=== PATIENT | male | born 1940 | race Caucasian/White ===

== ENCOUNTER 2016-06-21 10:00 | Inpatient (IN) | payer OTHER ==
--- NOTE | 2016-06-21 10:22 | CPEKG ---
Heart Rate: 66 RR Interval: 909 P-R Interval: 212 QRSD Interval: 100 QT Interval: 420 QTC Interval: 441 P [place]: 57 QRS [place]: -56 T Wave [place]: 19 EKG Severity - ABNORMAL ECG - EKG Impression: SINUS RHYTHM EKG Impression: LEFT ANTERIOR FASCICULAR BLOCK EKG Impression: LEFT VENTRICULAR HYPERTROPHY Electronically Signed By: Jeff Parker 21-Jun-2016 15:11:10
[2016-06-21 10:35] LABS: % IMMATURE GRANULYOCYTES 0.4 % (0.0-1.1); ABSOLUTE IMMATURE GRANULOCYTES 0.03 10^3/uL (0.00-0.10); ADD DIFF? NO; ADD MORPH? NO; ADD SCAN? NO; ATYPICAL LYMPHOCYTE FLAG 0 (0-99); FRAGMENT RBC FLAG 0 (0-99); HEMATOCRIT 42.9 % (40.0-51.0); LEFT SHIFT FLG 0 (0-99); LIPEMIA HEMOLYSIS FLAG 90 (0-99); MEAN CELL HEMOGLOBIN 31.4 pg (27.9-34.1); MEAN CELL VOLUME 89.9 fL (81.5-99.8); MEAN PLATELET VOLUME 9.5 fL (8.7-11.7); PLATELET CLUMPS FLAG 0 (0-99); PLATELET COUNT 226 10^3/uL (150-400); RED BLOOD CELL COUNT 4.77 10^6/uL (4.40-6.38); RED CELL DISTRIBUTION WIDTH 12.9 % (11.5-15.2)
--- NOTE | 2016-06-21 10:42 | EDPHY ---
H & P Time Seen by Provider: 06/21/16 10:25 HPI/ROS: Chief complaint. Expressive aphasia HPI. 75-year-old male presents to the emergency department with apparently difficulty finding words this morning. He tells me he knows what he wants to say but can't quite express it. He was apparently normal last night and then symptoms this morning. He has had similar symptoms previously that were due to hyponatremia. Denies chest discomfort, shortness of breath, abdominal pain. No weakness or altered sensation to arms or legs. No headache. No change in his vision. No new or different neck pain ROS Constitutional. no fever/chills, no weakness Eyes. no problems with vision ENT. no sore throat, no nasal drainage Cardiovascular. no chest pain Respiratory. no shortness of breath, no cough Abdominal. no abdominal pain, no nausea/vomiting, no diarrhea . no problems urinating MS. no calf pain/swelling, no neck/back pain, no joint pain Skin. no rash Lymph. no swollen glands Neuro. Difficulty speaking Past Medical/Surgical History: Past medical history significant for hyponatremia, previous neck fusions, depression, dyslipidemia, COPD, hypothyroid, hypertension Social History: , nonsmoker, no alcohol Smoking Status: Unknown if ever smoked Physical Exam: General Appearance: Alert well-developed male mild distress vital signs are stable Eyes: Pupils equal and round no pallor or injection. ENT, Mouth: Mucous membranes are moist. Respiratory: There are no retractions, lungs are clear to auscultation. Cardiovascular: Regular rate and rhythm. Gastrointestinal: Abdomen is soft and nontender, no masses, bowel sounds normal. Neurological: Awake and alert, sensory and motor exams grossly normal. Cranial nerves are normal. Speech is relatively normal. There is no pronator drift the [id number] is intact little shaky with both hands. [id number] is also intact bilaterally but a little bit shaky. Skin: Warm and dry, no rashes. Musculoskeletal: Neck is supple nontender. Extremities symmetrical, full range of motion. Psychiatric: Patient is oriented X 2, there is no agitation. He is not oriented to the day or month Constitutional: Initial Vital Signs Temperature (C) 37.2 C 06/21/16 10:13 Heart Rate 76 06/21/16 10:13 Respiratory Rate 18 06/21/16 10:13 Blood Pressure 185/109 H 06/21/16 10:13 O2 Sat (%) 94 06/21/16 10:13 O2 Delivery Mode Room Air Allergies/Adverse Reactions: No Known Allergies Allergy (Verified 06/21/16 10:13) Home Medications: Medication Instructions Recorded Albuterol [Proventil Inhaler HFA 1 - 2 puffs IH Q4H PRN 02/07/16 (*)] Acetaminophen [Tylenol 325mg (*)] 650 mg PO Q4 PRN #0 tab 02/11/16 Albuterol [Proventil Inhaler HFA 2 puffs IH Q4 PRN #0 mdi 02/11/16 (*)] Aspirin EC [Aspirin EC 81 mg (*)] 81 mg PO HS #0 tab 02/11/16 Atorvastatin Calcium [Lipitor 20 20 mg PO DAILY #0 tab 02/11/16 mg (*)] Cyclobenzaprine [Flexeril 10 MG 10 mg PO BID #0 tab 02/11/16 (*)] FLUoxetine [Prozac 20 MG (*)] 40 mg PO DAILY #0 cap 02/11/16 Fluticasone/Salmeter 250/50Mcg 1 puffs IH BID #0 disk 02/11/16 [Advair 250/50 (*)] Irbesartan [Avapro 150 mg (*)] 150 mg PO DAILY #0 tab 02/11/16 Levothyroxine [Synthroid 112 mcg 112 mcg PO DAILY@06 #0 tab 02/11/16 (*)] Magnesium Hydroxide [Milk of 30 ml PO DAILY PRN #0 udcup 02/11/16 Magnesia (*)] Melatonin [Melatonin 3 MG (*)] 3 mg PO HS #0 tab 02/11/16 OLANZapine [ZyPREXA 2.5 mg (*)] 2.5 mg PO BID #0 tab 02/11/16 [place]-3 Ethyl Est-Lovaza [Lovaza 1 2 gm PO BID #0 cap 02/11/16 gm (*)] Tamsulosin HCl [Flomax 0.4 MG (*)] 0.4 mg PO DAILY #0 cap 02/11/16 amLODIPine BESYLATE [Norvasc 2.5 2.5 mg PO DAILY #0 tab 02/11/16 mg (*)] carBAMazepine ER [Tegretol Xr] 400 mg PO BID #0 tab 02/11/16 Medical Decision Making - Diagnostics EKG Interpretation: The EKG interpreted by me shows normal sinus rhythm with normal interval. There is left axis deviation. There is a left anterior fascicular block. LVH by voltage. No significant ST elevation or depression. No arrhythmia. The rate is 66 Imaging: Head CT reviewed by me and discussed with Dr. gan is interpreted as nonacute One-view chest x-ray interpreted by me is nonacute Procedures: IV normal saline, monitor ED Course/Re-evaluation: Re-evaluation patient remains stable. He and I discussed imaging study results, treatment plan including recommendation for admission and importance of further evaluation. He expresses understanding and agreement I consulted and discussed the case with patient's regular physician Dr. Velasquez who sees the patient in the emergency department Differential Diagnosis: I differential diagnosis includes electrolyte abnormalities, CVA, TIA, intracranial hemorrhage - Data Points Laboratory Results: Laboratory Results 06/21/16 10:30 06/21/16 10:30 06/21/16 10:30 WBC 7.04 10^3/uL (3.80-9.50) RBC 4.77 10^6/uL (4.40-6.38) Hgb 15.0 g/dL (13.7-17.5) Hct 42.9 % (40.0-51.0) MCV 89.9 fL (81.5-99.8) MCH 31.4 pg (27.9-34.1) MCHC 35.0 g/dL (32.4-36.7) RDW 12.9 % (11.5-15.2) Plt Count 226 10^3/uL (150-400) MPV 9.5 fL (8.7-11.7) Neut % (Auto) 63.9 % (39.3-74.2) Lymph % (Auto) 21.6 % (15.0-45.0) [place] % (Auto) 9.5 % (4.5-13.0) Eos % (Auto) 4.0 % (0.6-7.6) Baso % (Auto) 0.6 % (0.3-1.7) Nucleat RBC Rel Count 0.0 % (0.0-0.2) Absolute Neuts (auto) 4.50 10^3/uL (1.70-6.50) Absolute Lymphs (auto) 1.52 10^3/uL (1.00-3.00) Absolute Monos (auto) 0.67 10^3/uL (0.30-0.80) Absolute Eos (auto) 0.28 10^3/uL (0.03-0.40) Absolute Basos (auto) 0.04 10^3/uL (0.02-0.10) Absolute Nucleated RBC 0.00 10^3/uL (0-0.01) Immature Gran % 0.4 % (0.0-1.1) Immature Gran # 0.03 10^3/uL (0.00-0.10) PT 11.7 L SEC (12.0-15.0) INR 0.87 (0.83-1.16) Sodium 138 mEq/L (134-144) Potassium 4.1 mEq/L (3.5-5.2) Chloride 100 mEq/L (97-110) Carbon Dioxide 28 mEq/l (22-31) Anion Gap 10 mEq/L (8-16) BUN 11 mg/dL (7-23) Creatinine 0.6 L mg/dL (0.7-1.3) Estimated GFR > 60 Glucose 118 H mg/dL (70-100) Calcium 9.7 mg/dL (8.5-10.4) Troponin I < 0.012 ng/mL (0-0.034) Departure - Departure Disposition: [facility] [place] Acute Clinical Impression: Expressive aphasia Transient cerebral ischemia Qualifiers: Transient cerebral ischemia type: other Qualifier Code: (G45.8) Other transient cerebral ischemic attacks and related syndromes Condition: Fair
[2016-06-21 10:52] LABS: ANION GAP 10 mEq/L (8-16); CALCIUM 9.7 mg/dL (8.5-10.4); CARBON DIOXIDE 28 mEq/l (22-31); CHLORIDE 100 mEq/L (97-110); CREATININE 0.6 mg/dL (0.7-1.3); GLOMERULAR FILTRATION RATE > 60; GLUCOSE 118 mg/dL (70-100); POTASSIUM 4.1 mEq/L (3.5-5.2); SODIUM 138 mEq/L (134-144)
[2016-06-21 10:54] LABS: INR 0.87 (0.83-1.16); PROTIME(PATIENT) 11.7 SEC (12.0-15.0)
[2016-06-21 11:03] LABS: TROPONIN I < 0.012 ng/mL (0-0.034)
--- NOTE | 2016-06-21 11:26 | CT ---
CT Brain (Without Contrast) June 21, 2016 at 11:11 hours History: Expressive aphasia. Comparison: MR February 07, 2016. Technique: Axial computed tomographic images of the brain without contrast. Dose reduction techniques were utilized. Findings: Ventricles, cisterns, and sulci are widened consistent with atrophy. No hydrocephalus, mid line shift/herniation, or epidural/subdural hematomas. No acute intraparenchymal hemorrhage or mass e ffect. Cerebrovascular atherosclerosis. Hypodensities in the white matter of bilateral cerebral hemis pheres. Bone windows demonstrate no displaced fractures. Mild mucosal thickening in the left maxilla ry sinus is present. Impression: 1. Moderate atrophy. 2. No acute hemorrhage, hydrocephalus, or mass effect. 3. Cerebrovascular atherosclerosis. 4. No definite acute infarct. 5. Moderate microvascular ischemic disease. Critical results relayed by Dr. Ballard to Dr. Parker at 11:23 a.m. 6. Consider MRI of the brain without and with contrast enhancement, if there is continued clinical co ncern.
--- NOTE | 2016-06-21 11:34 | DX ---
Portable AP Upright Chest - June 21, 2016, at 10:53 a.m. Clinical History: 75-year-old male with a syncopal event and an altered mental status. Comparison Study: Chest, dated July 15, 2013. Findings: Cervical arthrodesis hardware is once again seen. Telemetry monitoring lead lines are pres ent. There is a thoracolumbar junction scoliosis, with multilevel degenerative changes. The cardiac a nd mediastinal silhouette are normal. There is no focal infiltrate, atelectasis, pleural effusion, pe ripheral interstitial edema, or pneumothorax. Impression: No acute abnormality.
[2016-06-21 13:17] LABS: VITAMIN D 25-HYDROXY TOTAL 33.9 ng/mL (30-100)
[2016-06-21 13:42] LABS: HEMATOCRIT 42.9 % (40.0-51.0)
[2016-06-21] MEDS ORDERED: ALBUTEROL 60 PUFFS/8 GM MDI IH PRN (16:05)
[2016-06-21] MEDS: FLUoxetine 20 MG CAP PO SCH (17:36)
[2016-06-21] MEDS: CHLORTHALIDONE 25 MG TAB PO SCH (17:37)
[2016-06-21] MEDS: ASPIRIN 81 MG CHEWABLE TAB PO SCH (17:37)
[2016-06-21] MEDS: IRBESARTAN 150 MG TAB PO SCH (17:40)
--- NOTE | 2016-06-21 18:14 | GHP ---
[f rep st] HISTORY AND PHYSICAL DATE OF ADMISSION: 06/21/2016 REASON FOR ADMISSION: Mental status changes. HISTORY OF PRESENT ILLNESS: The patient states he has not been feeling very good for the last week o r so. Last night he had severe pain in his right hip. His suggested he call an ambulance last night for his hip pain; but he did not do so. This morning he awakened, and was feeling lousy. As trey burns got up, he noticed that he did not seem to be thinking clearly, had trouble finding words, and pres ented to the emergency room for evaluation. When he got to the emergency room, his blood pressure was elevated at 185/109. There was some concer n about the possibility of a transient ischemic attack versus a small CVA. CT of the head was unrema rkable. The patient states he felt lousy, and admitted for further evaluation. PAST MEDICAL HISTORY: Significant for obsessive-compulsive disorder, depression, back surgery, neck surgery, hypertension. REVIEW OF SYSTEMS: CONSTITUTIONAL: He feels bad, but is not able to be more descriptive as to how b ad he feels. CARDIOPULMONARY: He denies chest pain or shortness of breath. EXTREMITIES: His leg p ain is better today. NEUROLOGIC: He feels generally weak. PHYSICAL EXAMINATION: VITAL SIGNS: Blood pressure 185/109, pulse 76 regular, respirations 18, tempe rature 37.2, oxygen saturation 94% on room air. HEENT: Pupils were equal and reactive to light. Th roat was normal. HEART: Regular rate and rhythm without obvious murmur. LUNGS: Clear to auscultat ion. ABDOMEN: Slightly distended. Bowel sounds were normal. EXTREMITIES: Peripheral pulses were present. He had 1+ edema in his left leg, none in his right. Strength was excellent in his feet. IMPRESSION: Transient confusion of uncertain etiology. PLAN: 1. Will admit. 2. Will get physical therapy and occupational therapy evaluations. 3. Will work on getting his blood pressure under better control. /[id number]/MODL
[2016-06-21] MEDS: OMEGA-3 ETHYL EST-LOVAZA 1 GM CAP PO SCH (21:48)
[2016-06-21] MEDS: TAMSULOSIN HCL 0.4 MG CAP PO SCH (21:48)
[2016-06-21] MEDS: GABAPENTIN 100 MG CAP PO SCH (21:48)
[2016-06-21] MEDS: CYCLOBENZAPRINE 10 MG TAB PO SCH (21:48)
[2016-06-21] MEDS: OLANZapine 2.5 MG TAB PO SCH (21:48)
[2016-06-21] MEDS: ATORVASTATIN CALCIUM 20 MG TAB PO SCH (21:48)
[2016-06-21] MEDS: LORazepam 0.5 MG TAB PO PRN (21:49)
[2016-06-21] MEDS: FLUTICASONE/SALMETER 250/50MCG DISKUS IH SCH (21:55)
[2016-06-21] MEDS: ACETAMINOPHEN 325 MG TAB PO PRN (22:52)
[2016-06-22] MEDS: FLUoxetine 20 MG CAP PO SCH (08:19)
[2016-06-22] MEDS: OMEGA-3 ETHYL EST-LOVAZA 1 GM CAP PO SCH ×2 (08:20→21:15)
[2016-06-22] MEDS: IRBESARTAN 150 MG TAB PO SCH (08:20)
[2016-06-22] MEDS: CHLORTHALIDONE 25 MG TAB PO SCH (08:21)
[2016-06-22] MEDS: OLANZapine 2.5 MG TAB PO SCH ×2 (08:21→21:14)
[2016-06-22] MEDS: ASPIRIN 81 MG CHEWABLE TAB PO SCH (08:22)
[2016-06-22] MEDS: LEVOTHYROXINE 112 MCG TAB PO SCH (08:30)
[2016-06-22] MEDS: FLUTICASONE/SALMETER 250/50MCG DISKUS IH SCH (09:12)
--- NOTE | 2016-06-22 16:38 | SOAPPROG ---
SOAP Progress Note Assessment/Plan: Assessment: Confusion. Unsteady. Word finding issues. Plan: Reduce prozac. Follow symptoms. PTm OT consult. 06/22/16 16:38 Subjective: Still feeling bad. Non-descriptive. Bowels moving OK. Feels unsteady on his feet. Still feeling confused and having word finding issues. Objective: Vital Signs Temp Pulse Resp BP Pulse Ox 36.7 C 68 20 148/75 H 91 L 06/22/16 08:00 06/22/16 08:20 06/22/16 08:00 06/22/16 08:20 06/22/16 08:20 06/21/16 06/22/16 06/23/16 05:59 05:59 05:59 Output Total 125 Balance -125 PT 11.7 SEC (12.0-15.0) L 06/21/16 10:30 INR 0.87 (0.83-1.16) 06/21/16 10:30 Lungs clear to asc. COR RRR. BP better controlled. ICD10 Worksheet Patient Problems: Problems Problem Status Diagnosed Confusion Acute Expressive aphasia Acute Head injury Acute Scalp laceration Acute Syncope Acute TIA (transient ischemic attack) Acute Anxiety Acute Hypertension Acute OCD (obsessive compulsive disorder) Acute Spinal stenosis Acute
[2016-06-22] MEDS: ATORVASTATIN CALCIUM 20 MG TAB PO SCH (21:14)
[2016-06-22] MEDS: TAMSULOSIN HCL 0.4 MG CAP PO SCH (21:14)
[2016-06-22] MEDS: CYCLOBENZAPRINE 10 MG TAB PO SCH (21:14)
[2016-06-22] MEDS: GABAPENTIN 100 MG CAP PO SCH (21:14)
[2016-06-22] MEDS: LORazepam 0.5 MG TAB PO PRN (21:15)
--- NOTE | 2016-06-23 09:00 | SOAPPROG ---
SOAP Progress Note Assessment/Plan: Assessment: Confusion. Unsteady. Word finding issues- improved on lower dose of prozac. Hypertension not adequately controlled Plan: Reduce prozac. Follow symptoms. PT OT consult. Add guanfacine for blood pressure. Add trazodone for sleep. 06/22/16 16:38 06/23/16 08:59 Subjective: feels a little tired this morning. Not having significant leg pain, mild leg pain yesterday. Objective: Vital Signs Temp Pulse Resp BP Pulse Ox 36.7 C 66 22 H 156/70 H 91 L 06/23/16 08:00 06/23/16 08:00 06/23/16 08:00 06/23/16 08:00 06/23/16 08:00 06/22/16 06/23/16 06/24/16 05:59 05:59 05:59 Intake Total 500 Output Total 125 Balance -125 500 PT 11.7 SEC (12.0-15.0) L 06/21/16 10:30 INR 0.87 (0.83-1.16) 06/21/16 10:30 Blood pressure still elevated. He is a little more with it and easier to find words today. ICD10 Worksheet Patient Problems: Problems Problem Status Diagnosed Confusion Acute Expressive aphasia Acute Head injury Acute Scalp laceration Acute Syncope Acute TIA (transient ischemic attack) Acute Anxiety Acute Hypertension Acute OCD (obsessive compulsive disorder) Acute Spinal stenosis Acute
[2016-06-23] MEDS: ASPIRIN 81 MG CHEWABLE TAB PO SCH (09:04)
[2016-06-23] MEDS: LEVOTHYROXINE 112 MCG TAB PO SCH (09:04)
[2016-06-23] MEDS: OLANZapine 2.5 MG TAB PO SCH ×2 (09:05→21:30)
[2016-06-23] MEDS: CHLORTHALIDONE 25 MG TAB PO SCH (09:05)
[2016-06-23] MEDS: OMEGA-3 ETHYL EST-LOVAZA 1 GM CAP PO SCH ×2 (09:05→21:30)
[2016-06-23] MEDS: IRBESARTAN 150 MG TAB PO SCH (09:05)
[2016-06-23] MEDS: FLUoxetine 20 MG CAP PO SCH (09:05)
[2016-06-23] MEDS: carBAMazepine ER 400 MG TAB PO SCH ×2 (10:33→21:29)
[2016-06-23] MEDS: ACETAMINOPHEN 325 MG TAB PO PRN (18:12)
[2016-06-23] MEDS: GABAPENTIN 100 MG CAP PO SCH (21:30)
[2016-06-23] MEDS: TAMSULOSIN HCL 0.4 MG CAP PO SCH (21:30)
[2016-06-23] MEDS: traZODone 50 MG TAB PO SCH (21:30)
[2016-06-23] MEDS: guanFACINE HCL 1 MG TAB PO SCH (21:30)
[2016-06-23] MEDS: CYCLOBENZAPRINE 10 MG TAB PO SCH (21:30)
[2016-06-23] MEDS: ATORVASTATIN CALCIUM 20 MG TAB PO SCH (21:56)
[2016-06-23] MEDS: LORazepam 0.5 MG TAB PO PRN (23:09)
[2016-06-24] MEDS: LEVOTHYROXINE 112 MCG TAB PO SCH (06:02)
[2016-06-24] MEDS: OMEGA-3 ETHYL EST-LOVAZA 1 GM CAP PO SCH ×2 (08:32→20:44)
[2016-06-24] MEDS: ASPIRIN 81 MG CHEWABLE TAB PO SCH (08:32)
[2016-06-24] MEDS: carBAMazepine ER 400 MG TAB PO SCH ×2 (08:33→20:45)
[2016-06-24] MEDS: FLUoxetine 20 MG CAP PO SCH (08:33)
[2016-06-24] MEDS: IRBESARTAN 150 MG TAB PO SCH (08:33)
--- NOTE | 2016-06-24 08:33 | SOAPPROG ---
SOAP Progress Note Assessment/Plan: Assessment: Plan: 06/24/16 08:33 acute encephalopathy--likely due to a mixture of hypertensive urgency and psychotropics. complex depression--seemingly good mood stability HTN improving on average, but elevated this am. Meds adjusted yesterday, will see how this evolves word finding deficits, weakness--continue PT/OT today. Will see how he does. Dispo--ideally home with HC when appropriate. He has done exceedingly poorly in the SNF setting. Subjective: The patient states the night was far better for sleep. He is still resting comfortably this am. No sense of how strong he feels yet. Objective: Vital Signs Temp Pulse Resp BP Pulse Ox 34.5 C L 64 18 165/74 H 90 L 06/24/16 08:00 06/24/16 08:00 06/24/16 08:00 06/24/16 08:00 06/24/16 08:00 06/23/16 06/24/16 06/25/16 05:59 05:59 05:59 Intake Total 500 Balance 500 PT 11.7 SEC (12.0-15.0) L 06/21/16 10:30 INR 0.87 (0.83-1.16) 06/21/16 10:30 Gen: slumberous, answers questions easily. Lungs: CTAB Heart: RRR Abd + bs soft LE's no edema Neuro: sleepy this am. Answers are appropriate, but he has yet to wake up and test the day ICD10 Worksheet Patient Problems: Problems Problem Status Diagnosed Confusion Acute Expressive aphasia Acute Head injury Acute Scalp laceration Acute Syncope Acute TIA (transient ischemic attack) Acute Anxiety Acute Hypertension Acute OCD (obsessive compulsive disorder) Acute Spinal stenosis Acute
[2016-06-24] MEDS: CHLORTHALIDONE 25 MG TAB PO SCH (08:34)
[2016-06-24] MEDS: OLANZapine 2.5 MG TAB PO SCH ×2 (08:34→20:45)
[2016-06-24] MEDS: GABAPENTIN 100 MG CAP PO SCH (20:45)
[2016-06-24] MEDS: guanFACINE HCL 1 MG TAB PO SCH (20:45)
[2016-06-24] MEDS: ATORVASTATIN CALCIUM 20 MG TAB PO SCH (20:45)
[2016-06-24] MEDS: CYCLOBENZAPRINE 10 MG TAB PO SCH (20:45)
[2016-06-24] MEDS: TAMSULOSIN HCL 0.4 MG CAP PO SCH (20:49)
[2016-06-24] MEDS: traZODone 50 MG TAB PO SCH (20:49)
[2016-06-25] MEDS: LEVOTHYROXINE 112 MCG TAB PO SCH (04:50)
[2016-06-25 05:19] LABS: ANION GAP 11 mEq/L (8-16); CALCIUM 9.3 mg/dL (8.5-10.4); CARBON DIOXIDE 25 mEq/l (22-31); CHLORIDE 101 mEq/L (97-110); CREATININE 0.8 mg/dL (0.7-1.3); GLOMERULAR FILTRATION RATE > 60; GLUCOSE 125 mg/dL (70-100); POTASSIUM 4.2 mEq/L (3.5-5.2); SODIUM 137 mEq/L (134-144)
[2016-06-25] MEDS: OMEGA-3 ETHYL EST-LOVAZA 1 GM CAP PO SCH ×2 (08:24→19:52)
[2016-06-25] MEDS: ASPIRIN 81 MG CHEWABLE TAB PO SCH (08:24)
[2016-06-25] MEDS: CHLORTHALIDONE 25 MG TAB PO SCH (08:24)
[2016-06-25] MEDS: FLUoxetine 20 MG CAP PO SCH (08:24)
[2016-06-25] MEDS: OLANZapine 2.5 MG TAB PO SCH ×2 (08:24→19:52)
[2016-06-25] MEDS: carBAMazepine ER 400 MG TAB PO SCH ×2 (08:24→19:55)
[2016-06-25] MEDS: IRBESARTAN 150 MG TAB PO SCH (08:25)
--- NOTE | 2016-06-25 13:53 | SOAPPROG ---
SOAP Progress Note Assessment/Plan: Assessment: Confusion. Unsteady. Word finding issues- improved on lower dose of prozac. Hypertension now adequately controlled. Leg pain, probably radicular. Plan: Follow symptoms. PT OT consult. MRI of lumbar spine. 06/22/16 16:38 06/23/16 08:59 06/25/16 13:52 Subjective: Still having dunia in his R leg. Sleeping OK. Feeling somewhat weak and continues to have some word finding issues. Objective: Vital Signs Temp Pulse Resp BP Pulse Ox 36.8 C 62 16 142/80 H 93 06/25/16 07:15 06/25/16 07:15 06/25/16 07:15 06/25/16 07:15 06/25/16 07:15 Laboratory Results 06/25/16 04:33 06/24/16 06/25/16 06/26/16 05:59 05:59 05:59 Output Total 900 600 Balance -900 -600 PT 11.7 SEC (12.0-15.0) L 06/21/16 10:30 INR 0.87 (0.83-1.16) 06/21/16 10:30 No pain with rotation of hips. No edema in legs. Lungs clear. COR RRR ICD10 Worksheet Patient Problems: Problems Problem Status Diagnosed Confusion Acute Expressive aphasia Acute Head injury Acute Scalp laceration Acute Syncope Acute TIA (transient ischemic attack) Acute Anxiety Acute Hypertension Acute OCD (obsessive compulsive disorder) Acute Spinal stenosis Acute
[2016-06-25] MEDS: ACETAMINOPHEN 325 MG TAB PO PRN (19:52)
[2016-06-25] MEDS: ATORVASTATIN CALCIUM 20 MG TAB PO SCH (19:52)
[2016-06-25] MEDS: GABAPENTIN 100 MG CAP PO SCH (19:52)
[2016-06-25] MEDS: TAMSULOSIN HCL 0.4 MG CAP PO SCH (19:52)
[2016-06-25] MEDS: MELATONIN 3 MG TAB PO PRN (19:52)
[2016-06-25] MEDS: CYCLOBENZAPRINE 10 MG TAB PO SCH (19:53)
[2016-06-25] MEDS: guanFACINE HCL 1 MG TAB PO SCH (19:53)
[2016-06-25] MEDS: traZODone 50 MG TAB PO SCH (19:53)
[2016-06-26] MEDS: LEVOTHYROXINE 112 MCG TAB PO SCH (05:02)
[2016-06-26] MEDS: ACETAMINOPHEN 325 MG TAB PO PRN ×2 (05:02→13:49)
--- NOTE | 2016-06-26 09:12 | MR ---
MRI of the Lumbar Spine (Without Contrast) Clinical Indications: Back pain radiating down to the right leg. Comparison: March 16, 2013. Technique: Sagittal and axial images of the lumbar spine were acquired using T1-weighted and fast T2 -weighted sequences. Findings: The patient has mild biphasic scoliosis of the lumbar spine. The conus terminates at L1. Th ere is no acute compression deformity. There is new onset bone marrow edema/T2 hyperintensity in T12 and L1. In the absence of compression deformity of the vertebrae, primary differential is edema relat ed to degenerative disk disease. Similarly, to a milder extent, there is edema at the superior left s valeria of L5, also without discernible fracture or compression deformity. The paraspinal soft tissues ar e symmetric without mass or adenopathy. T10-T11: There is moderate bilateral facet arthropathy. There is a small central broad-based disk bul ge with moderate canal stenosis. There is moderate bilateral foraminal stenosis. T11-T12: Again noted is bilateral moderate facet arthropathy and a broad-based central disk bulge. Th ere is mild canal stenosis, moderate right foraminal stenosis, and mild left foraminal stenosis. At T12-L1: There is a moderate central broad-based disk bulge with bilateral facet disease causing mo derate canal stenosis and severe bilateral foraminal stenosis, right worse than left. L1-L2: There is moderate canal stenosis caused by a broad-based central disk bulge. Combined with fac et disease, there is severe left foraminal stenosis and moderate right foraminal stenosis. L2-L3: There is moderate bilateral facet disease and a small central broad-based disk bulge. There is severe left foraminal stenosis with a left L2 nerve impingement, caused by the disk bulge and facet disease. There is mild central canal stenosis. L3-L4: There is mild central canal stenosis, and moderate right and severe left foraminal stenosis. A gain, these are caused by broad-based central disk bulge and facet arthropathy. L4-L5: There is moderate to severe canal stenosis with a central broad-based disk bulge. The right fo ramen is severely stenotic, with right L4 nerve impingement. L5-S1: There is a broad-based central disk bulge with moderate bilateral facet arthropathy. The janell inal stenosis is moderate to severe bilaterally. Impression: 1. Central disk bulge and facet disease throughout the visualized thoracolumbar spine. 2. Multiple levels of canal and foraminal stenoses, all for the most part moderate to severe, through out the visualized thoracolumbar spine. Basically, there would be an anatomic explanation for any loc ation of pain in this patient. Injection can be performed correlating to the location of pain and the likely nerve/level involved, if clinically indicated. 3. New bone marrow edema in T12 and L1, and also to a milder extent at L5. Primary differential for t his is worsening degenerative disk disease. In the absence of any visible fracture or compression def ormity, insufficiency fracture is thought to be less likely as a cause of this edema.
[2016-06-26] MEDS: OMEGA-3 ETHYL EST-LOVAZA 1 GM CAP PO SCH ×2 (11:15→20:05)
[2016-06-26] MEDS: IRBESARTAN 150 MG TAB PO SCH (11:16)
[2016-06-26] MEDS: FLUoxetine 20 MG CAP PO SCH (11:16)
[2016-06-26] MEDS: carBAMazepine ER 400 MG TAB PO SCH ×2 (11:16→20:06)
[2016-06-26] MEDS: CHLORTHALIDONE 25 MG TAB PO SCH (11:17)
[2016-06-26] MEDS: ASPIRIN 81 MG CHEWABLE TAB PO SCH (11:17)
[2016-06-26] MEDS: OLANZapine 2.5 MG TAB PO SCH ×2 (11:17→20:04)
--- NOTE | 2016-06-26 13:07 | SOAPPROG ---
SOAP Progress Note Assessment/Plan: Assessment: Confusion. Depression. 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 Plan: Add wellbutrin. Consider nerve root injection if symptoms persist. PT/ OT . SNF soon. 06/22/16 16:38 06/23/16 08:59 06/25/16 13:52 06/26/16 13:06 Subjective: Depression is a bit worse today. On lower dose of prozac. No BM for 2 days. Back pain is intermittently problematic. Objective: Vital Signs Temp Pulse Resp BP Pulse Ox 35.9 C L 65 16 155/67 H 92 06/26/16 08:00 06/26/16 08:00 06/26/16 08:00 06/26/16 08:00 06/26/16 08:00 Laboratory Results 06/25/16 04:33 06/25/16 06/26/16 06/27/16 05:59 05:59 05:59 Intake Total 800 Output Total 900 1300 Balance -900 -500 PT 11.7 SEC (12.0-15.0) L 06/21/16 10:30 INR 0.87 (0.83-1.16) 06/21/16 10:30 Lungs clear. COR RRR. MRI of lumbar spine reviewed. ICD10 Worksheet Patient Problems: Problems Problem Status Diagnosed Confusion Acute Expressive aphasia Acute Head injury Acute Scalp laceration Acute Syncope Acute TIA (transient ischemic attack) Acute Anxiety Acute Hypertension Acute OCD (obsessive compulsive disorder) Acute Spinal stenosis Acute
[2016-06-26] MEDS: MAGNESIUM OXIDE 400 MG TAB PO SCH (13:49)
[2016-06-26] MEDS: buPROPion XL 150 MG TAB PO SCH (13:49)
[2016-06-26] MEDS: IBUPROFEN 200 MG TAB PO PRN (15:28)
[2016-06-26] MEDS: guanFACINE HCL 1 MG TAB PO SCH (20:02)
[2016-06-26] MEDS: DOCUSATE SODIUM 100 MG CAP PO PRN (20:04)
[2016-06-26] MEDS: GABAPENTIN 100 MG CAP PO SCH (20:04)
[2016-06-26] MEDS: ATORVASTATIN CALCIUM 20 MG TAB PO SCH (20:05)
[2016-06-26] MEDS: SENNOSIDES/DOCUSATE SODIUM TAB PO PRN (20:05)
[2016-06-26] MEDS: traZODone 50 MG TAB PO SCH (20:06)
[2016-06-26] MEDS: CYCLOBENZAPRINE 10 MG TAB PO SCH (20:06)
[2016-06-26] MEDS: TAMSULOSIN HCL 0.4 MG CAP PO SCH (20:06)
[2016-06-26] MEDS: MELATONIN 3 MG TAB PO PRN (20:06)
[2016-06-26] MEDS: LORazepam 0.5 MG TAB PO PRN (20:07)
[2016-06-27] MEDS: ACETAMINOPHEN 325 MG TAB PO PRN ×2 (03:12→16:44)
[2016-06-27] MEDS: IBUPROFEN 200 MG TAB PO PRN ×2 (03:12→16:46)
[2016-06-27] MEDS: LEVOTHYROXINE 112 MCG TAB PO SCH (03:13)
[2016-06-27] MEDS: carBAMazepine ER 400 MG TAB PO SCH ×2 (08:22→20:14)
[2016-06-27] MEDS: OLANZapine 2.5 MG TAB PO SCH ×2 (08:23→20:17)
[2016-06-27] MEDS: MAGNESIUM OXIDE 400 MG TAB PO SCH (08:23)
[2016-06-27] MEDS: buPROPion XL 150 MG TAB PO SCH (08:23)
[2016-06-27] MEDS: CHLORTHALIDONE 25 MG TAB PO SCH (08:23)
[2016-06-27] MEDS: OMEGA-3 ETHYL EST-LOVAZA 1 GM CAP PO SCH ×2 (08:24→20:14)
[2016-06-27] MEDS: FLUoxetine 20 MG CAP PO SCH (08:27)
[2016-06-27] MEDS: ASPIRIN 81 MG CHEWABLE TAB PO SCH (08:27)
[2016-06-27] MEDS: IRBESARTAN 150 MG TAB PO SCH (08:27)
--- NOTE | 2016-06-27 13:43 | SOAPPROG ---
SOAP Progress Note Assessment/Plan: Assessment: Confusion. Depression. 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 WEakness Plan: Continue current treatment. [facility] in AM. 06/22/16 16:38 06/23/16 08:59 06/25/16 13:52 06/26/16 13:06 06/27/16 13:43 Subjective: Feeling better today. Less depressed. BM yesterday. Objective: Vital Signs Temp Pulse Resp BP Pulse Ox 36.9 C 68 12 155/80 H 92 06/27/16 08:19 06/27/16 08:19 06/27/16 08:19 06/27/16 08:19 06/27/16 08:19 Laboratory Results 06/25/16 04:33 06/26/16 06/27/16 06/28/16 05:59 05:59 05:59 Intake Total 800 375 Output Total 1300 850 Balance -500 -475 PT 11.7 SEC (12.0-15.0) L 06/21/16 10:30 INR 0.87 (0.83-1.16) 06/21/16 10:30 Mild cough despite lungs clear to asc. COR RRR. No significant edema. ICD10 Worksheet Patient Problems: Problems Problem Status Diagnosed Confusion Acute Expressive aphasia Acute Head injury Acute Scalp laceration Acute Syncope Acute TIA (transient ischemic attack) Acute Anxiety Acute Hypertension Acute OCD (obsessive compulsive disorder) Acute Spinal stenosis Acute
[2016-06-27] MEDS: traZODone 50 MG TAB PO SCH (20:14)
[2016-06-27] MEDS: guanFACINE HCL 1 MG TAB PO SCH (20:15)
[2016-06-27] MEDS: CYCLOBENZAPRINE 10 MG TAB PO SCH (20:15)
[2016-06-27] MEDS: DOCUSATE SODIUM 100 MG CAP PO PRN (20:15)
[2016-06-27] MEDS: MELATONIN 3 MG TAB PO PRN (20:17)
[2016-06-27] MEDS: TAMSULOSIN HCL 0.4 MG CAP PO SCH (20:17)
[2016-06-27] MEDS: SENNOSIDES/DOCUSATE SODIUM TAB PO PRN (20:17)
[2016-06-27] MEDS: ATORVASTATIN CALCIUM 20 MG TAB PO SCH (20:17)
[2016-06-27] MEDS: GABAPENTIN 100 MG CAP PO SCH (20:18)
[2016-06-27] MEDS: LORazepam 0.5 MG TAB PO PRN (20:18)
[2016-06-28] MEDS: LEVOTHYROXINE 112 MCG TAB PO SCH (06:12)
[2016-06-28] MEDS: ASPIRIN 81 MG CHEWABLE TAB PO SCH (09:25)
[2016-06-28] MEDS: CHLORTHALIDONE 25 MG TAB PO SCH (09:25)
[2016-06-28] MEDS: FLUoxetine 20 MG CAP PO SCH (09:25)
[2016-06-28] MEDS: OMEGA-3 ETHYL EST-LOVAZA 1 GM CAP PO SCH ×2 (09:25→20:38)
[2016-06-28] MEDS: buPROPion XL 150 MG TAB PO SCH (09:25)
[2016-06-28] MEDS: OLANZapine 2.5 MG TAB PO SCH ×2 (09:26→20:43)
[2016-06-28] MEDS: carBAMazepine ER 400 MG TAB PO SCH ×2 (09:26→20:42)
[2016-06-28] MEDS: MAGNESIUM OXIDE 400 MG TAB PO SCH (09:26)
[2016-06-28] MEDS: IRBESARTAN 150 MG TAB PO SCH (09:26)
--- NOTE | 2016-06-28 09:47 | PDIAF ---
- Diagnosis Code Status: Full Code - Medication Management Discharge Medications: Medications to Continue on Transfer Fluticasone/Salmeter 250/50Mcg [Advair 250/50 (*)] 1 puffs IH BID #0 disk [Last Taken 06/20/16 21:00] Diclofenac Sodium [Voltaren Gel (*)] 1 [place] TP BID PRN 06/21/16 [Last Taken Unknown] Acetaminophen [Tylenol 325mg (*)] 325 mg PO Q6 PRN #0 tab 06/28/16 [Last Taken Unknown] Albuterol [Proventil Inhaler HFA (*)] 2 puffs IH Q4H PRN #0 mdi 06/28/16 [Last Taken Unknown] Aspirin [Aspirin 81mg (*)] 81 mg PO DAILY #0 tab.chew 06/28/16 [Last Taken Unknown] Atorvastatin Calcium [Lipitor 20 mg (*)] 20 mg PO HS #0 tab 06/28/16 [Last Taken Unknown] Chlorthalidone [Chlorthalidone 25 mg (*)] 25 mg PO DAILY #0 tab 06/28/16 [Last Taken Unknown] Cyclobenzaprine [Flexeril 10 MG (*)] 10 mg PO HS #0 tab 06/28/16 [Last Taken Unknown] Docusate Sodium [Colace 100 MG (*)] 100 mg PO BID PRN #0 cap 06/28/16 [Last Taken Unknown] FLUoxetine [Prozac 20 MG (*)] 20 mg PO DAILY #0 cap 06/28/16 [Last Taken Unknown ] Gabapentin [Neurontin 100 MG (*)] 100 mg PO HS #0 cap 06/28/16 [Last Taken Unknown] Ibuprofen [Motrin (*)] 400 mg PO Q6HRS PRN #0 tab 06/28/16 [Last Taken Unknown] Irbesartan [Avapro 150 mg (*)] 150 mg PO DAILY #0 tab 06/28/16 [Last Taken Unknown] LORazepam [Ativan (*)] 0.25 mg PO HS PRN #0 tab 06/28/16 [Last Taken Unknown] Levothyroxine [Synthroid 112 mcg (*)] 112 mcg PO DAILY@06 #0 tab 06/28/16 [Last Taken Unknown] Magnesium Oxide [Magnesium Oxide 400 mg (*)] 400 mg PO DAILY #0 tab 06/28/16 [ Last Taken Unknown] Melatonin [Melatonin 3 MG (*)] 3 mg PO HS PRN #0 tab 06/28/16 [Last Taken Unknown] OLANZapine [ZyPREXA 2.5 mg (*)] 2.5 mg PO BID #0 tab 06/28/16 [Last Taken Unknown] [place]-3 Ethyl Est-Lovaza [Lovaza 1 gm (*)] 2 gm PO BID #0 cap 06/28/16 [Last Taken Unknown] Polyethylene Glycol 3350 [Miralax 17 gm (*)] 17 gm PO DAILY PRN #0 pkt 06/28/16 [Last Taken Unknown] Sennosides/Docusate Sodium [Senokot-S] 1 tab PO BID PRN #0 tab 06/28/16 [Last Taken Unknown] Tamsulosin HCl [Flomax 0.4 MG (*)] 0.4 mg PO HS #0 cap 06/28/16 [Last Taken Unknown] amLODIPine BESYLATE [Norvasc 2.5 mg (*)] 2.5 mg PO DAILY #0 tab 06/28/16 [Last Taken Unknown] buPROPion XL [Wellbutrin 150mg XL] 150 mg PO DAILY #0 tab 06/28/16 [Last Taken Unknown] carBAMazepine ER [TEGretol XR] 400 mg PO BID #0 tab 06/28/16 [Last Taken Unknown ] guanFACINE HCL [Guanfacine HCl 1 MG (*)] 1 mg PO HS #0 tab 06/28/16 [Last Taken Unknown] traZODone [traZODONE 50MG (*)] 50 mg PO HS #0 tab 06/28/16 [Last Taken Unknown] Discharge Medications: Refer to the Discharge Home Medication list for PRN reason. PICC Care - Routine: N/A - Orders Services needed: Physical Therapy, Occupational Therapy Diet Recommendation: no restrictions on diet Diet Texture: Regular Texture Diet Weigh Patient: weekly [place]: No - Follow Up Care Current Providers and Referrals: Vahe Velasquez MD [Primary Care Provider] - As per Instructions
--- NOTE | 2016-06-28 10:18 | GDS ---
[f rep st] DISCHARGE SUMMARY ADMISSION DIAGNOSES: 1. Confusion. 2. Weakness, new onset. DISCHARGE DIAGNOSES: 1. Confusion. 2. Weakness, new onset. PROCEDURES: None. MEDICATION CHANGES: None. COMPLICATIONS: None. HOSPITAL COURSE: The patient was admitted with confusion, word finding problems and weakness. He wa s felt to be a fall risk. His medications were changed. He had some problems with depression and co nstipation during the hospitalization. These were adjusted. He was doing better. His depression wa s under better control. His pain was under better control. He was still considered to be a fall ris k, and is being transferred to [facility] for long-term rehab. /[id number]/MODL
[2016-06-28 15:33] VITALS: O2SAT 90
[2016-06-28] MEDS: POLYETHYLENE GLYCOL 3350 17 GM PKT PO PRN (16:03)
[2016-06-28] MEDS: traZODone 50 MG TAB PO SCH (20:39)
[2016-06-28] MEDS: SENNOSIDES/DOCUSATE SODIUM TAB PO PRN (20:39)
[2016-06-28] MEDS: DOCUSATE SODIUM 100 MG CAP PO PRN (20:39)
[2016-06-28] MEDS: guanFACINE HCL 1 MG TAB PO SCH (20:40)
[2016-06-28] MEDS: IBUPROFEN 200 MG TAB PO PRN (20:42)
[2016-06-28] MEDS: GABAPENTIN 100 MG CAP PO SCH (20:42)
[2016-06-28] MEDS: ATORVASTATIN CALCIUM 20 MG TAB PO SCH (20:42)
[2016-06-28] MEDS: MELATONIN 3 MG TAB PO PRN (20:42)
[2016-06-28] MEDS: CYCLOBENZAPRINE 10 MG TAB PO SCH (20:43)
[2016-06-28] MEDS: TAMSULOSIN HCL 0.4 MG CAP PO SCH (20:43)
[2016-06-28] MEDS: ACETAMINOPHEN 325 MG TAB PO PRN (20:43)
[2016-06-28] MEDS: LORazepam 0.5 MG TAB PO PRN (20:44)
[2016-06-29] MEDS: LEVOTHYROXINE 112 MCG TAB PO SCH (06:13)
[2016-06-29 07:17] VITALS: BP 141/70; PULSE 68; RESP 16; TEMP 97
[2016-06-29] MEDS: MAGNESIUM OXIDE 400 MG TAB PO SCH (08:22)
[2016-06-29] MEDS: OLANZapine 2.5 MG TAB PO SCH (08:22)
[2016-06-29] MEDS: OMEGA-3 ETHYL EST-LOVAZA 1 GM CAP PO SCH (08:22)
[2016-06-29] MEDS: IRBESARTAN 150 MG TAB PO SCH (08:22)
[2016-06-29] MEDS: FLUoxetine 20 MG CAP PO SCH (08:23)
[2016-06-29] MEDS: ASPIRIN 81 MG CHEWABLE TAB PO SCH (08:23)
[2016-06-29] MEDS: carBAMazepine ER 400 MG TAB PO SCH (08:23)
[2016-06-29] MEDS: buPROPion XL 150 MG TAB PO SCH (08:23)
[2016-06-29] MEDS: CHLORTHALIDONE 25 MG TAB PO SCH (08:23)
[2016-06-29] MEDS: POLYETHYLENE GLYCOL 3350 17 GM PKT PO PRN (09:44)
--- NOTE | 2016-06-29 13:03 | SOAPPROG ---
SOAP Progress Note Assessment/Plan: Assessment: Confusion. Depression. 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 WEakness Plan: due to the electronic order system erasing my DC order from yesterday, the patient spent an additional night in the hospital for no reason. Will DC now. 06/22/16 16:38 06/23/16 08:59 06/25/16 13:52 06/26/16 13:06 06/27/16 13:43 06/29/16 13:02 Objective: Vital Signs Temp Pulse Resp BP Pulse Ox 36.1 C 68 16 141/70 H 90 L 06/29/16 07:14 06/29/16 07:14 06/29/16 07:14 06/29/16 07:14 06/29/16 07:14 Laboratory Results 06/25/16 04:33 PT 11.7 SEC (12.0-15.0) L 06/21/16 10:30 INR 0.87 (0.83-1.16) 06/21/16 10:30 ICD10 Worksheet Patient Problems: Problems Problem Status Diagnosed Confusion Acute Expressive aphasia Acute Head injury Acute Scalp laceration Acute Syncope Acute TIA (transient ischemic attack) Acute Anxiety Acute Hypertension Acute OCD (obsessive compulsive disorder) Acute Spinal stenosis Acute
--- NOTE | 2016-07-02 09:54 | PQFORM ---
PHYSICIAN QUERY FORM Needs Your Response This query form is being sent to you to assure this patient record is coded properly. Please respond to the question below: PROVIDER EDUCATION SPECIALIST QUESTION: Dr. Velasquez, NEVAEH Martins answered a Query with documentation in the progress notes, about clarifying the patient's confusion as encephalopathy due to Hypertension. The medical record reflects the following clinical findings and treatment. Clinical indicators: Mental status changes,confusion Risk factors: Age 75, hypertension Treatment: monitor BP,medication After further study, could this patient's confusion be further specified as ( X) Acute Encephalopathy ( ) other explanation of clinical findings ( ) unable to determine Please clarify and document your clinical opinion in Discharge Summary. Thank you. Fabby Godfrey, Lens Cleaner [phone] INSTRUCTIONS FOR RESPONSE: Answer question by clicking on the "Edit Document" button. Move cursor to area below the stars. When complete, hit "Save." Click on the "Sign" button, then click "Sign" again. Type in your PIN and hit "Enter." MTDD
== END 2016-06-29 15:24 | DRG 304 ==
LOC: EDUNIT# → OBSVTOIN 12:43 → F3E 15:14
PROVIDERS: ADMIT Internal Medicine; ATTEND Internal Medicine
DX: I16.0 Hypertensive urgency (principal); G93.40 Encephalopathy, unspecified; F32.9 Major depressive disorder, single episode, unspecified; K59.00 Constipation, unspecified; J44.9 Chronic obstructive pulmonary disease, unspecified; E78.5 Hyperlipidemia, unspecified; E03.9 Hypothyroidism, unspecified; Z98.1 Arthrodesis status
CPT/HCPCS: 82607-90; 97116-GP; 97161-GP; 97166-GO; 97530-GO; 97535-GO; G8978-GP-CJ; G8978-GP-CK; G8979-GP-CI; G8980-GP-CJ; G8987-GO-CK; G8988-GO-CJ

== ENCOUNTER 2016-07-31 05:00 | Inpatient (IN) | payer OTHER ==
[2016-07-31 05:35] LABS: % IMMATURE GRANULYOCYTES 0.9 % (0.0-1.1); ABSOLUTE IMMATURE GRANULOCYTES 0.08 10^3/uL (0.00-0.10); ADD DIFF? NO; ADD MORPH? NO; ADD SCAN? NO; ATYPICAL LYMPHOCYTE FLAG 0 (0-99); FRAGMENT RBC FLAG 0 (0-99); HEMATOCRIT 36.3 % (40.0-51.0); HEMOGLOBIN 13.1 g/dL (13.7-17.5); LEFT SHIFT FLG 0 (0-99); LIPEMIA HEMOLYSIS FLAG 90 (0-99); MEAN CELL HEMOGLOBIN 30.6 pg (27.9-34.1); MEAN CELL HEMOGLOBIN CONCENTR. 36.1 g/dL (32.4-36.7); MEAN CELL VOLUME 84.8 fL (81.5-99.8); MEAN PLATELET VOLUME 9.4 fL (8.7-11.7); PLATELET CLUMPS FLAG 0 (0-99); PLATELET COUNT 254 10^3/uL (150-400); RED BLOOD CELL COUNT 4.28 10^6/uL (4.40-6.38)
[2016-07-31] MEDS ORDERED: NS 1,000 ML IV ONE (05:41)
[2016-07-31] MEDS ORDERED: ONDANSETRON 4 MG/2 ML VIAL IVP ONE (05:41)
[2016-07-31 05:46] LABS: ANION GAP 10 mEq/L (8-16); CALCIUM 9.3 mg/dL (8.5-10.4); CARBON DIOXIDE 26 mEq/l (22-31); CHLORIDE 78 mEq/L (97-110); CREATININE 0.6 mg/dL (0.7-1.3); GLOMERULAR FILTRATION RATE > 60; GLUCOSE 169 mg/dL (70-100)
[2016-07-31] MEDS ORDERED: PANTOPRAZOLE SODIUM 80 MG in NS 100 ML IV ONE (05:46)
--- NOTE | 2016-07-31 05:46 | EDPHY ---
H & P Stated Complaint: vomiting Time Seen by Provider: 07/31/16 05:03 HPI/ROS: HPI The patient presents from [facility], brought in by ambulance for vomiting which occurred just prior to arrival. Apparently it was coffee-ground in appearance. The patient states he feels nauseous, though is unable to provide any further history because of confusion which is his baseline in recent months. He was recently admitted to the hospital last month for confusion. His goals of care state that he would like selective treatment with CPR. He is on ibuprofen as needed and a baby aspirin daily.. REVIEW OF SYSTEMS Unable to provide due to his confusion. PMHx: Recent admission for weakness and confusion, history of OCD, bipolar disorder, polyneuropathy, insomnia, hypertension Soc Hx: Resides at [facility] PHYSICAL General Appearance: Alert, no distress Eyes: Pupils equal and round no pallor or injection ENT, Mouth: Mucous membranes moist Respiratory: There are no retractions, lungs are clear to auscultation Cardiovascular: Regular rate and rhythm Gastrointestinal: Abdomen is soft and non-tender, no masses, bowel sounds normal Neurological: A&O, moves all extremities Skin: Warm and dry, no rashes Musculoskeletal: Neck is supple non tender Extremities: symmetrical, full range of motion Psychiatric: There is no agitation Source: Patient, EMS - Personal History Current Tetanus/Diphtheria Vaccine: Unsure Current Tetanus Diphtheria and Acellular Pertussis (TDAP): Unsure Tetanus Vaccine Date: 2003 - Medical/Surgical History Hx Asthma: No Hx Chronic Respiratory Disease: No Hx Diabetes: No Hx Cardiac Disease: No Hx Renal Disease: No Hx Cirrhosis: No Hx Alcoholism: No Hx HIV/AIDS: No Hx Splenectomy or Spleen Trauma: No Other PMH: 12 neck fusions. HTN. Cataracs. bipolar, anxiety - Social History Smoking Status: Former smoker Constitutional: Initial Vital Signs Temperature (C) 37.7 C 07/31/16 05:08 Heart Rate 75 07/31/16 05:08 Respiratory Rate 16 07/31/16 05:08 Blood Pressure 152/80 H 07/31/16 05:08 O2 Sat (%) 98 07/31/16 05:08 O2 Delivery Mode Room Air Allergies/Adverse Reactions: No Known Allergies Allergy (Verified 06/21/16 10:13) Home Medications: Medication Instructions Recorded Fluticasone/Salmeter 250/50Mcg 1 puffs IH BID #0 disk 02/11/16 [Advair 250/50 (*)] Diclofenac Sodium [Voltaren Gel 1 eugene TP BID PRN 06/21/16 (*)] Acetaminophen [Tylenol 325mg (*)] 325 mg PO Q6 PRN #0 tab 06/28/16 Albuterol [Proventil Inhaler HFA 2 puffs IH Q4H PRN #0 mdi 06/28/16 (*)] Aspirin [Aspirin 81mg (*)] 81 mg PO DAILY #0 tab.chew 06/28/16 Atorvastatin Calcium [Lipitor 20 20 mg PO HS #0 tab 06/28/16 mg (*)] Chlorthalidone [Chlorthalidone 25 25 mg PO DAILY #0 tab 06/28/16 mg (*)] Cyclobenzaprine [Flexeril 10 MG 10 mg PO HS #0 tab 06/28/16 (*)] Docusate Sodium [Colace 100 MG (*)] 100 mg PO BID PRN #0 cap 06/28/16 FLUoxetine [Prozac 20 MG (*)] 20 mg PO DAILY #0 cap 06/28/16 Gabapentin [Neurontin 100 MG (*)] 100 mg PO HS #0 cap 06/28/16 Ibuprofen [Motrin (*)] 400 mg PO Q6HRS PRN #0 tab 06/28/16 Irbesartan [Avapro 150 mg (*)] 150 mg PO DAILY #0 tab 06/28/16 LORazepam [Ativan (*)] 0.25 mg PO HS PRN #0 tab 06/28/16 Levothyroxine [Synthroid 112 mcg 112 mcg PO DAILY@06 #0 tab 06/28/16 (*)] Magnesium Oxide [Magnesium Oxide 400 mg PO DAILY #0 tab 06/28/16 400 mg (*)] Melatonin [Melatonin 3 MG (*)] 3 mg PO HS PRN #0 tab 06/28/16 OLANZapine [ZyPREXA 2.5 mg (*)] 2.5 mg PO BID #0 tab 06/28/16 Sheridan-3 Ethyl Est-Lovaza [Lovaza 1 2 gm PO BID #0 cap 06/28/16 gm (*)] Polyethylene Glycol 3350 [Miralax 17 gm PO DAILY PRN #0 pkt 06/28/16 17 gm (*)] Sennosides/Docusate Sodium 1 tab PO BID PRN #0 tab 06/28/16 [Senokot-S] Tamsulosin HCl [Flomax 0.4 MG (*)] 0.4 mg PO HS #0 cap 06/28/16 amLODIPine BESYLATE [Norvasc 2.5 2.5 mg PO DAILY #0 tab 06/28/16 mg (*)] buPROPion XL [Wellbutrin 150mg XL] 150 mg PO DAILY #0 tab 06/28/16 carBAMazepine ER [TEGretol XR] 400 mg PO BID #0 tab 06/28/16 guanFACINE HCL [Guanfacine HCl 1 1 mg PO HS #0 tab 06/28/16 MG (*)] traZODone [traZODONE 50MG (*)] 50 mg PO HS #0 tab 06/28/16 Medical Decision Making ED Course/Re-evaluation: The patient was initially given a fluid bolus. Labs were checked and his hemoglobin has dropped 2 points from last month. He had no ongoing hematemesis. He was given a dose of Protonix as well as Zofran. Interestingly , his sodium returned at 114 and his chloride was also quite low. He is on chlorthalidone which could be the cause of his hyponatremia. Either way, this is quite low and will require inpatient hospitalization. I have discussed the case with the on-call physician for Dr. Velasquez, Dr. John and he will be admitted. Differential Diagnosis: This is a 75-year-old male from a alf with recent admission for confusion, history of bipolar disorder who presents with coffee-ground emesis according to his alf. Here, he is slightly hypertensive though with other normal vital signs. He is complaining of nausea. Differential diagnosis includes peptic ulcer disease, Radha-Trotter tear, gastroenteritis. - Data Points Laboratory Results: Laboratory Results 07/31/16 05:00 07/31/16 05:00 07/31/16 07/31/16 05:00 05:00 WBC 8.86 10^3/uL 10^3/uL (3.80-9.50) RBC 4.28 10^6/uL L 10^6/uL (4.40-6.38) Hgb 13.1 g/dL L g/dL (13.7-17.5) Hct 36.3 % L % (40.0-51.0) MCV 84.8 fL fL (81.5-99.8) MCH 30.6 pg pg (27.9-34.1) MCHC 36.1 g/dL g/dL (32.4-36.7) RDW 12.0 % % (11.5-15.2) Plt Count 254 10^3/uL 10^3/uL (150-400) MPV 9.4 fL fL (8.7-11.7) Neut % (Auto) 76.5 % H % (39.3-74.2) Lymph % (Auto) 11.4 % L % (15.0-45.0) Grady % (Auto) 10.4 % % (4.5-13.0) Eos % (Auto) 0.6 % % (0.6-7.6) Baso % (Auto) 0.2 % L % (0.3-1.7) Nucleat RBC Rel Count 0.0 % % (0.0-0.2) Absolute Neuts (auto) 6.78 10^3/uL H 10^3/uL (1.70-6.50) Absolute Lymphs (auto) 1.01 10^3/uL 10^3/uL (1.00-3.00) Absolute Monos (auto) 0.92 10^3/uL H 10^3/uL (0.30-0.80) Absolute Eos (auto) 0.05 10^3/uL 10^3/uL (0.03-0.40) Absolute Basos (auto) 0.02 10^3/uL 10^3/uL (0.02-0.10) Absolute Nucleated RBC 0.00 10^3/uL 10^3/uL (0-0.01) Immature Gran % 0.9 % % (0.0-1.1) Immature Gran # 0.08 10^3/uL 10^3/uL (0.00-0.10) Sodium 114 mEq/L L* mEq/L (134-144) Potassium 4.0 mEq/L mEq/L (3.5-5.2) Chloride 78 mEq/L L mEq/L (97-110) Carbon Dioxide 26 mEq/l mEq/l (22-31) Anion Gap 10 mEq/L mEq/L (8-16) BUN 30 mg/dL H mg/dL (7-23) Creatinine 0.6 mg/dL L mg/dL (0.7-1.3) Estimated GFR > 60 Glucose 169 mg/dL H mg/dL (70-100) Calcium 9.3 mg/dL mg/dL (8.5-10.4) Medications Given: Discontinued Medications Sodium Chloride (Ns) 1,000 mls @ 0 mls/hr IV ONCE ONE PRN Reason: Wide Open Stop: 07/31/16 05:42 Last Admin: 07/31/16 05:59 Dose: 1,000 mls Pantoprazole Sodium 80 mg/ (Sodium Chloride) 100 mls @ 200 mls/hr IV ONCE ONE Stop: 07/31/16 06:15 Last Admin: 07/31/16 06:30 Dose: 100 mls Ondansetron HCl (Zofran) 4 mg IVP EDNOW ONE Stop: 07/31/16 05:42 Last Admin: 07/31/16 05:59 Dose: 4 mg Departure - Departure Disposition: [facility] Inpatient Acute Clinical Impression: Coffee ground emesis, Hyponatremia, Hypochloremia Condition: Fair Referrals: Patient,NotPresent [Unknown] - As per Instructions
[2016-07-31 06:02] LABS: SODIUM 114 mEq/L (134-144)
[2016-07-31] MEDS ORDERED: ACETAMINOPHEN 325 MG TAB PO ONE (06:43)
[2016-07-31 09:32] LABS: ANION GAP 11 mEq/L (8-16); CARBON DIOXIDE 26 mEq/l (22-31); CHLORIDE 81 mEq/L (97-110); CREATININE 0.6 mg/dL (0.7-1.3); GLOMERULAR FILTRATION RATE > 60; GLUCOSE 148 mg/dL (70-100); POTASSIUM 4.2 mEq/L (3.5-5.2)
[2016-07-31 09:41] LABS: SODIUM 118 mEq/L (134-144)
[2016-07-31] MEDS ORDERED: LACTULOSE 20 GM/30 ML UDCUP PO PRN (09:47)
[2016-07-31] MEDS ORDERED: ONDANSETRON DISINTEGRATING 4 MG TAB PO PRN (09:47)
[2016-07-31] MEDS ORDERED: BISACODYL 10 MG SUPP PR PRN (09:47)
[2016-07-31] MEDS ORDERED: MAGNESIUM HYDROXIDE 30 ML UDCUP PO PRN (09:47)
[2016-07-31] MEDS ORDERED: POLYETHYLENE GLYCOL 3350 17 GM PKT PO PRN (09:47)
[2016-07-31] MEDS ORDERED: NS 1,000 ML IV SCH ×2 (10:00→18:00)
--- NOTE | 2016-07-31 10:15 | SOAPPROG ---
SOAP Progress Note Assessment/Plan: Assessment: 75 yo male admitted for ? episode of n/v with "coffee ground emesis" at [facility] this morning, who was found to have a sodium of 114 in ER, with mental status changes and confusion - who recently was admitted with confusion 06/21/16 w extensive w/u for unknown etiology at that time w/ some improvement and was d/ c to [facility] for further rehab. He reports he has had changes in his psych meds since being at [facility] but he is not sure what. He currently denies any n/v and does not recall feeling sick over the past day, no f/c. -possible hematemesis - h/h ok, on PPI IV, rec'd zofran, no further nausea and gi exam benign will follow closely -Hyponatremia - rechecked and 118 - will admit, place on gentle ivf w/ normal saline, suspect this has been dropping w/ his change in his meds for bipolar disorder and depression - he is on olanzapine and fluoxetine, in addition is on chlorthalidone. CXR checked in ER and pending. UA will be collected. Will look for any other contributing source to hyponatremia and worsening confusion. -bipolar disorder/ocd/depression - will confirm med changes and dosages - will change/ decrease appropriately and reassess sodium -htn - will cont on current meds except hold chlorthalidone, awaiting meds to be placed by pharmacy -hypothyroid - will check tsh, cont meds -chronic back/neck issues, s/p multiple surgeries - has been on cyclobenzaprine , tegretol, gabapentin in past, will get current med list from pharmacy and [facility] and assess. -h/o prostate ca and bph - on flomax -dispo - suspect will need >2MN for correction of Na and reasssessment of MS, monitoring for GIB. Plan: 07/31/16 10:01 07/31/16 10:16 Subjective: Denies any ongoing n/v, does not recall dark/discolored vomit, is more concerned w/ current state of mind, worsening confusion Objective: Vital Signs Temp Pulse Resp BP Pulse Ox 36.6 C 75 14 123/67 H 91 L 07/31/16 08:00 07/31/16 08:00 07/31/16 08:00 07/31/16 08:00 07/31/16 08:00 Laboratory Results 07/31/16 09:05 07/30/16 07/31/16 08/01/16 05:59 05:59 05:59 Intake Total 600 Balance 600 Gen: confused, uncomfortable, scratching head to think of answers, oriented to name, month, hospital, pcp "Dr. Velasquez", friend Arnel Ochoa who helps him. Heent: keeps pulling on nasal cannula and removing Neck: soft supple Chest: CTA B CV: RRR nl s1 s2 ABD: soft/nt/nd nl bs, does not have mid-epigastric discomfort MSK: chronic neck/back/hip discomfort/decrease rom Ext: c/d/i no edema - Pending Discharge Pending Discharge Within 24 Hours: No ICD10 Worksheet Patient Problems: Problems Problem Status Onset Spinal stenosis Acute OCD (obsessive compulsive disorder) Acute Anxiety Acute Hypertension Acute Syncope Acute Head injury Acute Scalp laceration Acute Expressive aphasia Acute Confusion Acute TIA (transient ischemic attack) Acute Coffee ground emesis Acute Hyponatremia Acute Hypochloremia Acute
[2016-07-31 11:25] LABS: COLOR PALE YELLOW; LEUKOCYTE ESTERASE,URINE NEGATIVE (NEGATIVE); NITRITE,URINE NEGATIVE (NEGATIVE)
--- NOTE | 2016-07-31 11:29 | GHP ---
[f rep st] HISTORY AND PHYSICAL DATE OF ADMISSION: 07/31/2016 CHIEF COMPLAINT: Sent by ambulance from [facility] for possible GI bleed. HISTORY OF PRESENT ILLNESS: A 75-year-old male who was sent over from [facility], where he is currently staying after a recent admission for confusion, with full workup and no real etiology determined. He was sent to [facility] for further rehabilitation, assessment of medications, control of his severe depression, OCD, and bipolar disorder. He reports they have been doing some changes to his medications while he was there, and he has been becoming more and more confused. Then this morning, per nursing at [facility], he had nausea and vomiting with possible coffee-ground discolored emesis. He was sent by ambulance to the ER. He cannot give much further detail on this and denies any current nausea. No further nausea or vomiting since he has been at the hospital , but interestingly, in the ER, he was found to have a sodium of 114, and given his possible coffee-ground emesis and his severe hyponatremia, decision was made to admit him. In the ER, he did receive IV PPI and Zofran and did get 1 liter of normal saline. His sodium was rechecked to confirm and returned at 118. PAST MEDICAL HISTORY: Significant for depression, obsessive-compulsive disorder , bipolar disorder, coronary artery disease by positive calcium score, confusion and memory loss, hypertension, history of prostate cancer, cervicalgia , chronic back pain, hypothyroidism, lumbar spinal stenosis, osteoporosis, osteoarthritis, chronic edema. PAST SURGICAL HISTORY: Anterior cervical surgery, 2010; posterior cervical surgery, 2010; tonsillectomy; radical prostatectomy, 1991; hernia surgery x2. SOCIAL HISTORY: He was twice and twice. He is a nonsmoker. Does not consume alcohol. Was a former smoker. FAMILY HISTORY: Dad with a history of prostate cancer, hypertension. Mom at 90. Sister with knee issues, brother with prostate cancer, and additional sister. MEDICATIONS: We are getting a current list from [facility] with the help of pharmacy. Prior to [facility], he was on MiraLAX, Tylenol p.r.n., lorazepam 0.25 q.h.s., melatonin 3 mg at bedtime, senna and Colace p.r.n., irbesartan 150 mg daily, tamsulosin 0.4 mg q.h.s., aspirin 81 mg daily, chlorthalidone 25 mg q.a.m., Voltaren gel as needed twice a day topically, gabapentin 100 mg q.h.s., Lovaza 2 capsules twice a day, Tegretol XR 200 mg twice a day, olanzapine 2.5 mg b.i.d., Synthroid 112 mcg daily, amlodipine 2.5 daily, Lipitor 20 mg daily, fluoxetine 20 mg capsule 4 capsules by mouth once a day, cyclobenzaprine 10 mg q.h.s. ALLERGIES: Include lisinopril, which is a cough. REVIEW OF SYSTEMS: Quite limited due to his acute confusion and inability to describe much, but he tells me he has not felt acutely ill. Denies fevers or chills. Does not recall having nausea earlier today. HEENT: Denies anything acutely. CARDIOVASCULAR: Denies chest pain, palpitations. RESPIRATORY: Denies shortness of breath or recent cough. ABDOMEN: Denies discomfort or current nausea. NEUROLOGIC: Reports increasing confusion, which has been an ongoing issue for several months, acutely worsened over the last couple of weeks. PSYCHIATRIC: He admits to severe depression and a feeling of sadness. Has known OCD, depression, bipolar disorder. PHYSICAL EXAMINATION: VITALS: Blood pressure 123/67, heart rate 75, respiratory rate 14, 93 on room air, afebrile at 37.7. GENERAL: He is a little bit restless, scratching his head to try to recall things. Bothered by his lack of memory. HEENT: Pupils are equal, round, reactive. EOMI. Mouth: He has somewhat dry mucous membranes. NECK: Soft and supple. RESPIRATORY: Clear to auscultation bilaterally. Slightly decreased breath sounds. CARDIOVASCULAR: Regular rate and rhythm. GI: ABDOMEN: Soft, nontender. No mid-epigastric discomfort at this time. Normal bowel sounds. No hepatosplenomegaly appreciated. NEUROLOGIC: Obvious confusion, which is bothering him. He is oriented to name, location, his good friend, his physician , knows many things like this, but unable to give acute history, nor recall medication changes over the past few weeks. SKIN: Warm and dry, somewhat retracted. MUSCULOSKELETAL: Has some decreased range of movement in the neck, back. Hips with osteoarthritis, prior surgeries. He does not complain of anything bothering him. EXTREMITIES: Clean, dry, intact. No significant edema. PSYCHIATRIC: He is somewhat uncomfortable, as discussed above. ASSESSMENT/PLAN: A 75-year-old male admitted with confusion, hyponatremia, possible coffee-ground emesis, with increasing confusion over the last several months, more acutely in the last couple weeks while he was at [facility], and he does know they have been adjusting his medications somewhat to try to help with his severe depression, obsessive-compulsive disorder, which certainly could be contributing to his hyponatremia. Plan by problem: 1. Possible gastrointestinal bleed. Will place on Protonix. Monitor. Offer antiemetics. If hemoglobin and hematocrit stable, will reassess. If any further episodes of this or worsening or destabilization, will consult GI. Currently, no concerning issues on this. He is on a daily aspirin, but no other blood thinners. Will hold the aspirin today as well. 2. Hyponatremia. Certainly contributing to his confusion. Chest x-ray negative. UA is pending. Holding his psychiatric meds, trying to get accurate list from [facility] with help of pharmacy to adjust and see which medications have changed over the past couple weeks. Will place on gentle IV fluids with normal saline at 75 cc and follow sodium carefully. Do not want to correct too rapidly. He has surprisingly good mentation for this level, which makes me suspicious on the chronicity. 3. Hypertension. Will get his current medications for treatment of this. Will hold his chlorthalidone. He was on amlodipine and irbesartan. Will confirm and start on these again. 4. Hypothyroid. Will check his TSH. Continue his Synthroid supplementation. 5. Coronary atherosclerosis. Will continue his statin and fish oil, holding his baby aspirin today acutely, with the question of possible gastrointestinal bleed. 6. Cervicalgia, chronic pain. Again, will get medications sent from [facility]. With help of pharmacy, reassess these, and anything contributing to hyponatremia will be very cautious with and adjust appropriately. DISPOSITION: Suspect patient will need greater than 2 midnights inpatient assessment for his treatment and correction of his hyponatremia, adjustment of his psychiatric medications and close monitoring for possible upper GI bleed, with multiple comorbidities. /[id number]/MODL MTDD
[2016-07-31 11:41] LABS: MUCUS TRACE /lpf (NONE-1+)
[2016-07-31 11:44] LABS: WBC,URINE NONE SEEN /hpf (0-3)
[2016-07-31] MEDS: ONDANSETRON 4 MG/2 ML VIAL IVP PRN ×2 (12:07→19:45)
[2016-07-31] MEDS: ACETAMINOPHEN 325 MG TAB PO PRN (12:07)
[2016-07-31] MEDS ORDERED: ALBUTEROL 60 PUFFS/8 GM MDI IH PRN (12:29)
[2016-07-31] MEDS ORDERED: NON-FORMULARY NEW DRUG (Diclofenac Sodium [Voltaren Gel (*)] 1 APP) TP PRN (12:29)
[2016-07-31] MEDS ORDERED: LOSARTAN POTASSIUM 50 MG TAB PO SCH (12:30)
[2016-07-31 17:04] LABS: ANION GAP 11 mEq/L (8-16); CALCIUM 9.1 mg/dL (8.5-10.4); CARBON DIOXIDE 24 mEq/l (22-31); CHLORIDE 81 mEq/L (97-110); CREATININE 0.6 mg/dL (0.7-1.3); GLOMERULAR FILTRATION RATE > 60; GLUCOSE 144 mg/dL (70-100)
[2016-07-31 17:41] LABS: SODIUM 116 mEq/L (134-144)
[2016-07-31] MEDS ORDERED: PSYLLIUM HUSK PO SCH (18:00)
[2016-07-31] MEDS ORDERED: ASPARTAME PO SCH (18:00)
[2016-07-31] MEDS ORDERED: NS 250 ML IV ONE (18:00)
[2016-07-31] MEDS: PSYLLIUM METAMUCIL 1 PKT PO SCH (18:03)
[2016-07-31] MEDS: SENNOSIDES/DOCUSATE SODIUM TAB PO SCH (20:06)
[2016-07-31] MEDS: GABAPENTIN 100 MG CAP PO SCH (20:06)
[2016-07-31] MEDS: carBAMazepine ER 400 MG TAB PO SCH (20:06)
[2016-07-31] MEDS: guanFACINE HCL 1 MG TAB PO SCH (20:06)
[2016-07-31] MEDS: OLANZapine 2.5 MG TAB PO SCH (20:07)
[2016-07-31] MEDS: ATORVASTATIN CALCIUM 20 MG TAB PO SCH (20:07)
[2016-07-31] MEDS: traZODone 50 MG TAB PO SCH (20:08)
[2016-07-31] MEDS: CYCLOBENZAPRINE 10 MG TAB PO SCH (20:08)
[2016-07-31] MEDS: LORazepam 0.5 MG TAB PO PRN (20:08)
[2016-07-31] MEDS: TAMSULOSIN HCL 0.4 MG CAP PO SCH (20:09)
[2016-07-31] MEDS: NS 1,000 ML IV SCH (20:14)
[2016-07-31] MEDS: OMEGA-3 ETHYL EST-LOVAZA 1 GM CAP PO SCH (20:21)
[2016-07-31] MEDS ORDERED: LOSARTAN POTASSIUM 50 MG TAB PO ONE (21:00)
[2016-07-31] MEDS: FLUTICASONE/SALMETER 250/50MCG DISKUS IH SCH (21:12)
[2016-07-31] MEDS ORDERED: FUROSEMIDE 20 MG TAB PO ONE (21:48)
[2016-07-31] MEDS ORDERED: NS 500 ML IV ONE (21:49)
[2016-07-31] MEDS: PANTOPRAZOLE SODIUM 40 MG in NS 100 ML IV SCH (22:21)
[2016-08-01] MEDS: NS 1,000 ML IV SCH ×4 (00:34→16:47)
[2016-08-01 05:24] LABS: % IMMATURE GRANULYOCYTES 0.6 % (0.0-1.1); ABSOLUTE IMMATURE GRANULOCYTES 0.04 10^3/uL (0.00-0.10); ADD DIFF? NO; ADD MORPH? NO; ADD SCAN? NO; ATYPICAL LYMPHOCYTE FLAG 0 (0-99); FRAGMENT RBC FLAG 0 (0-99); HEMATOCRIT 31.3 % (40.0-51.0); HEMOGLOBIN 11.2 g/dL (13.7-17.5); LEFT SHIFT FLG 0 (0-99); LIPEMIA HEMOLYSIS FLAG 90 (0-99); MEAN CELL HEMOGLOBIN 31.1 pg (27.9-34.1); MEAN CELL HEMOGLOBIN CONCENTR. 35.8 g/dL (32.4-36.7); MEAN CELL VOLUME 86.9 fL (81.5-99.8); MEAN PLATELET VOLUME 9.4 fL (8.7-11.7); PLATELET CLUMPS FLAG 0 (0-99); PLATELET COUNT 206 10^3/uL (150-400)
[2016-08-01 05:39] LABS: ANION GAP 7 mEq/L (8-16); CALCIUM 8.4 mg/dL (8.5-10.4); CARBON DIOXIDE 25 mEq/l (22-31); CHLORIDE 89 mEq/L (97-110); CREATININE 0.6 mg/dL (0.7-1.3); GLOMERULAR FILTRATION RATE > 60; GLUCOSE 120 mg/dL (70-100); POTASSIUM 3.6 mEq/L (3.5-5.2); SODIUM 121 mEq/L (134-144)
[2016-08-01] MEDS: LEVOTHYROXINE 112 MCG TAB PO SCH (07:11)
--- NOTE | 2016-08-01 07:16 | SOAPPROG ---
SOAP Progress Note Assessment/Plan: Assessment: 75 yo male admitted for ? episode of n/v with "coffee ground emesis" at [facility] this morning, who was found to have a sodium of 114 in ER, with mental status changes and confusion - who recently was admitted with confusion 06/21/16 w extensive w/u for unknown etiology at that time w/ some improvement and was d/ c to [facility] for further rehab. He reports he has had changes in his psych meds since being at [facility] but he is not sure what. He currently denies any n/v and does not recall feeling sick over the past day, no f/c. -possible hematemesis - h/h ok, on PPI IV, rec'd zofran, no further nausea and gi exam benign will follow closely -Hyponatremia - rechecked and 118 - will admit, place on gentle ivf w/ normal saline, suspect this has been dropping w/ his change in his meds for bipolar disorder and depression - he is on olanzapine and fluoxetine, in addition is on chlorthalidone. CXR checked in ER and pending. UA will be collected. Will look for any other contributing source to hyponatremia and worsening confusion. -bipolar disorder/ocd/depression - will confirm med changes and dosages - will change/ decrease appropriately and reassess sodium -htn - will cont on current meds except hold chlorthalidone, awaiting meds to be placed by pharmacy -hypothyroid - will check tsh, cont meds -chronic back/neck issues, s/p multiple surgeries - has been on cyclobenzaprine , tegretol, gabapentin in past, will get current med list from pharmacy and [facility] and assess. -h/o prostate ca and bph - on flomax -dispo - suspect will need >2MN for correction of Na and reasssessment of MS, monitoring for GIB. Plan: 07/31/16 10:01 08/01/16 07:12 75 yo male w/ hyponatremia and possible n/v w/ hematemesis at [facility] -hyponatremia - is on multiple psychoactive medications and chronic medications to help w/ ongoing cervicalgia/back pain - have held his fluoxetine for now ( was down to 20 mg from 80 but some confusion at [facility] w/ possible increase again in this, decreased olanzapine from 2.5 bid to 1.75, holding prn bdz's, concern with making too many rapid changes to destabilize mood (ocd/depression/bipolar) . Is on tegretol, wellbutrin, trazodone, cyclobenzaprine in addition. Will look at decreasing these if sodium continues to be difficult to address. Has responded to NaCl and in addition had to give lasix x1 last night. Overall volume down, will cont w/ fluids and recheck sodium again later today. He has had discomfort from constipation which is being treated aggressively so that he will increase po intake and have less discomfort which contributes to hyponatremia as well. TSH and CXR ok. Holding chlorthalidone. -nausea - has mostly resolved - had mild nausea w/ taking meds yesterday, no further discolored emesis, nausea may be 2/2 hyponatremia. Cont ppi. However, his h/h is lower than baseline (may in part be from ivf), will check for blood w / stool, follow h/h if continues to decrease will consult GI -ocd/depression - see above -htn - increased losartan, holding chlorthalidone, cont amlodipine -constipation - still w/o bowel movement but treating aggressively to start this up. 08/01/16 07:26 08/01/16 09:31 Subjective: Feeling better, calmer, less confusion Objective: Vital Signs Temp Pulse Resp BP Pulse Ox 36.4 C 63 18 137/83 H 95 08/01/16 03:54 08/01/16 03:54 08/01/16 03:54 08/01/16 03:54 08/01/16 03:54 Laboratory Results 08/01/16 04:18 08/01/16 04:18 07/31/16 08/01/16 08/02/16 05:59 05:59 05:59 Intake Total 2848 878 Output Total 1975 600 Balance 873 278 Gen: more alert, less confused, less agitated Heent: perr, eomi Neck: soft/supple Chest: cta b CV: rrr ABd: soft mildly distended but non-tender, nl bs Ext: c/d/i ICD10 Worksheet Patient Problems: Problems Problem Status Onset Coffee ground emesis Acute Hypochloremia Acute Hyponatremia Acute Anxiety Acute Confusion Acute Expressive aphasia Acute Head injury Acute Hypertension Acute OCD (obsessive compulsive disorder) Acute Scalp laceration Acute Spinal stenosis Acute Syncope Acute TIA (transient ischemic attack) Acute
[2016-08-01] MEDS ORDERED: NS 500 ML IV ONE (09:33)
[2016-08-01] MEDS: FLUTICASONE/SALMETER 250/50MCG DISKUS IH SCH ×2 (09:33→19:52)
[2016-08-01] MEDS: OMEGA-3 ETHYL EST-LOVAZA 1 GM CAP PO SCH ×2 (09:41→19:47)
[2016-08-01] MEDS: PANTOPRAZOLE SODIUM 40 MG in NS 100 ML IV SCH ×2 (09:41→19:58)
[2016-08-01] MEDS: SENNOSIDES/DOCUSATE SODIUM TAB PO SCH ×2 (09:41→19:45)
[2016-08-01] MEDS: PSYLLIUM METAMUCIL 1 PKT PO SCH ×3 (09:41→19:46)
[2016-08-01] MEDS: OLANZapine 2.5 MG TAB PO SCH ×2 (09:42→19:50)
[2016-08-01] MEDS: MAGNESIUM OXIDE 400 MG TAB PO SCH (09:42)
[2016-08-01] MEDS: carBAMazepine ER 400 MG TAB PO SCH ×2 (09:42→19:47)
[2016-08-01] MEDS: LOSARTAN POTASSIUM 50 MG TAB PO SCH (09:42)
[2016-08-01] MEDS: buPROPion XL 150 MG TAB PO SCH (09:54)
[2016-08-01] MEDS: TAMSULOSIN HCL 0.4 MG CAP PO SCH (19:44)
[2016-08-01] MEDS: guanFACINE HCL 1 MG TAB PO SCH (19:48)
[2016-08-01] MEDS: CYCLOBENZAPRINE 10 MG TAB PO SCH (19:48)
[2016-08-01] MEDS: ATORVASTATIN CALCIUM 20 MG TAB PO SCH (19:49)
[2016-08-01] MEDS: MELATONIN 3 MG TAB PO PRN (19:49)
[2016-08-01] MEDS: traZODone 50 MG TAB PO SCH (19:49)
[2016-08-01] MEDS: GABAPENTIN 100 MG CAP PO SCH (19:50)
[2016-08-02] MEDS: NS 1,000 ML IV SCH ×2 (03:58→17:14)
[2016-08-02] MEDS: ACETAMINOPHEN 325 MG TAB PO PRN (04:00)
[2016-08-02 05:28] LABS: HEMATOCRIT 30.8 % (40.0-51.0); HEMOGLOBIN 10.6 g/dL (13.7-17.5); MEAN CELL HEMOGLOBIN 31.1 pg (27.9-34.1); MEAN CELL HEMOGLOBIN CONCENTR. 34.4 g/dL (32.4-36.7); MEAN CELL VOLUME 90.3 fL (81.5-99.8); RED BLOOD CELL COUNT 3.41 10^6/uL (4.40-6.38); RED CELL DISTRIBUTION WIDTH 12.5 % (11.5-15.2)
[2016-08-02 05:47] LABS: ANION GAP 8 mEq/L (8-16); CALCIUM 8.6 mg/dL (8.5-10.4); CARBON DIOXIDE 23 mEq/l (22-31); CHLORIDE 102 mEq/L (97-110); CREATININE 0.6 mg/dL (0.7-1.3); GLOMERULAR FILTRATION RATE > 60; GLUCOSE 124 mg/dL (70-100); POTASSIUM 3.7 mEq/L (3.5-5.2); SODIUM 133 mEq/L (134-144)
[2016-08-02] MEDS: LEVOTHYROXINE 112 MCG TAB PO SCH (06:27)
[2016-08-02] MEDS: FLUTICASONE/SALMETER 250/50MCG DISKUS IH SCH ×2 (09:02→22:16)
[2016-08-02] MEDS: OMEGA-3 ETHYL EST-LOVAZA 1 GM CAP PO SCH ×2 (09:10→22:24)
[2016-08-02] MEDS: LOSARTAN POTASSIUM 50 MG TAB PO SCH (09:11)
[2016-08-02] MEDS: PSYLLIUM METAMUCIL 1 PKT PO SCH ×3 (09:11→18:26)
[2016-08-02] MEDS: buPROPion XL 150 MG TAB PO SCH (09:12)
[2016-08-02] MEDS: OLANZapine 2.5 MG TAB PO SCH ×2 (09:12→20:55)
[2016-08-02] MEDS: carBAMazepine ER 400 MG TAB PO SCH ×2 (09:12→20:55)
[2016-08-02] MEDS: MAGNESIUM OXIDE 400 MG TAB PO SCH (09:12)
[2016-08-02] MEDS: SENNOSIDES/DOCUSATE SODIUM TAB PO SCH ×2 (09:13→22:24)
[2016-08-02] MEDS: PANTOPRAZOLE SODIUM 40 MG in NS 100 ML IV SCH ×2 (09:13→22:36)
--- NOTE | 2016-08-02 20:08 | SOAPPROG ---
SOAP Progress Note Assessment/Plan: Assessment:Hyponatremia, resolving. BIpolar depression, OCD, doing better at this time. Plan:Continue with PT and OT. Follow Na+. Home with 24 hour care when stable. 08/02/16 20:07 Subjective: No complaints. He wants to be discharged to home and he will cover around the clock assistance. He is having some difficulty with ambulating however it is improved. Objective: Vital Signs Temp Pulse Resp BP Pulse Ox 37.3 C 73 14 133/66 H 93 08/02/16 16:00 08/02/16 16:00 08/02/16 16:00 08/02/16 16:00 08/02/16 16:00 Laboratory Results 08/02/16 05:14 08/02/16 05:14 08/01/16 08/02/16 08/03/16 05:59 05:59 05:59 Intake Total 2848 3511 900 Output Total 1975 2750 1075 Balance 873 761 -175 Lungs clear to asc. COR rrr. no significant edema. Alert and appropriate. Demonstrating no signs of depression. He isw concerned about his need for quality slee0p at night. did well with trazodone last night. ICD10 Worksheet Patient Problems: Problems Problem Status Onset Coffee ground emesis Acute Hypochloremia Acute Hyponatremia Acute Anxiety Acute Confusion Acute Expressive aphasia Acute Head injury Acute Hypertension Acute OCD (obsessive compulsive disorder) Acute Scalp laceration Acute Spinal stenosis Acute Syncope Acute TIA (transient ischemic attack) Acute
[2016-08-02] MEDS: traZODone 50 MG TAB PO SCH (20:54)
[2016-08-02] MEDS: guanFACINE HCL 1 MG TAB PO SCH (20:55)
[2016-08-02] MEDS: GABAPENTIN 100 MG CAP PO SCH (20:55)
[2016-08-02] MEDS: CYCLOBENZAPRINE 10 MG TAB PO SCH (20:55)
[2016-08-02] MEDS: TAMSULOSIN HCL 0.4 MG CAP PO SCH (22:25)
[2016-08-02] MEDS: ATORVASTATIN CALCIUM 20 MG TAB PO SCH (22:25)
[2016-08-03 05:24] LABS: HEMATOCRIT 31.9 % (40.0-51.0); HEMOGLOBIN 11.1 g/dL (13.7-17.5); MEAN CELL HEMOGLOBIN 31.5 pg (27.9-34.1); MEAN CELL HEMOGLOBIN CONCENTR. 34.8 g/dL (32.4-36.7); MEAN CELL VOLUME 90.6 fL (81.5-99.8); RED BLOOD CELL COUNT 3.52 10^6/uL (4.40-6.38); RED CELL DISTRIBUTION WIDTH 12.7 % (11.5-15.2)
[2016-08-03 05:27] LABS: ALANINE AMINOTRANSFERASE 45 IU/L (21-72); ALBUMIN 3.3 g/dL (3.5-5.0); ALKALINE PHOSPHATASE 61 IU/L (38-126); ANION GAP 9 mEq/L (8-16); ASPARTATE AMINOTRANSFERASE 29 IU/L (17-59); BILIRUBIN,TOTAL 0.4 mg/dL (0.1-1.4); CALCIUM 8.7 mg/dL (8.5-10.4); CARBON DIOXIDE 25 mEq/l (22-31); CHLORIDE 103 mEq/L (97-110); CREATININE 0.6 mg/dL (0.7-1.3); GLOMERULAR FILTRATION RATE > 60; GLUCOSE 102 mg/dL (70-100); POTASSIUM 3.5 mEq/L (3.5-5.2); SODIUM 137 mEq/L (134-144); TOTAL PROTEIN 5.7 g/dL (6.3-8.2)
[2016-08-03] MEDS: LEVOTHYROXINE 112 MCG TAB PO SCH (05:39)
[2016-08-03] MEDS: MAGNESIUM OXIDE 400 MG TAB PO SCH (08:56)
[2016-08-03] MEDS: buPROPion XL 150 MG TAB PO SCH (08:56)
[2016-08-03] MEDS: PSYLLIUM METAMUCIL 1 PKT PO SCH ×3 (08:56→18:00)
[2016-08-03] MEDS: OLANZapine 2.5 MG TAB PO SCH ×2 (08:56→20:49)
[2016-08-03] MEDS: LOSARTAN POTASSIUM 50 MG TAB PO SCH (08:57)
[2016-08-03] MEDS: SENNOSIDES/DOCUSATE SODIUM TAB PO SCH ×2 (08:57→20:50)
[2016-08-03] MEDS: carBAMazepine ER 400 MG TAB PO SCH ×2 (08:57→20:49)
[2016-08-03] MEDS: OMEGA-3 ETHYL EST-LOVAZA 1 GM CAP PO SCH ×2 (08:57→20:49)
[2016-08-03] MEDS: FLUTICASONE/SALMETER 250/50MCG DISKUS IH SCH ×2 (08:59→21:38)
--- NOTE | 2016-08-03 10:01 | PDIAF ---
- Diagnosis Diagnosis: hyponatremia Code Status: Full Code - Medication Management Discharge Medications: Medications to Continue on Transfer Fluticasone/Salmeter 250/50Mcg [Advair 250/50 (*)] 1 puffs IH BID #0 disk [Last Taken 06/20/16 21:00] Diclofenac Sodium [Voltaren Gel (*)] 1 eugene TP BID PRN 06/21/16 [Last Taken Unknown] Acetaminophen [Tylenol 325mg (*)] 325 mg PO Q6 PRN #0 tab 06/28/16 [Last Taken Unknown] Albuterol [Proventil Inhaler HFA (*)] 2 puffs IH Q4H PRN #0 mdi 06/28/16 [Last Taken Unknown] Aspirin [Aspirin 81mg (*)] 81 mg PO DAILY #0 tab.chew 06/28/16 [Last Taken Unknown] Atorvastatin Calcium [Lipitor 20 mg (*)] 20 mg PO HS #0 tab 06/28/16 [Last Taken Unknown] Chlorthalidone [Chlorthalidone 25 mg (*)] 25 mg PO DAILY #0 tab 06/28/16 [Last Taken Unknown] Cyclobenzaprine [Flexeril 10 MG (*)] 10 mg PO HS #0 tab 06/28/16 [Last Taken Unknown] Docusate Sodium [Colace 100 MG (*)] 100 mg PO BID PRN #0 cap 06/28/16 [Last Taken Unknown] FLUoxetine [Prozac 20 MG (*)] 20 mg PO DAILY #0 cap 06/28/16 [Last Taken Unknown ] Gabapentin [Neurontin 100 MG (*)] 100 mg PO HS #0 cap 06/28/16 [Last Taken Unknown] Ibuprofen [Motrin (*)] 400 mg PO Q6HRS PRN #0 tab 06/28/16 [Last Taken Unknown] Levothyroxine [Synthroid 112 mcg (*)] 112 mcg PO DAILY@06 #0 tab 06/28/16 [Last Taken Unknown] Magnesium Oxide [Magnesium Oxide 400 mg (*)] 400 mg PO DAILY #0 tab 06/28/16 [ Last Taken Unknown] Melatonin [Melatonin 3 MG (*)] 3 mg PO HS PRN #0 tab 06/28/16 [Last Taken Unknown] OLANZapine [ZyPREXA 2.5 mg (*)] 2.5 mg PO BID #0 tab 01/16/17 [Last Taken Unknown] Polyethylene Glycol 3350 [Miralax 17 gm (*)] 17 gm PO DAILY PRN #0 pkt 06/28/16 [Last Taken Unknown] Sennosides/Docusate Sodium [Senokot-S] 1 tab PO BID PRN #0 tab 06/28/16 [Last Taken Unknown] Tamsulosin HCl [Flomax 0.4 MG (*)] 0.4 mg PO HS #0 cap 06/28/16 [Last Taken Unknown] amLODIPine BESYLATE [Norvasc 2.5 mg (*)] 2.5 mg PO DAILY #0 tab 06/28/16 [Last Taken Unknown] buPROPion XL [Wellbutrin 150mg XL] 150 mg PO DAILY #0 tab 06/28/16 [Last Taken Unknown] carBAMazepine ER [TEGretol XR] 400 mg PO BID #0 tab 06/28/16 [Last Taken Unknown ] guanFACINE HCL [Guanfacine HCl 1 MG (*)] 1 mg PO HS #0 tab 06/28/16 [Last Taken Unknown] traZODone [traZODONE 50MG (*)] 50 mg PO HS #0 tab 06/28/16 [Last Taken Unknown] LORazepam [Ativan (*)] 0.25 mg PO HS PRN 07/31/16 [Last Taken Unknown] Losartan Potassium [Cozaar 50 mg (*)] 50 mg PO DAILY 07/31/16 [Last Taken Unknown] [place]-3 Ethyl Est-Lovaza [Lovaza 1 gm (*)] 2 gm PO BID 07/31/16 [Last Taken Unknown] Psyllium Husk/Aspartame [Metamucil Fiber Singles Packet] 2 tbs PO TIDMEAL [Last Taken Unknown] Discharge Medications: Refer to the Discharge Home Medication list for PRN reason. - Orders Services needed: Physical Therapy, Occupational Therapy Diet Recommendation: no restrictions on diet - Follow Up Care Current Providers and Referrals: Patient,NotPresent [Unknown] - As per Instructions Vahe Velasquez MD [Primary Care Provider] -
[2016-08-03] MEDS: PANTOPRAZOLE SODIUM 40 MG in NS 100 ML IV SCH (10:15)
[2016-08-03] MEDS: PANTOPRAZOLE SODIUM 40 MG TAB PO SCH (10:36)
--- NOTE | 2016-08-03 13:40 | SOAPPROG ---
SOAP Progress Note Assessment/Plan: Assessment: 75 yo male admitted for ? episode of n/v with "coffee ground emesis" at [facility] this morning, who was found to have a sodium of 114 in ER, with mental status changes and confusion - who recently was admitted with confusion 06/21/16 w extensive w/u for unknown etiology at that time w/ some improvement and was d/ c to [facility] for further rehab. He reports he has had changes in his psych meds since being at [facility] but he is not sure what. He currently denies any n/v and does not recall feeling sick over the past day, no f/c. -possible hematemesis - h/h ok, on PPI IV, rec'd zofran, no further nausea and gi exam benign will follow closely -Hyponatremia - rechecked and 118 - will admit, place on gentle ivf w/ normal saline, suspect this has been dropping w/ his change in his meds for bipolar disorder and depression - he is on olanzapine and fluoxetine, in addition is on chlorthalidone. CXR checked in ER and pending. UA will be collected. Will look for any other contributing source to hyponatremia and worsening confusion. -bipolar disorder/ocd/depression - will confirm med changes and dosages - will change/ decrease appropriately and reassess sodium -htn - will cont on current meds except hold chlorthalidone, awaiting meds to be placed by pharmacy -hypothyroid - will check tsh, cont meds -chronic back/neck issues, s/p multiple surgeries - has been on cyclobenzaprine , tegretol, gabapentin in past, will get current med list from pharmacy and [facility] and assess. -h/o prostate ca and bph - on flomax -dispo - suspect will need >2MN for correction of Na and reasssessment of MS, monitoring for GIB. Plan: 07/31/16 10:01 08/01/16 07:12 75 yo male w/ hyponatremia and possible n/v w/ hematemesis at [facility] -hyponatremia - is on multiple psychoactive medications and chronic medications to help w/ ongoing cervicalgia/back pain - have held his fluoxetine for now ( was down to 20 mg from 80 but some confusion at [facility] w/ possible increase again in this, decreased olanzapine from 2.5 bid to 1.75, holding prn bdz's, concern with making too many rapid changes to destabilize mood (ocd/depression/bipolar) . Is on tegretol, wellbutrin, trazodone, cyclobenzaprine in addition. Will look at decreasing these if sodium continues to be difficult to address. Has responded to NaCl and in addition had to give lasix x1 last night. Overall volume down, will cont w/ fluids and recheck sodium again later today. He has had discomfort from constipation which is being treated aggressively so that he will increase po intake and have less discomfort which contributes to hyponatremia as well. TSH and CXR ok. Holding chlorthalidone. -nausea - has mostly resolved - had mild nausea w/ taking meds yesterday, no further discolored emesis, nausea may be 2/2 hyponatremia. Cont ppi. However, his h/h is lower than baseline (may in part be from ivf), will check for blood w / stool, follow h/h if continues to decrease will consult GI -ocd/depression - see above -htn - increased losartan, holding chlorthalidone, cont amlodipine -constipation - still w/o bowel movement but treating aggressively to start this up. 08/01/16 07:26 08/01/16 09:31 08/03/16 13:36 75 yo male admitted w/ profound hypoNa, confusion, n/v -hyponatremia - now resolved, would like to see if he can hold his sodium without IVF w the meds he has had changed (d/c chlorthalidone, decreased olanzapine, d/c fluoxetine), will check bmp in am. -c/o weakness this am - cont w/ pt/ot, will need pt/ot on d/c, "feel faint" this am in bathroom -nausea- resolved -confusion - resolved -dispo - needs to have [facility] lined up for 24/7 care plus pt/ot/hh to succeed at home, if not able to have this her really will need SNF until stronger. Was considering d/c this am but it turns out [facility] not fully arranged yet and given Charly's ongoing weakness this am, just d/c IVF, will keep overnight to reassess sodium and have safe d/c plans. Subjective: "I can think clearly", "felt faint in bathroom" Objective: Vital Signs Temp Pulse Resp BP Pulse Ox 36.8 C 70 16 177/76 H 94 08/03/16 12:00 08/03/16 12:00 08/03/16 12:00 08/03/16 12:00 08/03/16 12:00 Laboratory Results 08/03/16 05:10 08/03/16 05:10 08/02/16 08/03/16 08/04/16 05:59 05:59 05:59 Intake Total 3511 1050 Output Total 2750 1075 Balance 761 -25 Gen: a&o, better spirits Neck: soft/supple Chest: cta b CV: rr nl s1 s2 Abd: soft nt nd Ext: no edema - Pending Discharge Pending Discharge Within 24 Hours: Yes Pending Discharge Date: 08/04/16 Pending Discharge Time: 11:00 ICD10 Worksheet Patient Problems: Problems Problem Status Onset Spinal stenosis Acute OCD (obsessive compulsive disorder) Acute Anxiety Acute Hypertension Acute Syncope Acute Head injury Acute Scalp laceration Acute Expressive aphasia Acute Confusion Acute TIA (transient ischemic attack) Acute Coffee ground emesis Acute Hyponatremia Acute Hypochloremia Acute
[2016-08-03] MEDS: GABAPENTIN 100 MG CAP PO SCH (20:49)
[2016-08-03] MEDS: TAMSULOSIN HCL 0.4 MG CAP PO SCH (20:49)
[2016-08-03] MEDS: traZODone 50 MG TAB PO SCH (20:49)
[2016-08-03] MEDS: guanFACINE HCL 1 MG TAB PO SCH (20:49)
[2016-08-03] MEDS: CYCLOBENZAPRINE 10 MG TAB PO SCH (20:50)
[2016-08-03] MEDS: ATORVASTATIN CALCIUM 20 MG TAB PO SCH (20:50)
[2016-08-03] MEDS: LORazepam 0.5 MG TAB PO PRN (22:45)
[2016-08-03] MEDS: MELATONIN 3 MG TAB PO PRN (22:45)
[2016-08-04 05:15] VITALS: BP 109/67
[2016-08-04 05:53] LABS: ANION GAP 7 mEq/L (8-16); CARBON DIOXIDE 28 mEq/l (22-31); CHLORIDE 99 mEq/L (97-110); CREATININE 0.6 mg/dL (0.7-1.3); GLOMERULAR FILTRATION RATE > 60; GLUCOSE 121 mg/dL (70-100); POTASSIUM 3.7 mEq/L (3.5-5.2); SODIUM 134 mEq/L (134-144)
[2016-08-04] MEDS: LEVOTHYROXINE 112 MCG TAB PO SCH (06:15)
[2016-08-04] MEDS: OMEGA-3 ETHYL EST-LOVAZA 1 GM CAP PO SCH (07:57)
[2016-08-04] MEDS: MAGNESIUM OXIDE 400 MG TAB PO SCH (07:58)
[2016-08-04] MEDS: LOSARTAN POTASSIUM 50 MG TAB PO SCH (07:58)
[2016-08-04] MEDS: OLANZapine 2.5 MG TAB PO SCH (07:59)
[2016-08-04] MEDS: SENNOSIDES/DOCUSATE SODIUM TAB PO SCH (08:01)
[2016-08-04] MEDS: carBAMazepine ER 400 MG TAB PO SCH (08:01)
[2016-08-04] MEDS: PSYLLIUM METAMUCIL 1 PKT PO SCH (08:02)
[2016-08-04] MEDS: PANTOPRAZOLE SODIUM 40 MG TAB PO SCH (08:02)
[2016-08-04] MEDS: buPROPion XL 150 MG TAB PO SCH (08:02)
[2016-08-04 08:20] VITALS: PULSE 61; RESP 14; TEMP 97.4; O2SAT 94
--- NOTE | 2016-08-04 08:52 | PDIAF ---
- Diagnosis Diagnosis: hyponatremia Code Status: Full Code - Medication Management Discharge Medications: Medications to Continue on Transfer Fluticasone/Salmeter 250/50Mcg [Advair 250/50 (*)] 1 puffs IH BID #0 disk [Last Taken 06/20/16 21:00] Diclofenac Sodium [Voltaren Gel (*)] 1 eugene TP BID PRN 06/21/16 [Last Taken Unknown] Acetaminophen [Tylenol 325mg (*)] 325 mg PO Q6 PRN #0 tab 06/28/16 [Last Taken Unknown] Albuterol [Proventil Inhaler HFA (*)] 2 puffs IH Q4H PRN #0 mdi 06/28/16 [Last Taken Unknown] Aspirin [Aspirin 81mg (*)] 81 mg PO DAILY #0 tab.chew 06/28/16 [Last Taken Unknown] Atorvastatin Calcium [Lipitor 20 mg (*)] 20 mg PO HS #0 tab 06/28/16 [Last Taken Unknown] Cyclobenzaprine [Flexeril 10 MG (*)] 10 mg PO HS #0 tab 06/28/16 [Last Taken Unknown] Docusate Sodium [Colace 100 MG (*)] 100 mg PO BID PRN #0 cap 06/28/16 [Last Taken Unknown] Gabapentin [Neurontin 100 MG (*)] 100 mg PO HS #0 cap 06/28/16 [Last Taken Unknown] Levothyroxine [Synthroid 112 mcg (*)] 112 mcg PO DAILY@06 #0 tab 06/28/16 [Last Taken Unknown] Magnesium Oxide [Magnesium Oxide 400 mg (*)] 400 mg PO DAILY #0 tab 06/28/16 [ Last Taken Unknown] Melatonin [Melatonin 3 MG (*)] 3 mg PO HS PRN #0 tab 06/28/16 [Last Taken Unknown] Polyethylene Glycol 3350 [Miralax 17 gm (*)] 17 gm PO DAILY PRN #0 pkt 06/28/16 [Last Taken Unknown] Sennosides/Docusate Sodium [Senokot-S] 1 tab PO BID PRN #0 tab 06/28/16 [Last Taken Unknown] Tamsulosin HCl [Flomax 0.4 MG (*)] 0.4 mg PO HS #0 cap 06/28/16 [Last Taken Unknown] buPROPion XL [Wellbutrin 150mg XL] 150 mg PO DAILY #0 tab 06/28/16 [Last Taken Unknown] carBAMazepine ER [TEGretol XR] 400 mg PO BID #0 tab 06/28/16 [Last Taken Unknown ] guanFACINE HCL [Guanfacine HCl 1 MG (*)] 1 mg PO HS #0 tab 06/28/16 [Last Taken Unknown] traZODone [traZODONE 50MG (*)] 50 mg PO HS #0 tab 06/28/16 [Last Taken Unknown] LORazepam [Ativan (*)] 0.25 mg PO HS PRN 07/31/16 [Last Taken Unknown] [place]-3 Ethyl Est-Lovaza [Lovaza 1 gm (*)] 2 gm PO BID 07/31/16 [Last Taken Unknown] Psyllium Husk/Aspartame [Metamucil Fiber Singles Packet] 2 tbs PO TIDMEAL [Last Taken Unknown] Acetaminophen [Tylenol 325mg (*)] 650 mg PO Q4HRS PRN #0 tab 08/03/16 [Last Taken Unknown] Losartan Potassium [Cozaar 50 mg (*)] 100 mg PO DAILY #30 tab 08/03/16 [Last Taken Unknown] OLANZapine [ZyPREXA 2.5 mg (*)] 2.5 mg PO HS #30 tab 08/03/16 [Last Taken Unknown] Pantoprazole Sodium [Protonix 40mg (*)] 40 mg PO DAILY #30 tab 08/03/16 [Last Taken Unknown] Polyethylene Glycol 3350 [Miralax 17 gm (*)] 17 gm PO DAILY PRN #0 pkt 08/03/16 [Last Taken Unknown] Sennosides/Docusate Sodium [Senokot-S] 1 - 2 tab PO BID #0 tab 08/03/16 [Last Taken Unknown] amLODIPine BESYLATE [Norvasc 2.5 mg (*)] 5 mg PO DAILY #30 tab 08/03/16 [Last Taken Unknown] Discharge Medications: Refer to the Discharge Home Medication list for PRN reason. - Orders Services needed: Registered Nurse, Master Cashier Receptionist, Physical Therapy, Occupational Therapy Diet Recommendation: no restrictions on diet Diet Texture: Regular Texture Diet - Follow Up Care Current Providers and Referrals: Blanchet,Vahe L, MD [Primary Care Provider] - Anahi Coleman MD [Medical Doctor] - Patient,NotPresent [Unknown] - As per Instructions
[2016-08-04] MEDS: FLUTICASONE/SALMETER 250/50MCG DISKUS IH SCH (09:18)
== END 2016-08-04 11:45 | DRG 641 ==
LOC: EDUNIT# → F3E 08:00
PROVIDERS: ADMIT Internal Medicine; ATTEND Internal Medicine
DX: E87.1 Hypo-osmolality and hyponatremia (principal); F31.9 Bipolar disorder, unspecified; F42.9 Obsessive-compulsive disorder, unspecified; I10 Essential (primary) hypertension; E03.9 Hypothyroidism, unspecified; N40.0 Benign prostatic hyperplasia without lower urinary tract symptoms; K59.00 Constipation, unspecified; Z85.46 Personal history of malignant neoplasm of prostate
CPT/HCPCS: 96365; 97116-GP; 97161-GP; 97165-GO; 97530-GP; 97535-GO; G8978-GP-CL; G8979-GP-CJ; G8987-GO-CJ; G8988-GO-CI; J2405

== ENCOUNTER 2016-09-12 14:33 | Inpatient (IN) | payer OTHER ==
--- NOTE | 2016-09-12 14:45 | EDPHY ---
HPI/HX/ROS/PE/MDM Narrative: CHIEF COMPLAINT: Fall, weakness. HISTORY OF PRESENT ILLNESS: The patient is a 75-year-old male with a history of dementia who presents via EMS after a fall earlier today. Per EMS he was found next to his bed. He does not remember much of the accident but believes it was "unusual" in some way. He does not believe he had a syncopal episode. He does report feeling weaker than usual over the past few days and has had difficulty walking with his walker as he usually does. No fever, chills, chest pain, shortness of breath, palpitations, vomiting, diarrhea, urinary complaints , headache, lightheadedness. History is limited due to the patient's baseline dementia. He is oriented to self, place. He does not know what year, month, or season it is. REVIEW OF SYSTEMS: Limited due to baseline dementia. PAST MEDICAL HISTORY: Dementia, bipolar disorder, hypertension. SOCIAL HISTORY: Lives at [facility]. VITAL SIGNS: Reviewed by me; see NN. GENERAL: Well-developed, well-nourished, in no acute distress. HEENT: Head: Atraumatic, normocephalic. Face: Atraumatic. Dry lips. PERRL, EOMI, no nystagmus. Oropharynx: Dry mucous membrane. No trauma, normal occlusion. Neck: Nontender to palpation, no pain with range of motion, no adenopathy. CHEST: Nontender, no subcutaneous air palpable. LUNGS: Breath sounds are equal. Occasional wheeze. CARDIAC: Regular rate and rhythm, no rubs, murmurs or gallops. ABDOMEN: Soft, nontender, nondistended, bowel sounds normal. BACK: No CVA tenderness, no spinal tenderness. EXTREMITIES: Normal range of motion. Erythema to both knee, right greater than left. Swelling to right knee. Scattered ecchymosis to humerus and forearm of left arm. PULSES: 2+ and equal throughout. NEURO: Alert and oriented x3, cranial nerves are intact throughout, normal motor , normal sensation. SKIN: Warm and dry, no rash. Portions of this note were transcribed by a medical staffing coordinator. I personally performed a history, physical exam, medical decision making, and confirmed accuracy of information the transcribed note. ED Course: An IV was established and labs ordered. An ISTAT will be drawn. Chest x-ray and EKG ordered. Head CT ordered as it is unclear whether the patient's confusion today is baseline for him and he did have an unwitnessed fall which he does not remember. 500ml IV saline administered. 1526: CT results conveyed to me by Dr. Murphy, radiology. He reports slightly enlarged ventricles. ISTAT is unremarkable. CHEM panel shows low sodium at 129. Patient's workup is otherwise normal today. However, he saw Dr. Velasquez twice last week and has been reportedly falling repeatedly in that time period. He will be admitted to Dr. Velasquez for weakness. 1700: Consulted with Dr. Fonseca for Dr. Velasquez and informed her of the patient' s course. Patient has been having issues with falling and with weakness for several months. 1800: Case Management has been speaking to Sana, the patient, and the patient 's power of personal injury attorney. While [facility] is willing to have patient return, patients POA feels that he is unsafe there and needs a higher level of care. I too believe that the patient is not safe to be returning to an assisted living situation. I spoke to Dr. Fonseca again about this. Dr. Velasquez's group will admit the patient. 12-LEAD EKG: Please see the full report in [facility]. My interpretation: Normal sinus rhythm rate 75, first degree AV block, left anterior fascicular block, probable left ventricular hypertrophy, old lateral infarct. Study: CT of the head. Indication: Trauma. Results: Stable since January 2016. Is there any clinical concern for normal pressure hydrocephalus? The study was read by the radiologist, Dr. Murphy. I viewed the images myself on the PACS system. X-ray of the chest was obtained. I viewed the images myself on the PACS system. The radiologist interpretation is: nothing acute identified. I discussed the x-ray findings with the patient. MDM: Differential diagnosis for patient weakness and complaints of falls was considered including intracranial etiology, electrolyte abnormality, anemia, stroke, fracture, syncope, cardiac ischemia, arrhythmias. - Data Points Laboratory Results: Laboratory Results 09/12/16 15:30 09/12/16 15:30 09/12/16 09/12/16 09/12/16 15:45 15:30 15:30 WBC 9.94 10^3/uL H 10^3/uL (3.80-9.50) RBC 4.42 10^6/uL 10^6/uL (4.40-6.38) Hgb 13.8 g/dL g/dL (13.7-17.5) POC Hgb Hct 40.0 % % (40.0-51.0) POC Hct MCV 90.5 fL fL (81.5-99.8) MCH 31.2 pg pg (27.9-34.1) MCHC 34.5 g/dL g/dL (32.4-36.7) RDW 13.0 % % (11.5-15.2) Plt Count 228 10^3/uL 10^3/uL (150-400) MPV 9.3 fL fL (8.7-11.7) Neut % (Auto) 74.2 % % (39.3-74.2) Lymph % (Auto) 13.5 % L % (15.0-45.0) Dickenson % (Auto) 10.8 % % (4.5-13.0) Eos % (Auto) 0.8 % % (0.6-7.6) Baso % (Auto) 0.3 % % (0.3-1.7) Nucleat RBC Rel Count 0.0 % % (0.0-0.2) Absolute Neuts (auto) 7.38 10^3/uL H 10^3/uL (1.70-6.50) Absolute Lymphs (auto) 1.34 10^3/uL 10^3/uL (1.00-3.00) Absolute Monos (auto) 1.07 10^3/uL H 10^3/uL (0.30-0.80) Absolute Eos (auto) 0.08 10^3/uL 10^3/uL (0.03-0.40) Absolute Basos (auto) 0.03 10^3/uL 10^3/uL (0.02-0.10) Absolute Nucleated RBC 0.00 10^3/uL 10^3/uL (0-0.01) Immature Gran % 0.4 % % (0.0-1.1) Immature Gran # 0.04 10^3/uL 10^3/uL (0.00-0.10) POC Sodium Sodium 129 mEq/L L mEq/L (134-144) POC Potassium Potassium 4.0 mEq/L mEq/L (3.5-5.2) POC Chloride Chloride 95 mEq/L L mEq/L (97-110) Carbon Dioxide 23 mEq/l mEq/l (22-31) Anion Gap 11 mEq/L mEq/L (8-16) POC BUN BUN 18 mg/dL mg/dL (7-23) Creatinine 0.7 mg/dL mg/dL (0.7-1.3) POC Creatinine Estimated GFR > 60 Glucose 112 mg/dL H mg/dL (70-100) POC Glucose Calcium 9.6 mg/dL mg/dL (8.5-10.4) Total Bilirubin 0.7 mg/dL mg/dL (0.1-1.4) Conjugated Bilirubin 0.4 mg/dL mg/dL (0.0-0.5) Unconjugated Bilirubin 0.3 mg/dL mg/dL (0.0-1.1) AST 47 IU/L IU/L (17-59) ALT 44 IU/L IU/L (21-72) Alkaline Phosphatase 74 IU/L IU/L (38-126) Troponin I < 0.012 ng/mL ng/mL (0-0.034) Total Protein 7.3 g/dL g/dL (6.3-8.2) Albumin 4.8 g/dL g/dL (3.5-5.0) Lipase 59.0 IU/L IU/L (23-300) Urine Color YELLOW Urine Appearance CLEAR Urine pH 5.0 (5.0-7.5) Ur Specific [place] 1.011 (1.002-1.030) Urine Protein NEGATIVE (NEGATIVE) Urine Ketones TRACE H (NEGATIVE) Urine Blood 1+ H (NEGATIVE) Urine Nitrate NEGATIVE (NEGATIVE) Urine Bilirubin NEGATIVE (NEGATIVE) Urine Urobilinogen NEGATIVE EU EU (0.2-1.0) Ur Leukocyte Esterase NEGATIVE (NEGATIVE) Urine RBC 1-3 /hpf /hpf (0-3) Urine WBC 1-3 /hpf /hpf (0-3) Ur Epithelial Cells NONE SEEN /lpf /lpf (NONE-1+) Urine Glucose NEGATIVE (NEGATIVE) 09/12/16 15:25 WBC RBC Hgb POC Hgb 15.0 gm/dL gm/dL (14.5-17.3) Hct POC Hct 44 % % (42.8-50.6) MCV MCH MCHC RDW Plt Count MPV Neut % (Auto) Lymph % (Auto) Dickenson % (Auto) Eos % (Auto) Baso % (Auto) Nucleat RBC Rel Count Absolute Neuts (auto) Absolute Lymphs (auto) Absolute Monos (auto) Absolute Eos (auto) Absolute Basos (auto) Absolute Nucleated RBC Immature Gran % Immature Gran # POC Sodium 130 mEq/L L mEq/L (134-144) Sodium POC Potassium 3.7 mEq/L mEq/L (3.3-5.0) Potassium POC Chloride 95 mEq/L L mEq/L (96-108) Chloride Carbon Dioxide Anion Gap POC BUN 18 mg/dL mg/dL (7-23) BUN Creatinine POC Creatinine 0.7 mg/dL L mg/dL (0.8-1.5) Estimated GFR Glucose POC Glucose 116 mg/dL H mg/dL (70-100) Calcium Total Bilirubin Conjugated Bilirubin Unconjugated Bilirubin AST ALT Alkaline Phosphatase Troponin I Total Protein Albumin Lipase Urine Color Urine Appearance Urine pH Ur Specific [place] Urine Protein Urine Ketones Urine Blood Urine Nitrate Urine Bilirubin Urine Urobilinogen Ur Leukocyte Esterase Urine RBC Urine WBC Ur Epithelial Cells Urine Glucose Medications Given: Discontinued Medications Sodium Chloride (Ns) 500 mls @ 0 mls/hr IV ONCE ONE PRN Reason: As Directed Stop: 09/12/16 14:59 Last Admin: 09/12/16 16:00 Dose: 500 mls Point of Care Test Results: 09/12/16 15:25 POC Sodium 130 L POC Potassium 3.7 POC Chloride 95 L POC BUN 18 POC Creatinine 0.7 L POC Glucose 116 H General Initial Vital Signs: Initial Vital Signs Temperature (C) 36.7 C 09/12/16 15:20 Heart Rate 75 09/12/16 15:20 Respiratory Rate 16 09/12/16 15:20 Blood Pressure 163/78 H 09/12/16 15:20 O2 Sat (%) 95 09/12/16 15:20 O2 Delivery Mode Room Air Allergies/Adverse Reactions: No Known Allergies Allergy (Verified 09/12/16 14:54) Home Medications: Medication Instructions Recorded Acetaminophen [Tylenol Arthritis] 1,300 mg PO TID@09/12/16 Aspirin [Aspirin 81mg (*)] 81 mg PO DAILY 09/12/16 Atorvastatin Calcium [Lipitor 20 20 mg PO DAILY@192909/12/16 mg (*)] Cyclobenzaprine [Flexeril 10 MG 10 mg PO DAILY@192909/12/16 (*)] Fluticasone/Salmeter 250/50Mcg 1 puffs IH BID@0900,192909/12/16 [Advair 250/50 (*)] Gabapentin [Neurontin 100 MG (*)] 100 mg PO DAILY@192909/12/16 LORazepam [Ativan (*)] 0.5 mg PO HS 09/12/16 Levothyroxine [Synthroid 112 mcg 112 mcg PO DAILY06 09/12/16 (*)] Losartan Potassium [Cozaar] 100 mg PO DAILY 09/12/16 Magnesium Oxide [Magnesium Oxide 400 mg PO DAILY 09/12/16 400 mg (*)] Melatonin [Melatonin 3 MG (*)] 3 mg PO HS PRN 09/12/16 OLANZapine [ZyPREXA 2.5 mg (*)] 2.5 mg PO DAILY@192909/12/16 [place]-3 Ethyl Est-Lovaza [Lovaza 1 2 gm PO BID@729,192909/12/16 gm (*)] Pantoprazole Sodium [Protonix 40mg 40 mg PO DAILY 09/12/16 (*)] Polyethylene Glycol 3350 [Miralax 17 gm PO DAILY PRN 09/12/16 17 gm (*)] Psyllium Husk (with Sugar) 1 each PO TID@09/12/16 [Metamucil Packet] Sennosides/Docusate Sodium 1 each PO BID@729,192909/12/16 [Senokot-S (OTC)] Sodium Chloride [Salt Tablet] 1,000 mg PO DAILY 09/12/16 Tamsulosin HCl [Flomax 0.4 MG (*)] 0.4 mg PO DAILY@192909/12/16 amLODIPine BESYLATE [Norvasc 10 mg 10 mg PO DAILY 09/12/16 (*)] buPROPion SR [Wellbutrin 150mg SR 150 mg PO DAILY 09/12/16 (*)] carBAMazepine ER [TEGretol XR] 400 mg PO BID@0730,192909/12/16 guanFACINE HCL [Guanfacine HCl 1 1 mg PO DAILY@192909/12/16 MG (*)] traZODone [traZODONE 50MG (*)] 50 mg PO HS 09/12/16 Departure - Departure Disposition: [facility] Acute Clinical Impression: Generalized weakness Fall Qualifiers: Encounter type: initial encounter Qualified Code(s): W19.XXXA - Unspecified fall, initial encounter Condition: Fair Report Scribed for: Paula Castanon Report Scribed by: Rosales Fuentes Date of Report: 09/12/16 Time of Report: 14:45
[2016-09-12] MEDS ORDERED: NS 500 ML IV ONE (14:58)
[2016-09-12 15:37] LABS: % IMMATURE GRANULYOCYTES 0.4 % (0.0-1.1); ABSOLUTE IMMATURE GRANULOCYTES 0.04 10^3/uL (0.00-0.10); ADD DIFF? NO; ADD MORPH? NO; ADD SCAN? NO; ATYPICAL LYMPHOCYTE FLAG 0 (0-99); FRAGMENT RBC FLAG 0 (0-99); HEMOGLOBIN 13.8 g/dL (13.7-17.5); LEFT SHIFT FLG 0 (0-99); LIPEMIA HEMOLYSIS FLAG 90 (0-99); MEAN CELL HEMOGLOBIN 31.2 pg (27.9-34.1); MEAN CELL HEMOGLOBIN CONCENTR. 34.5 g/dL (32.4-36.7); MEAN CELL VOLUME 90.5 fL (81.5-99.8); MEAN PLATELET VOLUME 9.3 fL (8.7-11.7); PLATELET CLUMPS FLAG 90 (0-99); PLATELET COUNT 228 10^3/uL (150-400); RED BLOOD CELL COUNT 4.42 10^6/uL (4.40-6.38)
--- NOTE | 2016-09-12 15:44 | CPEKG ---
Heart Rate: 75 RR Interval: 800 P-R Interval: 220 QRSD Interval: 114 QT Interval: 424 QTC Interval: 474 P [place]: 42 QRS [place]: -51 T Wave [place]: 26 EKG Severity - ABNORMAL ECG - EKG Impression: SINUS RHYTHM EKG Impression: FIRST DEGREE AV BLOCK EKG Impression: LEFT ANTERIOR FASCICULAR BLOCK EKG Impression: PROBABLE LEFT VENTRICULAR HYPERTROPHY EKG Impression: LATERAL INFARCT, OLD Electronically Signed By: Paula Castanon 12-Sep-2016 22:30:46
[2016-09-12 15:47] LABS: ALANINE AMINOTRANSFERASE 44 IU/L (21-72); ALBUMIN 4.8 g/dL (3.5-5.0); ALKALINE PHOSPHATASE 74 IU/L (38-126); ANION GAP 11 mEq/L (8-16); ASPARTATE AMINOTRANSFERASE 47 IU/L (17-59); BILIRUBIN,TOTAL 0.7 mg/dL (0.1-1.4); BILIRUBIN-CONJUGATED 0.4 mg/dL (0.0-0.5); BILIRUBIN-UNCONJUGATED 0.3 mg/dL (0.0-1.1); CALCIUM 9.6 mg/dL (8.5-10.4); CARBON DIOXIDE 23 mEq/l (22-31); CHLORIDE 95 mEq/L (97-110); CREATININE 0.7 mg/dL (0.7-1.3); GLOMERULAR FILTRATION RATE > 60; GLUCOSE 112 mg/dL (70-100); SODIUM 129 mEq/L (134-144); TOTAL PROTEIN 7.3 g/dL (6.3-8.2)
[2016-09-12 15:59] LABS: TROPONIN I < 0.012 ng/mL (0-0.034)
[2016-09-12 16:01] LABS: COLOR YELLOW; LEUKOCYTE ESTERASE,URINE NEGATIVE (NEGATIVE); NITRITE,URINE NEGATIVE (NEGATIVE)
--- NOTE | 2016-09-12 20:08 | SOAPPROG ---
SOAP Progress Note Assessment/Plan: Assessment: Plan: 09/12/16 20:21 1. Fall: apparently unwitnessed, and no clear etiology. Long hx of increasing weakness over time, but nothing in hx to suggest acute illness as cause. 2. Weakness: observed in ER. Unclear if he has increased weakness over baseline , and there is concern for ongoing fall risk, safety at [place]. He appears to have made progress with PT, but not enough to be independent with transferring, moving about apartment. Will have PT, OT assess. 3. Hypertension: BP currently elevated. On irbesartan, amlodipine, so will continue these. 4. Depression: just started on lithium, so will continue. Concern that his mental health may deteriorate if he is placed in long term. He would prefer to return to [place], possibly with additional care. Will request transitional care consult. 5. Memory difficulties: he doesn't have a diagnosis of dementia, though it is difficult for him to speak fluently, to find words. Likely multifactorial, related to head injury, depression, anxiety. Per Dr. Velasquez's note from office visit on 09/10, this was much improved. His fluency did seem to improve over the course of our interview. 7. DVT prophylaxis: will use support hose 8. Hypothyroidism: on replacement 09/12/16 20:51 09/12/16 21:04 09/12/16 21:08 Subjective: 75 yo male with hx weakness, depression, head injury from fall last summer was brought to ED by ambulance from [place] after he was found on the floor by his bed, presumably due to a fall. He has no recollection of what happened. He was just seen by Dr. Velasquez in the office on 09/10/16. He has had gradually worsening weakness over the last several months. He uses a walker, and has been working with PT. He has gotten stronger, but remains a fall risk and needs help transferring and moving about his apartment. In the office Tuesday, he seemed stronger and more steady, improved from his visit on 09/06/16. It was also thought a wheelchair would be helpful for him to be more independent. Given that he seemed to be making progress, he doesn't really understand what happened , such that he was found down and is now in the hospital. In the ED, he was too weak to stand to urinate. Per discussion with ER physician, both Sana and his sister, who is POA, didn't feel he was safe to return to [place], and are thinking he needs a higher level of care. Per discussion with Dr. Velasquez, the pt doesn't do well in nursing facilities. Depression becomes much worse, and his quality of life deteriorates as well. Pt states that he has been making a significant effort to get to meals and to socialize, and to do everything he can to help himself. Of note, he was recently placed on lithium ER 300mg, 2 bid , and Tegretol was decreased due to hyponatremia. Most recent Na in ED 130, improved from 127 on 09/06/16. Head CT was without significant change, and CXR showed no acute process. He is being admitted for further evaluation. Objective: Vital Signs Temp Pulse Resp BP Pulse Ox 37.0 C 75 16 163/104 H 95 09/12/16 18:42 09/12/16 18:42 09/12/16 18:42 09/12/16 18:42 09/12/16 18:42 09/11/16 09/12/16 09/13/16 05:59 05:59 05:59 Intake Total 500 Balance 500 General: well-appearing male, well-nourished, well-developed, NAD HEENT: PERRL, EOMI. Oropharynx without erythema. Neck: no masses, adenopathy. No thyromegaly, masses, tenderness Lungs: clear bilaterally Cardiovascular: RRR without murmur Abdomen: +bowel sounds, soft, NT Extremities: trace edema Neurologic: alert, moving all extremities Psychiatric: speech is non-fluent, though improved with time. Trouble with word finding. Able to recall details of a story from the past with time. ICD10 Worksheet Patient Problems: Problems Problem Status Onset Fall Acute Generalized weakness Acute Anxiety Acute Coffee ground emesis Acute Confusion Acute Expressive aphasia Acute Head injury Acute Hypertension Acute Hypochloremia Acute Hyponatremia Acute OCD (obsessive compulsive disorder) Acute Scalp laceration Acute Spinal stenosis Acute Syncope Acute TIA (transient ischemic attack) Acute
[2016-09-12] MEDS ORDERED: ONDANSETRON 4 MG/2 ML VIAL IVP PRN (20:36)
[2016-09-12] MEDS ORDERED: POLYETHYLENE GLYCOL 3350 17 GM PKT PO PRN (20:36)
[2016-09-12] MEDS ORDERED: MAGNESIUM HYDROXIDE 30 ML UDCUP PO PRN (20:36)
[2016-09-12] MEDS ORDERED: BISACODYL 10 MG SUPP PR PRN (20:36)
[2016-09-12] MEDS ORDERED: ACETAMINOPHEN 325 MG TAB PO PRN (20:36)
[2016-09-12] MEDS ORDERED: ONDANSETRON DISINTEGRATING 4 MG TAB PO PRN (20:36)
[2016-09-12] MEDS ORDERED: LACTULOSE 20 GM/30 ML UDCUP PO PRN (20:36)
[2016-09-12] MEDS ORDERED: LORazepam 0.5 MG TAB PO SCH (21:00)
--- NOTE | 2016-09-12 21:49 | GHP ---
[f rep st] HISTORY AND PHYSICAL DATE OF ADMISSION: 09/12/2016 HISTORY OF PRESENT ILLNESS: The patient is a 75-year-old male with a history of multiple medical problems including weakness, depression, and a head injury from a fall last summer who was brought to the emergency department by ambulance from [facility] after he was found down on the floor near his bed, presumably due to a fall. He has no recollection of what happened. He had just been seen in Dr. Velasquez's office on 09/10/2016 and was doing reasonably well. He has had gradually worsening weakness over the last several months. He uses a walker at [facility] and has been working with physical therapy. He has gotten stronger, but he remains a fall risk and needs help with transfers and moving about in his apartment. In the office on Tuesday, he seemed stronger and more steady, improved from his visit earlier in the week. It was thought that a wheelchair would be helpful for him to be more independent in his apartment, and that has been ordered. Given that he seemed to be making progress, he does not really understand what happened such that he was found down and is now in the hospital. In the emergency department, he was too weak to stand to urinate. Per discussion with the emergency room physician, both Sana and the patient's sister, who is his power of nozzle operator, did not feel that he was safe enough to return to [facility] and are thinking that he needs a higher level of care. Per discussion with Dr. Velasquez, the patient does not do well in nursing facilities. His depression becomes much worse, and his quality of life deteriorates as well. The patient states that he has been making a significant effort to get to his meals and to socialize at meals, and do everything that he can to help himself. Of note, Dr. Vleasquez recently placed him on lithium ER 300 mg 2 b.i.d. and discontinued his Tegretol due to hyponatremia. In the emergency department, his sodium was 130, improved from 127 on 09/06/2016. Head CT was without significant change. Chest x-ray was unremarkable. He is being admitted for further evaluation. PAST MEDICAL HISTORY: Depression, ADD, obsessive-compulsive disorder, memory changes, weakness, atherosclerosis, high cholesterol, hypertension, prostate cancer, hypothyroidism, cellulitis and abscess of leg, edema, hyponatremia. MEDICATIONS: Irbesartan 150 mg daily, lorazepam 0.5 mg at bedtime, Tylenol 650 mg t.i.d., cyclobenzaprine 10 mg at bedtime, Lipitor 20 mg daily, amlodipine 2.5 mg daily, Synthroid 112 mcg daily, Advair Diskus 250/50 mcg 1 puff twice daily, ProAir and albuterol nebulizers as needed every 4 hours, olanzapine 2.5 mg twice a day, Flomax 0.4 mg daily, Lovaza 2 capsules twice a day, gabapentin 100 mg daily, chlorthalidone 25 mg daily, baby aspirin 81 mg daily, Colace 100 mg twice daily as needed, senna as needed, melatonin 3 mg at bedtime as needed, MiraLAX p.r.n., lithium carbonate extended release 300 mg 2 p.o. b.i.d. ALLERGIES: Lisinopril causes a cough. SURGICAL HISTORY: Anterior cervical surgery, posterior cervical surgery, tonsillectomy, radical prostatectomy, hernia repair x2. FAMILY HISTORY: His father has a history of prostate cancer and hypertension. His mother has . He has a brother with a history of prostate cancer. SOCIAL HISTORY: He is a nonsmoker. He is . He does not drink alcohol. REVIEW OF SYSTEMS: GENERAL: No fever or chills. No changes in appetite. He acknowledges intermittent insomnia. HEENT: No runny nose, head congestion, or sore throat. CARDIOVASCULAR: No chest pain or pressure. No arrhythmia. RESPIRATORY: Mild cough, nonproductive. No shortness of breath. GI: No nausea, vomiting, diarrhea, or constipation. No abdominal pain or blood in the stool. GENITOURINARY: No dysuria or hematuria. MUSCULOSKELETAL: No joint pain or swelling. NEUROLOGIC: Occasional headaches in the last couple of days. Some word-finding difficulty and difficulty expressing himself fluently as noted above. PSYCHIATRIC: Ongoing issues with depression and anxiety. PHYSICAL EXAMINATION: VITAL SIGNS: Temperature 37 degrees Celsius, pulse 75, respirations 16, blood pressure 163/104, O2 saturation 95% on room air. GENERAL : He is a well-appearing male, well nourished, well developed, and in no acute distress. HEENT: Pupils are equal, round, and reactive to light. Extraocular movements are intact. Oropharynx is without erythema. NECK: Supple, without masses or adenopathy. No thyromegaly, neck masses, or tenderness. LUNGS: Clear bilaterally. CARDIOVASCULAR: Regular rate and rhythm, without murmur. ABDOMEN: Normal bowel sounds. Soft and nontender. EXTREMITIES: Trace edema. NEUROLOGIC: He is alert and moving all extremities. PSYCHIATRIC: Speech is nonfluent, though improved with time. Trouble with word-finding. He is able to recall details of the story from the past with time. ASSESSMENT AND PLAN: 1. Fall, apparently unwitnessed, with no clear etiology. He has a long history of increasing weakness over time, but nothing in the current history to suggest acute illness as the cause, and the patient is unable to provide any further understanding as to why he might have fallen. 2. Weakness observed in the emergency department. Unclear if he has increased weakness over baseline, and there is concern for ongoing fall risk and safety at [facility]. He appears to have made progress with physical therapy, but not enough to be independent with transferring or moving about his apartment. I will have PT and OT assess. 3. Hypertension. Blood pressure is currently elevated. He is on irbesartan, amlodipine, and chlorthalidone, so we will continue with these. 4. Depression. He just started on lithium, so we will continue. Concern that his mental health may deteriorate if he is placed in a custodial. He would prefer to return to [facility], possibly with additional care. We will request a transitional care consult. 5. Memory difficulties. He does not have a diagnosis of dementia, though it is difficult for him to speak fluently and to find words. I suspect this is multifactorial related to his head injury, his depression, and underlying anxiety. From Dr. Velasquez's note from the office visit on 09/10/2016, his fluency was much improved. His fluency also did seem to improve over the course of our interview. 6. DVT prophylaxis. We will use support hose. 7. Hypothyroidism. On replacement. /[id number]/MODL MTDD
[2016-09-12] MEDS: LITHIUM CARBONATE ER 300 MG TAB PO SCH (22:23)
[2016-09-12] MEDS: SENNOSIDES/DOCUSATE SODIUM TAB PO SCH (22:24)
[2016-09-12] MEDS: traZODone 50 MG TAB PO SCH (22:24)
[2016-09-13] MEDS: MELATONIN 3 MG TAB PO PRN (00:16)
[2016-09-13] MEDS: LEVOTHYROXINE 112 MCG TAB PO SCH (05:49)
[2016-09-13 06:36] LABS: ANION GAP 10 mEq/L (8-16); CALCIUM 9.6 mg/dL (8.5-10.4); CARBON DIOXIDE 24 mEq/l (22-31); CHLORIDE 101 mEq/L (97-110); CREATININE 0.6 mg/dL (0.7-1.3); GLOMERULAR FILTRATION RATE > 60; GLUCOSE 109 mg/dL (70-100); POTASSIUM 3.9 mEq/L (3.5-5.2); SODIUM 135 mEq/L (134-144)
[2016-09-13] MEDS: FLUTICASONE/SALMETER 250/50MCG DISKUS IH SCH ×2 (08:33→21:52)
--- NOTE | 2016-09-13 09:00 | SOAPPROG ---
SOAP Progress Note Assessment/Plan: Assessment:Possible fall, details are unclear. OCD and anxiety under improved control. Poor gait. Plan:PT and OT consults. He does very poorly at SNF. Does less than optimally at assisted living. Needs more help than he has at home. Fall of uncertain etiology. 09/13/16 08:59 Subjective: Feeling OK. Does not have any recollection of a fall. He does remember the aide asking about what happened last night. CO some neck pain. Not substantially different than historically. Objective: Vital Signs Temp Pulse Resp BP Pulse Ox 37.1 C 74 18 121/62 H 94 09/13/16 07:30 09/13/16 08:33 09/13/16 08:33 09/13/16 07:30 09/13/16 08:33 Laboratory Results 09/13/16 06:15 09/12/16 09/13/16 09/14/16 05:59 05:59 05:59 Intake Total 900 Output Total 700 Balance 200 alert and oriented. Answers questions appropriately. Remembers Dr. Fonseca last night. No cough or SOB ICD10 Worksheet Patient Problems: Problems Problem Status Onset Fall Acute Generalized weakness Acute Anxiety Acute Coffee ground emesis Acute Confusion Acute Expressive aphasia Acute Head injury Acute Hypertension Acute Hypochloremia Acute Hyponatremia Acute OCD (obsessive compulsive disorder) Acute Scalp laceration Acute Spinal stenosis Acute Syncope Acute TIA (transient ischemic attack) Acute
[2016-09-13] MEDS: MAGNESIUM OXIDE 400 MG TAB PO SCH (10:10)
[2016-09-13] MEDS: buPROPion SR 150 MG TAB PO SCH (10:10)
[2016-09-13] MEDS: PSYLLIUM METAMUCIL 1 PKT PO SCH ×3 (10:10→18:45)
[2016-09-13] MEDS: LOSARTAN POTASSIUM 50 MG TAB PO SCH (10:10)
[2016-09-13] MEDS: PANTOPRAZOLE SODIUM 40 MG TAB PO SCH (10:11)
[2016-09-13] MEDS: ASPIRIN 81 MG CHEWABLE TAB PO SCH (10:11)
[2016-09-13] MEDS: ACETAMINOPHEN 500 MG TAB PO SCH ×3 (10:11→18:45)
[2016-09-13] MEDS: OMEGA-3 ETHYL EST-LOVAZA 1 GM CAP PO SCH ×2 (10:11→18:45)
[2016-09-13] MEDS: SODIUM CHLORIDE 1,000 MG TAB PO SCH (10:11)
[2016-09-13] MEDS: LITHIUM CARBONATE ER 300 MG TAB PO SCH ×3 (10:12→21:47)
[2016-09-13] MEDS: SENNOSIDES/DOCUSATE SODIUM TAB PO SCH ×2 (10:12→21:48)
[2016-09-13] MEDS ORDERED: ATORVASTATIN CALCIUM 20 MG TAB PO SCH (19:30)
[2016-09-13] MEDS ORDERED: TAMSULOSIN HCL 0.4 MG CAP PO SCH (19:30)
[2016-09-13] MEDS ORDERED: CYCLOBENZAPRINE 10 MG TAB PO SCH (19:30)
[2016-09-13] MEDS ORDERED: OLANZapine 2.5 MG TAB PO SCH (19:30)
[2016-09-13] MEDS ORDERED: GABAPENTIN 100 MG CAP PO SCH (19:30)
[2016-09-13] MEDS: traZODone 50 MG TAB PO SCH (21:48)
[2016-09-13] MEDS: guanFACINE HCL 1 MG TAB PO SCH (21:48)
[2016-09-14 05:38] LABS: POTASSIUM 4.1 mEq/L (3.5-5.2)
[2016-09-14 05:39] LABS: ALANINE AMINOTRANSFERASE 35 IU/L (21-72); ALKALINE PHOSPHATASE 60 IU/L (38-126); ANION GAP 11 mEq/L (8-16); ASPARTATE AMINOTRANSFERASE 31 IU/L (17-59); BILIRUBIN,TOTAL 0.4 mg/dL (0.1-1.4); CALCIUM 9.5 mg/dL (8.5-10.4); CARBON DIOXIDE 22 mEq/l (22-31); CHLORIDE 107 mEq/L (97-110); CREATININE 0.7 mg/dL (0.7-1.3); GLOMERULAR FILTRATION RATE > 60; GLUCOSE 114 mg/dL (70-100); LITHIUM 0.6 mEq/L (0.6-1.2); SODIUM 140 mEq/L (134-144); TOTAL PROTEIN 6.6 g/dL (6.3-8.2)
[2016-09-14] MEDS: ACETAMINOPHEN 500 MG TAB PO SCH ×3 (05:54→18:32)
[2016-09-14] MEDS: LEVOTHYROXINE 112 MCG TAB PO SCH (05:55)
[2016-09-14] MEDS: MAGNESIUM OXIDE 400 MG TAB PO SCH (08:32)
[2016-09-14] MEDS: SODIUM CHLORIDE 1,000 MG TAB PO SCH (08:32)
[2016-09-14] MEDS: SENNOSIDES/DOCUSATE SODIUM TAB PO SCH ×2 (08:32→20:22)
[2016-09-14] MEDS: OMEGA-3 ETHYL EST-LOVAZA 1 GM CAP PO SCH ×2 (08:32→20:23)
[2016-09-14] MEDS: buPROPion SR 150 MG TAB PO SCH (08:33)
[2016-09-14] MEDS: LOSARTAN POTASSIUM 50 MG TAB PO SCH (08:33)
[2016-09-14] MEDS: PANTOPRAZOLE SODIUM 40 MG TAB PO SCH (08:33)
[2016-09-14] MEDS: LITHIUM CARBONATE ER 300 MG TAB PO SCH ×2 (08:33→20:23)
[2016-09-14] MEDS: ASPIRIN 81 MG CHEWABLE TAB PO SCH (08:33)
[2016-09-14] MEDS: PSYLLIUM METAMUCIL 1 PKT PO SCH ×3 (08:34→20:24)
[2016-09-14] MEDS: FLUTICASONE/SALMETER 250/50MCG DISKUS IH SCH ×2 (08:35→21:34)
--- NOTE | 2016-09-14 08:53 | SOAPPROG ---
SOAP Progress Note Assessment/Plan: Assessment:Possible fall, details are unclear. OCD and anxiety under improved control. Poor gait. Labile BP Plan:PT and OT consults. He does very poorly at SNF. Does less than optimally at assisted living. Needs more help than he has at home. Fall of uncertain etiology. Will make further adjustments of medications. Restart Prozac as it seems that his hyponatremia may be more due to Tegretol rather than Prozac. Will stop flomax due to labile BP. COnt with PT and OT. 09/13/16 08:59 09/14/16 08:51 Subjective: Feels weak. Able to walk to bathroom this morning. Feels generally bad. Objective: Vital Signs Temp Pulse Resp BP Pulse Ox 36.6 C 64 12 144/60 H 92 09/14/16 07:59 09/14/16 07:59 09/14/16 07:59 09/14/16 08:33 09/14/16 07:59 Laboratory Results 09/14/16 04:50 09/13/16 09/14/16 09/15/16 05:59 05:59 05:59 Intake Total 900 1150 Output Total 700 Balance 200 1150 Less anxious. Seems depressed. Lungs clear. Episode of disorientation last night. Lungs clear, COR RRR. Labile blood pressure. ICD10 Worksheet Patient Problems: Problems Problem Status Onset Fall Acute Generalized weakness Acute Anxiety Acute Coffee ground emesis Acute Confusion Acute Expressive aphasia Acute Head injury Acute Hypertension Acute Hypochloremia Acute Hyponatremia Acute OCD (obsessive compulsive disorder) Acute Scalp laceration Acute Spinal stenosis Acute Syncope Acute TIA (transient ischemic attack) Acute
[2016-09-14] MEDS: FLUoxetine 20 MG CAP PO SCH (11:40)
[2016-09-14] MEDS: CYCLOBENZAPRINE 10 MG TAB PO PRN ×2 (18:33→23:25)
[2016-09-14] MEDS ORDERED: CYCLOBENZAPRINE 10 MG TAB PO PRN (18:35)
[2016-09-14] MEDS: traZODone 50 MG TAB PO SCH (20:23)
[2016-09-14] MEDS: guanFACINE HCL 1 MG TAB PO SCH (20:23)
[2016-09-14] MEDS: MELATONIN 3 MG TAB PO PRN (20:27)
[2016-09-14] MEDS: QUEtiapine FUMARATE 25 MG TAB PO SCH (20:55)
[2016-09-15] MEDS: ACETAMINOPHEN 500 MG TAB PO SCH ×2 (06:09→13:57)
[2016-09-15] MEDS: LEVOTHYROXINE 112 MCG TAB PO SCH (06:10)
[2016-09-15 07:15] VITALS: BP 166/80; TEMP 97.9
[2016-09-15] MEDS: MAGNESIUM OXIDE 400 MG TAB PO SCH (08:40)
[2016-09-15] MEDS: QUEtiapine FUMARATE 25 MG TAB PO SCH (08:40)
[2016-09-15] MEDS: SODIUM CHLORIDE 1,000 MG TAB PO SCH (08:40)
[2016-09-15] MEDS: ASPIRIN 81 MG CHEWABLE TAB PO SCH (08:40)
[2016-09-15] MEDS: buPROPion SR 150 MG TAB PO SCH (08:40)
[2016-09-15] MEDS: FLUoxetine 20 MG CAP PO SCH (08:40)
[2016-09-15] MEDS: OMEGA-3 ETHYL EST-LOVAZA 1 GM CAP PO SCH (08:40)
[2016-09-15] MEDS: SENNOSIDES/DOCUSATE SODIUM TAB PO SCH (08:40)
[2016-09-15] MEDS: PANTOPRAZOLE SODIUM 40 MG TAB PO SCH (08:40)
[2016-09-15] MEDS: LOSARTAN POTASSIUM 50 MG TAB PO SCH (08:40)
[2016-09-15] MEDS: LITHIUM CARBONATE ER 300 MG TAB PO SCH (08:40)
[2016-09-15] MEDS: PSYLLIUM METAMUCIL 1 PKT PO SCH ×2 (08:41→13:58)
[2016-09-15] MEDS: CYCLOBENZAPRINE 10 MG TAB PO PRN (08:41)
[2016-09-15] MEDS: FLUTICASONE/SALMETER 250/50MCG DISKUS IH SCH (09:12)
[2016-09-15 09:19] VITALS: PULSE 70; RESP 12; O2SAT 91
[2016-09-15] MEDS ORDERED: LITHIUM CARBONATE ER 300 MG TAB PO SCH (13:50)
[2016-09-15] MEDS ORDERED: FLUoxetine 20 MG CAP PO SCH (14:03)
--- NOTE | 2016-09-15 14:08 | SOAPPROG ---
SOAP Progress Note Assessment/Plan: Assessment:Possible fall, details are unclear. OCD and anxiety under improved control. Poor gait. Labile BP. 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 Plan:PT and OT consults. He agrees to try [facility] for SNF rehab. Will increase lithium and increase prozac. Keep him off tegretol and gabapentum. Will make further adjustments of medications. Restart Prozac as it seems that his hyponatremia may be more due to Tegretol rather than Prozac. Will stop flomax due to labile BP. Cnt with PT and OT. 09/13/16 08:59 09/14/16 08:51 09/15/16 14:06 Subjective: More alert. We discussed his dislike of the bed and chair alarm. He is concerned about getting better and more independent. Objective: Vital Signs Temp Pulse Resp BP Pulse Ox 36.6 C 70 12 166/80 H 91 L 09/15/16 07:13 09/15/16 09:13 09/15/16 09:13 09/15/16 08:40 09/15/16 09:13 Laboratory Results 09/14/16 04:50 09/14/16 09/15/16 09/16/16 05:59 05:59 05:59 Intake Total 1150 1000 Balance 1150 1000 Seems more alert and oriented. Quick to answer questions. Still having some neck pain. No shortness of breath. ICD10 Worksheet Patient Problems: Problems Problem Status Onset Fall Acute Generalized weakness Acute Anxiety Acute Coffee ground emesis Acute Confusion Acute Expressive aphasia Acute Head injury Acute Hypertension Acute Hypochloremia Acute Hyponatremia Acute OCD (obsessive compulsive disorder) Acute Scalp laceration Acute Spinal stenosis Acute Syncope Acute TIA (transient ischemic attack) Acute
--- NOTE | 2016-09-15 14:22 | PDIAF ---
- Diagnosis Code Status: Full Code - Medication Management Discharge Medications: Medications to Continue on Transfer Acetaminophen [Tylenol Arthritis] 1,300 mg PO TID@09/12/16 [Last Taken 09/12/16 13:00] Aspirin [Aspirin 81mg (*)] 81 mg PO DAILY 09/12/16 [Last Taken 09/12/16] Atorvastatin Calcium [Lipitor 20 mg (*)] 20 mg PO DAILY@192909/12/16 [Last Taken 09/11/16] Fluticasone/Salmeter 250/50Mcg [Advair 250/50 (*)] 1 puffs IH BID@07/30 [Last Taken 09/12/16 07:30] Levothyroxine [Synthroid 112 mcg (*)] 112 mcg PO DAILY06 09/12/16 [Last Taken ] Losartan Potassium [Cozaar] 100 mg PO DAILY 09/12/16 [Last Taken 09/12/16] Magnesium Oxide [Magnesium Oxide 400 mg (*)] 400 mg PO DAILY 09/12/16 [Last Taken 09/12/16] Emerson-3 Ethyl Est-Lovaza [Lovaza 1 gm (*)] 2 gm PO BID@09/12/16 [Last Taken 09/12/16 09:00] Pantoprazole Sodium [Protonix 40mg (*)] 40 mg PO DAILY 09/12/16 [Last Taken 07/30] Psyllium Husk (with Sugar) [Metamucil Packet] 1 each PO TID@09/12/16 [Last Taken 09/12/16 13:00] amLODIPine BESYLATE [Norvasc 10 mg (*)] 10 mg PO DAILY 09/12/16 [Last Taken 07/30] guanFACINE HCL [Guanfacine HCl 1 MG (*)] 1 mg PO DAILY@192909/12/16 [Last Taken 09/11/16] traZODone [traZODONE 50MG (*)] 50 mg PO HS 09/12/16 [Last Taken 09/11/16] FLUoxetine [Prozac 20 MG (*)] 40 mg PO DAILY #0 cap 09/15/16 [Last Taken Unknown ] [place] Carbonate ER [Lithobid 300 mg (*)] 450 mg PO BID #0 tab 09/15/16 [Last Taken Unknown] Polyethylene Glycol 3350 [Miralax 17 gm (*)] 17 gm PO DAILY PRN #0 pkt 09/15/16 [Last Taken Unknown] QUEtiapine FUMARATE [Seroquel 25 mg (*)] 25 mg PO DAILY #0 tab 09/15/16 [Last Taken Unknown] Discharge Medications: Refer to the Discharge Home Medication list for PRN reason. PICC Care - Routine: N/A - Orders Services needed: Registered Nurse, Master Presiding Steward, Physical Therapy, Occupational Therapy, Speech Language Pathologist Diet Recommendation: no restrictions on diet Diet Texture: Regular Texture Diet Weigh Patient: weekly Roblero: Not applicable - Labs/Radiology BMP Date: 09/16/16 CBC Date: 09/16/16 CMP Date: 09/16/16 Other Lab Name, Date and Time: [place] level 09/16/16 - Follow Up Care Current Providers and Referrals: Vahe Velasquez MD [Primary Care Provider] - As per Instructions
--- NOTE | 2016-09-17 18:45 | GDS ---
[f rep st] DISCHARGE SUMMARY REASON FOR ADMISSION: Fall. DISCHARGE DIAGNOSIS: Fall secondary to generalized weakness. SECONDARY DIAGNOSES: Include: OCD, depression, probable bipolar 2 depression. HOSPITAL COURSE: The patient was admitted after the fall. He had no recollection of the fall. His medications were reduced substantially and Tegretol was stopped because of his persistent hyponatre love. After Tegretol was stopped, his serum sodium corrected rapidly. Previously it was assumed dianne t the serum sodium was low due to his Prozac which he had been taking for OCD. As the serum sodium remained low despite stopping Prozac and corrected after stopping Tegretol, it is assumed that his l ow sodium was secondary to the Tegretol. When he has been on Prozac for his OCD without a mood stab ilizer, he did become quite anxious. During the course of hospitalization, he did well. His blood pressure remained controlled, his cogn ition improved. He is being discharged to [facility] for further evaluation and treatment. /[id number]/MODL
== END 2016-09-15 15:47 | DRG 948 ==
LOC: EDUNIT# → F3N 18:33
PROVIDERS: ADMIT Internal Medicine; ATTEND Internal Medicine
DX: R53.1 Weakness (principal); E87.1 Hypo-osmolality and hyponatremia; R26.9 Unspecified abnormalities of gait and mobility; R41.3 Other amnesia; I10 Essential (primary) hypertension; F42.8 Other obsessive-compulsive disorder; F31.9 Bipolar disorder, unspecified; E03.9 Hypothyroidism, unspecified; W19.XXXA Unspecified fall, initial encounter; Y92.129 Unspecified place in nursing home as the place of occurrence of the external cause; Z85.46 Personal history of malignant neoplasm of prostate
CPT/HCPCS: 82947-QW; 92523-GN; 97116-GP; 97161-GP; 97166-GO; 97530-GO; 97530-GP; 97535-GO; G8978-GP-CK; G8979-GP-CJ; G8987-GO-CL; G8988-GO-CJ; G9168-GN-CJ; G9169-GN-CJ; G9170-GN-CJ

== ENCOUNTER 2016-09-15 16:16 | Inpatient (IN) | payer OTHER ==
[2016-09-15] MEDS ORDERED: MAG HYDROX/AL HYDROX/SIMETH 30 ML UDCUP PO PRN (17:16)
[2016-09-15] MEDS ORDERED: BISACODYL 10 MG SUPP PR PRN (17:16)
--- NOTE | 2016-09-15 17:54 | PDOREHIP ---
Admission [facility] - Admission - 3 Day Assessment Period Admission Date/Day 1: 09/15/16 Day 2: 09/16/16 Day 3: 09/17/16 - Active Diagnoses Comorbidities and Co-existing Conditions at Admission: 55451. None of the Above - Skin Conditions Unhealed Pressure Ulcer (1 or more/Stage 1 or >)-Admission: 0. No
--- NOTE | 2016-09-15 19:23 | GHP ---
[f rep st] HISTORY AND PHYSICAL POST ADMISSION PHYSICIAN EVALUATION AND REHABILITATION TREATMENT PLAN DATE OF ADMISSION: 09/15/2016 DATE OF EVALUATION: 09/15/2016 TIME OF EVALUATION: 5:00 p.m. REFERRING FACILITY: [facility] DATE OF ONSET: 09/12/2016 REFERRING PHYSICIAN: Vahe Velasquez MD REHABILITATION DIAGNOSIS: Debility. IMPAIRMENT GROUP/ETIOLOGIC DIAGNOSIS: 16 - debility. DATE OF SURGERY: Not applicable. HISTORY OF PRESENT ILLNESS: This is a 75-year-old male with multiple medical diagnoses including the recent onset and worsening of weakness, depression with questionable history of bipolar II with mixed anxiety, depression and OCD, as well as a history of prior head injury and memory problems, who had an unwitnessed fall on 09/12/2016 in the setting of gradually worsening weakness, urinary incontinence, difficulty walking, tremor, and worsening cognition over the past several months. He was admitted for further evaluation at [facility]. His hospital course was very short and relatively unremarkable. He was evaluated by PT and OT, and found to be a good rehab candidate. He also as an inpatient had his lithium increased and also increased his Prozac. They were keeping him off Tegretol and gabapentin. They were considering making further adjustments to his medications and also stopped Flomax because of labile blood pressure. On discussion with the patient today, he does not recall the fall that happened on 09/12/2016. He did not have any other acute injuries. He does endorse that he has had a gradually worsening gait, urinary incontinence and tremor, as well as worsening memory over the last several months leading up to the fall. He endorses that his OCD symptoms are primarily a history of significant handwashing, and he is very forthcoming about his mental illness and how it might affect his rehab course, and he is eager to work with caregivers on this issue. No reason for the fall was found during his hospitalization on review of the records, although there is no discharge summary available at the time of this admission to determine that for sure. FUNCTIONAL HISTORY: He was using a front-wheeled walker, was working with PT, OT and speech, and living in an assisted living facility. He was otherwise doing things independently. Now, he is contact-guard assist with most activities, and he notes that his memory is not great. He has also been noted to be impulsive. REVIEW OF SYSTEMS: He noted some worsening of vision from cataracts as well. No shortness of breath. All other systems are negative except for as described above. PRECAUTIONS: Falls. ACTIVE COMORBIDITIES: Include weakness, memory problems, and a history of hyponatremia. PAST MEDICAL AND SURGICAL HISTORY: 1. Depression with a question of bipolar II, with anxiety and depression. 2. ADD. 3. OCD. 4. Memory changes. 5. Weakness. 6. Atherosclerosis. 7. Hyperlipidemia. 8. Hypertension. 9. History of prostate cancer. 10. Hypothyroidism. 11. Cellulitis. 12. Abscess of leg. 13. Edema. 14. Hyponatremia. 15. History of anterior and posterior cervical surgery, with decreased neck movement. 16. Tonsillectomy. 17. Radical prostatectomy. 18. Hernia repair x2. FAMILY HISTORY: Prostate cancer in his brother and his father. No neurological issues in the family. He has a mother sister and aunt all with a possible bipolar history, although it is unclear at this point. SOCIAL HISTORY: Previously living in an assisted living facility, [facility], with PT, OT, and speech. 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 He is . No alcohol, tobacco, or drugs. Originally from [place]. ALLERGIES: No allergies. He gets a cough with lisinopril, but this is not an allergy. MEDICATIONS: His pre-hospital meds are significant. He does not know what they are, but on review of the record, he was takin. Acetaminophen 1300 mg p.o. t.i.d. 2. Aspirin 81 mg daily. 3. Atorvastatin 20 mg daily. 4. Cyclobenzaprine 10 mg daily. 5. Fluticasone/salmeterol 1 puff inhaled b.i.d. 6. Gabapentin 100 mg p.o. daily. 7. Lorazepam 0.5 mg p.o. q.h.s. 8. Levothyroxine 112 mcg p.o. daily. 9. Losartan 100 mg daily. 10. Magnesium oxide 400 mg daily. 11. Melatonin 3 mg p.o. q.h.s. p.r.n. 12. Olanzapine 2.5 mg p.o. daily. 13. [place]-3 fatty acid 2 grams p.o. b.i.d. 14. Pantoprazole sodium 40 mg p.o. daily. 15. Polyethylene glycol 17 grams daily p.r.n. 16. Psyllium husk 1 tab t.i.d. 17. Sennoside docusate 1 tab p.o. b.i.d. 18. Sodium chloride 1000 mg p.o. daily. 19. Tamsulosin HCl 0.4 mg p.o. daily. 20. Amlodipine 10 mg p.o. daily. 21. Bupropion SR 150 mg p.o. daily. 22. Carbamazepine ER 400 mg p.o. b.i.d. 23. Guaifenesin HCl 1 mg p.o. daily. 24. Trazodone 50 mg p.o. q.h.s. Admission medications. These are taken from the transfer summary by Dr. Velasquez and include: 1. Acetaminophen 1300 mg p.o. t.i.d. 2. Aspirin 81 mg p.o. daily. 3. Atorvastatin or Lipitor 20 mg p.o. daily. 4. Fluticasone/salmeterol 250 mcg, 1 puff inhaled b.i.d. 5. Levothyroxine 112 mcg daily. 6. Losartan 100 mg daily. 7. Magnesium oxide 400 mg p.o. daily. 8. [place]field-3 fatty acid 2 grams p.o. b.i.d. 9. Pantoprazole 40 mg p.o. daily. 10. Psyllium husk 1 tab p.o. t.i.d. 11. Amlodipine 10 mg daily. 12. Guaifenesin 1 mg p.o. daily. 13. Trazodone 50 mg p.o. q.h.s. 14. Fluoxetine 40 mg p.o. daily. 15. Calhan 450 mg p.o. b.i.d. 16. Polyethylene glycol or MiraLAX 17 grams p.o. daily p.r.n. 17. Quetiapine or Seroquel 25 mg p.o. daily. Note that there were several medication changes during acute care admission. PHYSICAL EXAMINATION: VITAL SIGNS: Please see the electronic medical record for the vital signs. GENERAL: Normally developed. He was resting in bed, in no apparent distress. Making poor eye contact. HEENT: Eyes anicteric. Pupils were equal, round, and reactive to light. Ears, nose, mouth and throat: Moist mucous membranes. Relatively normal dentition. CARDIOVASCULAR: Regular rate and rhythm. No lower extremity edema. Extremities were warm. He had no carotid bruits. RESPIRATORY: He is breathing comfortably on room air. Lungs are clear to auscultation bilaterally. No wheezes, rhonchi, or rales. GI : His abdomen was nondistended. Positive bowel sounds. No tenderness. : No Roblero in place. MUSCULOSKELETAL: No contracture noted. No gross deformities. SKIN: He had no rashes or skin breakdown noted. He did have some bruising on the left arm from IV sticks. PSYCH: He was appropriate, pleasant, and cooperative. He endorsed a normal mood. He had a fairly flat affect, poor eye contact, normal thought content, and was logical. HEME/LYMPH: No supraclavicular lymphadenopathy. He did have some bruising on his left arm as noted above. NEURO: Mental status: The patient is alert. He is oriented to self, hospital, city, month, and year, but not the date. He was off by 1 day and was oriented to the day of the week. He was able to repeat 3 words after one trial. He was not able to repeat 5 digits backwards accurately , but was able to repeat 5 digits forward. He was unable to recall 3 of 3 words after 5 minutes, even with cueing. Cranial nerves 2 through 12 were intact and symmetric bilaterally, including no diplopia. Strength was 5/5 and symmetric in the bilateral biceps and triceps. Wrist extensors with approximately 4/5 in the fingers. Abductors were 5/5 in the finger flexors. He had approximately 5/5 in the hip flexors, knee extensors, ankle dorsiflexors , plantar flexors, and EHL. Reflexes were 2+ and symmetric in the upper and lower limbs. No spasticity was appreciated. He had sensation intact to light touch in the hands and feet, with no evidence of neglect. He had a tremor on [id number] and [id number], with some difficulty with coordination of movements. Rapid alternating movements were slowed. Sitting balance was not tested, and gait was not tested either. RESULTS REVIEW: Head CT from 09/12/2016 showed severe cerebral atrophy with no acute changes. He did have large ventricles that has been stable since January 2016. There was a question from the radiologist about possible normal-pressure hydrocephalus. These images were visualized personally with no significant changes from my read from the radiology report. Additional result review showed a lithium level of 0.6 on 09/14/2016 at 4:50 a.m. Otherwise, he had a mildly elevated white count on the 2nd. Otherwise, relatively unremarkable recent labs. ASSESSMENT AND PLAN: This is a very pleasant 75-year-old male with gradual functional decline over the past 5 months or so, including tremor, difficulty walking, memory problems, and some worsening incontinence in the setting of neuroimaging that showed dilated ventricles and overall global atrophy. No acute stroke. Brought to the hospital by an acute fall with overall worsened function. There is no discharge summary to refer to at this point in the admission process, but it appears that he does have some symptoms concerning for normal-pressure hydrocephalus as pointed out by the radiologist on the MRI scan, with some concern about the radiology findings. I discussed this possibility with the patient, but also noted that he is in the right place for rehabilitation. The focus of his stay will be rehabilitation, but we will attend to this medical issue as well. That could certainly contribute to some of his functional decline. He definitely has impairments in cognition, mobility and self-care, and would need ongoing PT, OT, and speech in inpatient rehab with ongoing therapies after discharge back to his assisted living facility. We discussed the individual issues below. 1. Impairments in mobility, self-care and cognition, and concern for normal- pressure hydrocephalus: The patient does have recent decline as noted above and symptoms that could be consistent with normal-pressure hydrocephalus as well as enlarged ventricles on the MRI. At this point in the evening, I discussed the findings with the patient, and we will defer to Dr. Dong tomorrow to discuss the symptoms with Neurology or Neurosurgery for an additional consultation at his discretion. In the meantime, again for impaired mobility, self-care and cognition, we will also have him work with PT, OT, and speech for these deficits. Evaluations pending for tomorrow. 2. Hypertension: He can continue his home medications for now. He is on an JUAN DAVID inhibitor/ARB, and we will need to monitor his lithium level closely in this setting and may consider a change in medications if appropriate. 3. Mental health/mental illness: He does as noted above have a history of depression which is possibly bipolar II, with anxiety and depression, as well as obsessive-compulsive disorder. We will monitor these symptoms carefully and continue the dose of lithium as prescribed. We will monitor the lithium carefully on a daily basis, especially in the setting of being on the ARB/JUAN DAVID inhibitor as noted above. We will otherwise continue his psychiatric medications for now and have a low threshold to consult Psychiatry if necessary for additional management. 4. Urinary incontinence: We will work on timed voids for now and check post- void residuals to ensure that he is not retaining, as they did stop his alpha- blocking medications. 5. Tremor: We will continue to monitor this symptom for now. As I noted above , it may be related to an underlying diagnosis of normal-pressure hydrocephalus. If not, we will continue to consider other etiologies. Manage with therapy for now. 6. Diet: Regular with thin liquids, cardiac. 7. Code status: Full code. 8. Prophylaxis: We will do heparin 3 times a day. 9. Pain control: We are changing acetaminophen to a maximum of 3 grams per day , 1000 mg t.i.d. 10. Hyperlipidemia: Continue home therapy. 11. History of hyponatremia: We will check labs tomorrow and continue checking further if necessary. Had hyponatremia on acute care admission, improved with medication changes. 12. Estimated length of stay and disposition: Plan to discharge to [facility] where he was living prior with therapies including PT, OT, and speech in approximately 7-12 days. The patient is medically stable for participation in inpatient rehabilitation. I have reviewed the pre-admission screen, and the only relevant change that I note is that he may have symptoms that could be consistent with normal-pressure hydrocephalus which is not clear whether it has been addressed in the inpatient setting. This may complicate his rehabilitation course and may require additional consultations from Neurology and Neurosurgery. He certainly has multiple medical complications and psychological complications, and we will monitor these closely. Our goal would be to have him achieve the same level of modified independence that he had coming into the hospital where he can do most of his activities of daily living without direct assistance from others, though he will likely need ongoing assistance with his IADLs as he did previously. /[id number]/MODL MTDD
[2016-09-15] MEDS: guanFACINE HCL 1 MG TAB PO SCH (19:56)
[2016-09-15] MEDS: ATORVASTATIN CALCIUM 20 MG TAB PO SCH (19:57)
[2016-09-15] MEDS: PSYLLIUM METAMUCIL 1 PKT PO SCH (20:02)
[2016-09-15] MEDS: OMEGA-3 ETHYL EST-LOVAZA 1 GM CAP PO SCH (20:02)
[2016-09-15] MEDS ORDERED: traZODone 50 MG TAB PO SCH (21:00)
[2016-09-15] MEDS: ACETAMINOPHEN 500 MG TAB PO SCH (21:23)
[2016-09-15] MEDS: HEPARIN 5,000 UNIT/0.5 ML SYR SC SCH (21:25)
[2016-09-15] MEDS: LITHIUM CARBONATE ER 450 MG TAB PO SCH (21:25)
[2016-09-15] MEDS ORDERED: QUEtiapine FUMARATE 25 MG TAB PO SCH (21:30)
[2016-09-15] MEDS: FLUTICASONE/SALMETER 250/50MCG DISKUS IH SCH (22:01)
[2016-09-15] MEDS: IBUPROFEN 200 MG TAB PO PRN (22:52)
[2016-09-16] MEDS: LEVOTHYROXINE 112 MCG TAB PO SCH (05:08)
[2016-09-16] MEDS: HEPARIN 5,000 UNIT/0.5 ML SYR SC SCH ×2 (05:08→15:45)
[2016-09-16] MEDS: ACETAMINOPHEN 500 MG TAB PO SCH ×3 (06:29→21:31)
[2016-09-16] MEDS: OMEGA-3 ETHYL EST-LOVAZA 1 GM CAP PO SCH ×2 (07:27→19:48)
[2016-09-16 08:37] LABS: % IMMATURE GRANULYOCYTES 0.3 % (0.0-1.1); ABSOLUTE IMMATURE GRANULOCYTES 0.02 10^3/uL (0.00-0.10); ADD DIFF? NO; ADD MORPH? NO; ADD SCAN? NO; ATYPICAL LYMPHOCYTE FLAG 0 (0-99); FRAGMENT RBC FLAG 0 (0-99); HEMATOCRIT 41.8 % (40.0-51.0); HEMOGLOBIN 14.1 g/dL (13.7-17.5); LEFT SHIFT FLG 0 (0-99); LIPEMIA HEMOLYSIS FLAG 80 (0-99); MEAN CELL HEMOGLOBIN 31.1 pg (27.9-34.1); MEAN CELL HEMOGLOBIN CONCENTR. 33.7 g/dL (32.4-36.7); MEAN CELL VOLUME 92.3 fL (81.5-99.8); MEAN PLATELET VOLUME 9.5 fL (8.7-11.7); PLATELET CLUMPS FLAG 10 (0-99); PLATELET COUNT 261 10^3/uL (150-400); RED BLOOD CELL COUNT 4.53 10^6/uL (4.40-6.38); RED CELL DISTRIBUTION WIDTH 13.2 % (11.5-15.2)
[2016-09-16] MEDS: ASPIRIN 81 MG CHEWABLE TAB PO SCH (08:39)
[2016-09-16] MEDS: FLUoxetine 20 MG CAP PO SCH (08:39)
[2016-09-16] MEDS: LOSARTAN POTASSIUM 50 MG TAB PO SCH (08:40)
[2016-09-16] MEDS: MAGNESIUM OXIDE 400 MG TAB PO SCH (08:41)
[2016-09-16] MEDS: PANTOPRAZOLE SODIUM 40 MG TAB PO SCH (08:41)
[2016-09-16 09:14] LABS: ALANINE AMINOTRANSFERASE 37 IU/L (21-72); ALBUMIN 4.4 g/dL (3.5-5.0); ALKALINE PHOSPHATASE 67 IU/L (38-126); ANION GAP 13 mEq/L (8-16); ASPARTATE AMINOTRANSFERASE 28 IU/L (17-59); BILIRUBIN,TOTAL 0.5 mg/dL (0.1-1.4); CALCIUM 9.8 mg/dL (8.5-10.4); CARBON DIOXIDE 20 mEq/l (22-31); CHLORIDE 104 mEq/L (97-110); CREATININE 0.8 mg/dL (0.7-1.3); GLOMERULAR FILTRATION RATE > 60; GLUCOSE 109 mg/dL (70-100); LITHIUM 0.8 mEq/L (0.6-1.2); POTASSIUM 4.1 mEq/L (3.5-5.2); SODIUM 137 mEq/L (134-144); TOTAL PROTEIN 6.9 g/dL (6.3-8.2)
[2016-09-16] MEDS: LITHIUM CARBONATE ER 450 MG TAB PO SCH ×2 (11:52→21:30)
[2016-09-16] MEDS: FLUTICASONE/SALMETER 250/50MCG DISKUS IH SCH ×2 (11:52→21:29)
[2016-09-16] MEDS: PSYLLIUM METAMUCIL 1 PKT PO SCH ×3 (12:16→19:49)
--- NOTE | 2016-09-16 13:12 | SOAPPROG ---
SOAP Progress Note Assessment/Plan: Assessment: 75 yo M with gradual decline in function over 5 months, hospitalized after a fall on 09/12/16, with brain MRI c/o possible NPH: * Impairments in mobility, self-care and cognition, and concern for normal- pressure hydrocephalus: Symptoms that could be consistent with normal-pressure hydrocephalus as well as enlarged ventricles on the MRI. PT, OT, and speech to optimize mobility, ADLs and cognition. * Hypertension: He can continue his home medications for now. He is on an JUAN DAVID inhibitor/ARB, and we will need to monitor his lithium level closely in this setting and may consider a change in medications if appropriate. * Mental health/mental illness: He does as noted above have a history of depression which is possibly bipolar II, with anxiety and depression, as well as obsessive-compulsive disorder. Continue lithium, trazodone; unclear if guanfacine is more for mental health or hypertension. Follow lithium level and observe for S/Sx toxicity. Consider Psychiatry consult. * Urinary incontinence: We will work on timed voids for now and check post- void residuals to ensure that he is not retaining, as they did stop his alpha- blocking medications. * Tremor: We will continue to monitor this symptom for now. As I noted above, it may be related to an underlying diagnosis of normal-pressure hydrocephalus. If not, we will continue to consider other etiologies. Manage with therapy for now. * Prophylaxis: Appears to have adequate mobility. Will d/c heparin. Ambulate several times per day with nursing and therapies. * Pain control: Continue acetaminophen to a maximum of 3 grams per day, 1000 mg t.i.d. * Hyperlipidemia: Continue home therapy. * History of hyponatremia: Resolved on labs 09/16/16. Estimated length of stay and disposition: Plan to discharge to [facility] assisted living where he was living prior with therapies including PT, OT, and speech in approximately 7-12 days. 09/16/16 14:28 Subjective: C/O pain from heparin injections and would like them discontinued. O/W w/out complaint. No f/c, cough, dyspnea. Bowels moving. Reports /o urinary incontinence improved with frequent voiding 4 - 5 X/day and nocturia 1 - 2 X; reports he dribbles small amount but does not need pads other than usual briefs. Has had increased frequency of falls. Has impaired gait. Objective: Vital Signs Temp Pulse Resp BP Pulse Ox 36.4 C 73 17 147/91 H 95 09/16/16 05:31 09/16/16 09:30 09/16/16 05:31 09/16/16 09:30 09/16/16 09:30 Laboratory Results 09/16/16 05:20 09/16/16 05:20 09/15/16 09/16/16 09/17/16 05:59 05:59 05:59 Intake Total 440 300 Output Total 550 Balance -110 300 Physical Exam - Physical Exam General Appearance: WD/WN, alert, no apparent distress, obese Respiratory: normal breath sounds, No crackles, No rhonchi, No wheezing Cardiac/Chest: regular rate, rhythm, No edema Abdomen: normal bowel sounds, non-tender, soft, No distended Skin: normal color, warm/dry Neuro/Psych: alert, normal mood/affect, oriented x 3, abnormal gait (With FWW, flexed posture, narrow base, no foot drop, step-through pattern, slow pace.) ICD10 Worksheet Patient Problems: Problems Problem Status Onset Anxiety Acute Coffee ground emesis Acute Confusion Acute Expressive aphasia Acute Fall Acute Generalized weakness Acute Head injury Acute Hypertension Acute Hypochloremia Acute Hyponatremia Acute OCD (obsessive compulsive disorder) Acute Scalp laceration Acute Spinal stenosis Acute Syncope Acute TIA (transient ischemic attack) Acute
[2016-09-16] MEDS: IBUPROFEN 200 MG TAB PO PRN (14:11)
[2016-09-16] MEDS: ATORVASTATIN CALCIUM 20 MG TAB PO SCH (19:47)
[2016-09-16] MEDS ORDERED: MELATONIN 3 MG TAB PO SCH (21:00)
[2016-09-16] MEDS: traZODone 50 MG TAB PO SCH (21:32)
[2016-09-16] MEDS: guanFACINE HCL 1 MG TAB PO SCH (21:34)
[2016-09-17] MEDS: IBUPROFEN 200 MG TAB PO PRN ×2 (05:35→12:01)
[2016-09-17] MEDS: LEVOTHYROXINE 112 MCG TAB PO SCH (05:36)
[2016-09-17] MEDS: OMEGA-3 ETHYL EST-LOVAZA 1 GM CAP PO SCH ×2 (07:44→20:29)
[2016-09-17] MEDS: ACETAMINOPHEN 500 MG TAB PO SCH ×3 (08:26→20:36)
[2016-09-17] MEDS: LITHIUM CARBONATE ER 450 MG TAB PO SCH ×2 (08:27→20:30)
[2016-09-17] MEDS: ASPIRIN 81 MG CHEWABLE TAB PO SCH (08:27)
[2016-09-17] MEDS: LOSARTAN POTASSIUM 50 MG TAB PO SCH (08:28)
[2016-09-17] MEDS: FLUoxetine 20 MG CAP PO SCH (08:28)
[2016-09-17] MEDS: PANTOPRAZOLE SODIUM 40 MG TAB PO SCH (08:30)
[2016-09-17] MEDS: MAGNESIUM OXIDE 400 MG TAB PO SCH (08:30)
[2016-09-17] MEDS: FLUTICASONE/SALMETER 250/50MCG DISKUS IH SCH ×2 (08:35→20:33)
[2016-09-17] MEDS: PSYLLIUM METAMUCIL 1 PKT PO SCH ×3 (08:36→20:26)
[2016-09-17 09:16] LABS: LITHIUM 0.8 mEq/L (0.6-1.2)
--- NOTE | 2016-09-17 09:58 | SOAPPROG ---
SOAP Progress Note Assessment/Plan: Assessment: 75 yo M with gradual decline in function over 5 months, hospitalized after a fall on 09/12/16, with brain MRI c/w possible NPH: * Impairments in mobility and self-care: Initial FIM 65. SBA and cues for safety with mobility and ADLs. Posterior LOB noted with LB dressing, and decreased safety awareness. Gait not characteristic of NPH. PT, OT optimize mobility, ADLs and cognition. * Cognitive impairment: word-retrieval and fluency deficits. Impaired divided/ alternating attention, reduced speed of processing. No apathy or psychomotor slowing that would be expected with NPH. Continue TILE PRESSER. * Concern for normal-pressure hydrocephalus: Enlarged ventricles on the MRI, however gait and cognitive impairment do not appear to be characteristic. * Hypertension: Continue amlodipine, losartan; taper guanfacine towards d/c starting 09/17/16. Consider addition of B-lobito or diuretic. Continue to monitor. * Mental health/mental illness: He does as noted above have a history of depression which is possibly bipolar II, with anxiety and depression, as well as obsessive-compulsive disorder. Continue lithium, trazodone; unclear if guanfacine is more for mental health or hypertension. [place] level is stable X 2 days as of 09/17/16; will d/c repeat blood draws. Reduce fluoxetine from 40 mg QD to 20 mg QD starting 09/18/16 due to increased tremor. Psychiatry consult to clarify diagnosis and optimal treatment: d/w Dr. Child 09/18/15. * Urinary frequency/urgency: PVR not significant, though alpha-lobito was stopped in hospital. May be c/w with NPH, vs normal aging. * Constipation: will add scheduled senokot starting 09/17/16. * Tremor: May be exacerbated by fluoxetine and lithium. Interfering with ability to feed himself. * Prophylaxis: Appears to have adequate mobility. Will d/c heparin. Ambulate several times per day with nursing and therapies. * Pain control: Neck pain worsened X 1 - 2 day; h/o C-spine fusion C2 - T2. Continue acetaminophen to a maximum of 3 grams per day, 1000 mg t.i.d. Ibuprofen PRN. Asks for opiates, which he has not wanted in the past, so that he can get some sleep. Ordered oxycodone 2.5 - 5 mg Q 4 hr PRN; offer at HS; starting 09/17/16. Will not initiate tramadol with fluoxetine SSRI effect and tremor. Trial of gabapentin 300 mg TID starting 09/17/16. * Insomnia: trial of temazepam starting 09/17/16 PRN if he does not attain sleep with better pain control. Increased trazodone and trial of melatonin was unsuccessful. * Hyperlipidemia: Continue home therapy. * History of hyponatremia: Resolved on labs 09/16/16. Attended staffing, 15 min. D/W case mgmt, nursing, PT, OT, TILE PRESSER, Plan to discharge to [facility] where he was living prior with therapies including PT, OT, and speech. Discharge planned for 09/27/16. 09/17/16 13:25 Subjective: C/O neck pain - 01/20. Had poor sleep last night due to neck pain and constipation with inability to move bowels. Feels generalized weakness. Neck pain began during recent hospitalization. No f/c, cough, dyspnea. No tenderness over neck. Pain is not "like being stabbed with a knife" but more chronic in nature. Objective: Vital Signs Temp Pulse Resp BP Pulse Ox 36.4 C 65 30 H 156/85 H 93 09/17/16 07:50 09/17/16 07:50 09/17/16 07:50 09/17/16 08:28 09/17/16 07:50 Laboratory Results 09/16/16 05:20 09/16/16 05:20 09/16/16 09/17/16 09/18/16 05:59 05:59 05:59 Intake Total 440 2090 200 Output Total 550 1230 125 Balance -110 860 75 - Time Spent With Patient Time Spent With Patient: Greater than 35 minutes floor time today, including more than 50% of time in coordination of care during staffing meeting, and counseling patient. Physical Exam - Physical Exam General Appearance: WD/WN, alert, no apparent distress Neck: non-tender, supple Respiratory: normal breath sounds, No crackles, No rhonchi, No wheezing Cardiac/Chest: regular rate, rhythm, No edema Skin: normal color, warm/dry Neuro/Psych: alert, normal mood/affect, oriented x 3, speech abnormalities (word -finding difficulties), other (tremulous chin and hands) ICD10 Worksheet Patient Problems: Problems Problem Status Onset Anxiety Acute Coffee ground emesis Acute Confusion Acute Expressive aphasia Acute Fall Acute Generalized weakness Acute Head injury Acute Hypertension Acute Hypochloremia Acute Hyponatremia Acute OCD (obsessive compulsive disorder) Acute Scalp laceration Acute Spinal stenosis Acute Syncope Acute TIA (transient ischemic attack) Acute
[2016-09-17] MEDS: oxyCODONE IR 5 MG TAB PO PRN (13:39)
[2016-09-17] MEDS: GABAPENTIN 300 MG CAP PO SCH ×2 (16:42→20:30)
[2016-09-17] MEDS: traZODone 50 MG TAB PO SCH (20:28)
[2016-09-17] MEDS: SENNOSIDES 1 TAB PO SCH (20:29)
[2016-09-17] MEDS: guanFACINE HCL 1 MG TAB PO SCH (20:31)
[2016-09-17] MEDS: TEMAZEPAM 15 MG CAP PO PRN (20:37)
[2016-09-17] MEDS: ATORVASTATIN CALCIUM 20 MG TAB PO SCH (20:37)
[2016-09-18] MEDS: LEVOTHYROXINE 112 MCG TAB PO SCH (06:01)
[2016-09-18] MEDS: oxyCODONE IR 5 MG TAB PO PRN ×2 (06:04→09:53)
[2016-09-18] MEDS: OMEGA-3 ETHYL EST-LOVAZA 1 GM CAP PO SCH ×2 (07:58→20:20)
[2016-09-18] MEDS: ACETAMINOPHEN 500 MG TAB PO SCH ×3 (08:36→20:29)
[2016-09-18] MEDS: FLUoxetine 20 MG CAP PO SCH (08:36)
[2016-09-18] MEDS: PSYLLIUM METAMUCIL 1 PKT PO SCH ×3 (08:36→20:19)
[2016-09-18] MEDS: SENNOSIDES 1 TAB PO SCH ×2 (08:37→20:24)
[2016-09-18] MEDS: LITHIUM CARBONATE ER 450 MG TAB PO SCH (08:37)
[2016-09-18] MEDS: ASPIRIN 81 MG CHEWABLE TAB PO SCH (08:37)
[2016-09-18] MEDS: MAGNESIUM OXIDE 400 MG TAB PO SCH (08:37)
[2016-09-18] MEDS: LOSARTAN POTASSIUM 50 MG TAB PO SCH (08:37)
[2016-09-18] MEDS: GABAPENTIN 300 MG CAP PO SCH ×3 (08:37→20:30)
[2016-09-18] MEDS: IBUPROFEN 200 MG TAB PO PRN (08:44)
[2016-09-18] MEDS: FLUTICASONE/SALMETER 250/50MCG DISKUS IH SCH ×2 (09:52→20:19)
[2016-09-18] MEDS: POLYETHYLENE GLYCOL 3350 17 GM PKT PO PRN (16:27)
--- NOTE | 2016-09-18 18:58 | SOAPPROG ---
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 SBA and cues for safety with mobility and ADLs. Posterior LOB noted with LB dressing, and decreased safety awareness. Gait not characteristic of NPH. PT, OT optimize mobility, ADLs and cognition. * Cognitive impairment: word-retrieval and fluency deficits. Impaired divided/ alternating attention, reduced speed of processing. No apathy or psychomotor slowing that would be expected with NPH. 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 * Concern for normal-pressure hydrocephalus: Enlarged ventricles on the MRI, however gait and cognitive impairment do not appear to be characteristic. * Hypertension: Continue amlodipine, losartan; taper guanfacine towards d/c starting 09/17/16. Consider addition of B-lobito or diuretic. Continue to monitor. * Mental health/mental illness: He does as noted above have a history of depression which is possibly bipolar II, with anxiety and depression, as well as obsessive-compulsive disorder. Continue lithium, trazodone; unclear if guanfacine is more for mental health or hypertension. [place] level is stable X 2 days as of 09/17/16; will d/c repeat blood draws. Reduce fluoxetine from 40 mg QD to 20 mg QD starting 09/18/16 due to increased tremor. Psychiatry consult to clarify diagnosis and optimal treatment: d/w Dr. Child, will decrease lithium to 450 QHS from BID starting 09/19 * Urinary frequency/urgency: PVR not significant, though alpha-lobito was stopped in hospital. May be c/w with NPH, vs normal aging. * Constipation: will add scheduled senokot starting 09/17/16. * Tremor: May be exacerbated by fluoxetine and lithium. Interfering with ability to feed himself. * Prophylaxis: Appears to have adequate mobility. Will d/c heparin. Ambulate several times per day with nursing and therapies. * Pain control: Neck pain worsened X 1 - 2 day; h/o C-spine fusion C2 - T2. Continue acetaminophen to a maximum of 3 grams per day, 1000 mg t.i.d. Ibuprofen PRN. Asks for opiates, which he has not wanted in the past, so that he can get some sleep. Ordered oxycodone 2.5 - 5 mg Q 4 hr PRN; offer at HS; starting 09/17/16. Will not initiate tramadol with fluoxetine SSRI effect and tremor. Trial of gabapentin 300 mg TID starting 09/17/16. * Insomnia: trial of temazepam starting 09/17/16 PRN if he does not attain sleep with better pain control. Increased trazodone and trial of melatonin was unsuccessful. * Hyperlipidemia: Continue home therapy. * History of hyponatremia: Resolved on labs 09/16/16. Plan to discharge to [facility] living where he was living prior with therapies including PT, OT, and speech. Discharge planned for 09/27/16. Subjective: Cont. to report and RN reports worsening tremor, vocal stutter and intermittent confusion. Psych to see today, appreciate recs. No new weakness or falls. Objective: Vital Signs Temp Pulse Resp BP Pulse Ox 36.4 C 64 18 125/79 H 92 09/18/16 08:00 09/18/16 08:00 09/18/16 08:00 09/18/16 08:37 09/18/16 08:00 Laboratory Results 09/16/16 05:20 09/16/16 05:20 09/17/16 09/18/16 09/19/16 05:59 05:59 05:59 Intake Total 2090 1440 474 Output Total 1230 0485 475 Balance 860 -1535 -1 - Pending Discharge Pending Discharge Within 24 Hours: No Pending Discharge Within 48 Hours: No Physical Exam - Physical Exam General Appearance: alert, no apparent distress Neck: supple Respiratory: lungs clear, normal breath sounds Cardiac/Chest: regular rate, rhythm Abdomen: non-tender, soft Skin: warm/dry Neuro/Psych: alert, normal mood/affect, cognition abnormalities, speech abnormalities (stutter, circumlocution), No motor weakness ICD10 Worksheet Patient Problems: Problems Problem Status Onset Anxiety Acute Coffee ground emesis Acute Confusion Acute Expressive aphasia Acute Fall Acute Generalized weakness Acute Head injury Acute Hypertension Acute Hypochloremia Acute Hyponatremia Acute OCD (obsessive compulsive disorder) Acute Scalp laceration Acute Spinal stenosis Acute Syncope Acute TIA (transient ischemic attack) Acute
[2016-09-18] MEDS: ATORVASTATIN CALCIUM 20 MG TAB PO SCH (20:21)
[2016-09-18] MEDS: TEMAZEPAM 15 MG CAP PO PRN (20:21)
[2016-09-18] MEDS: guanFACINE HCL 1 MG TAB PO SCH (20:22)
[2016-09-18] MEDS: traZODone 50 MG TAB PO SCH (20:25)
[2016-09-18] MEDS ORDERED: LITHIUM CARBONATE ER 450 MG TAB PO SCH (21:00)
[2016-09-19] MEDS: LEVOTHYROXINE 112 MCG TAB PO SCH (05:19)
[2016-09-19] MEDS: POLYETHYLENE GLYCOL 3350 17 GM PKT PO PRN (07:51)
[2016-09-19] MEDS: OMEGA-3 ETHYL EST-LOVAZA 1 GM CAP PO SCH ×2 (07:51→20:23)
[2016-09-19] MEDS: PSYLLIUM METAMUCIL 1 PKT PO SCH ×3 (08:21→20:24)
[2016-09-19] MEDS: ASPIRIN 81 MG CHEWABLE TAB PO SCH (08:21)
[2016-09-19] MEDS: LOSARTAN POTASSIUM 50 MG TAB PO SCH (08:21)
[2016-09-19] MEDS: SENNOSIDES 1 TAB PO SCH ×2 (08:22→20:24)
[2016-09-19] MEDS: ACETAMINOPHEN 500 MG TAB PO SCH ×3 (08:22→22:37)
[2016-09-19] MEDS: FLUoxetine 20 MG CAP PO SCH (08:22)
[2016-09-19] MEDS: GABAPENTIN 300 MG CAP PO SCH ×3 (08:22→22:37)
[2016-09-19] MEDS: MAGNESIUM OXIDE 400 MG TAB PO SCH (08:22)
[2016-09-19] MEDS: oxyCODONE IR 5 MG TAB PO PRN ×3 (08:26→16:41)
[2016-09-19] MEDS: FLUTICASONE/SALMETER 250/50MCG DISKUS IH SCH ×2 (08:36→20:21)
--- NOTE | 2016-09-19 11:21 | SOAPPROG ---
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 SBA and cues for safety with mobility and ADLs. Posterior LOB noted with LB dressing, and decreased safety awareness. Gait not characteristic of NPH. PT, OT optimize mobility, ADLs and cognition. * Cognitive impairment: word-retrieval and fluency deficits. Impaired divided/ alternating attention, reduced speed of processing. No apathy or psychomotor slowing that would be expected with NPH. 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 * Concern for normal-pressure hydrocephalus: Enlarged ventricles on the MRI, however gait and cognitive impairment do not appear to be characteristic. * Hypertension: Continue amlodipine, losartan; taper guanfacine towards d/c starting 09/17/16. Consider addition of B-lobito or diuretic. Continue to monitor. * Mental health/mental illness: He does as noted above have a history of depression which is possibly bipolar II, with anxiety and depression, as well as obsessive-compulsive disorder. Continue lithium, trazodone; unclear if guanfacine is more for mental health or hypertension. [place] level is stable X 2 days as of 09/17/16; will d/c repeat blood draws. Reduce fluoxetine from 40 mg QD to 20 mg QD starting 09/18/16 due to increased tremor. Psychiatry consult to clarify diagnosis and optimal treatment: d/w Dr. Child, will decrease lithium to 450 QHS from BID starting 09/19 * Urinary frequency/urgency: PVR not significant, though alpha-lobito was stopped in hospital. May be c/w with NPH, vs normal aging. * Constipation: will add scheduled senokot starting 09/17/16. * Tremor: May be exacerbated by fluoxetine and lithium. Interfering with ability to feed himself. * Prophylaxis: Appears to have adequate mobility. Will d/c heparin. Ambulate several times per day with nursing and therapies. * Pain control: Neck pain worsened X 1 - 2 day; h/o C-spine fusion C2 - T2. Continue acetaminophen to a maximum of 3 grams per day, 1000 mg t.i.d. Ibuprofen PRN. Asks for opiates, which he has not wanted in the past, so that he can get some sleep. Ordered oxycodone 2.5 - 5 mg Q 4 hr PRN; offer at HS; starting 09/17/16. Will not initiate tramadol with fluoxetine SSRI effect and tremor. Trial of gabapentin 300 mg TID starting 09/17/16. * Insomnia: trial of temazepam starting 09/17/16 PRN if he does not attain sleep with better pain control. Increased trazodone and trial of melatonin was unsuccessful. * Hyperlipidemia: Continue home therapy. * History of hyponatremia: Resolved on labs 09/16/16. Plan to discharge to [facility] living where he was living prior with therapies including PT, OT, and speech. Discharge planned for 09/27/16. Subjective: No events. Doing well this a.m. No new complaints. Stable tremor and confusion, denies novel weakness. Objective: Vital Signs Temp Pulse Resp BP Pulse Ox 36.4 C 65 18 147/87 H 92 09/19/16 08:00 09/19/16 08:00 09/19/16 08:00 09/19/16 08:21 09/19/16 08:00 Laboratory Results 09/16/16 05:20 09/16/16 05:20 09/18/16 09/19/16 09/20/16 05:59 05:59 05:59 Intake Total 1440 974 790 Output Total 2975 1150 Balance -1535 -176 790 - Pending Discharge Pending Discharge Within 24 Hours: No Pending Discharge Within 48 Hours: No Physical Exam - Physical Exam General Appearance: alert, no apparent distress Neck: supple Respiratory: lungs clear, normal breath sounds Cardiac/Chest: regular rate, rhythm Abdomen: non-tender, soft Skin: warm/dry Neuro/Psych: alert, normal mood/affect, cognition abnormalities, speech abnormalities ICD10 Worksheet Patient Problems: Problems Problem Status Onset Anxiety Acute Coffee ground emesis Acute Confusion Acute Expressive aphasia Acute Fall Acute Generalized weakness Acute Head injury Acute Hypertension Acute Hypochloremia Acute Hyponatremia Acute OCD (obsessive compulsive disorder) Acute Scalp laceration Acute Spinal stenosis Acute Syncope Acute TIA (transient ischemic attack) Acute
[2016-09-19] MEDS ORDERED: MAGNESIUM CITRATE 300 ML BOTTLE PO PRN (16:03)
[2016-09-19] MEDS: MAGNESIUM HYDROXIDE 30 ML UDCUP PO PRN (16:41)
--- NOTE | 2016-09-19 17:05 | SOAPPROG ---
SOAP Progress Note Assessment/Plan: Psychiatry Consult Brief Note: 09/18/16 17:05 Psychiatry consultation for review of meds/med recommendations and dx clarification requested by primary team Dr. Dong. Patient records reviewed, seen and evaluated, and conveyed initial recommendations to Dr. Dong and covering Dr. Patient most distressed by his BUE tremor affecting ability to feed himself. 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 Admits to mild depression but no SI. No psychosis. No hiral/hypomania. Some anxiety about his limitations. Will follow up with patient tomorrow or Tuesday. Dictation to follow. -Agree with decr Prozac to 20mg. -Recommend decr Eskalith from 450mg bid to once daily and monitor tremor. May even consider holding dose entirely and monitor for any mood change and tremor improvement. [place] is primary suspect in patient's tremor, despite therapeutic level, also likely exacerbated in combination with Prozac. Tremor presently causing patient the most distress and limiting functioning. Also note NSAIDS can incr [place] concentration. Not entirely clear that patient has BMD dx. States ex- has diagnosed him and tells everyone this, but he has never received such a diagnosis officially, rather just depression/anxiety and OCD-tendencies. Seems he had been on Paxil in past, and Prozac more recently. Will cont to obtain collateral and further interview. 09/19/16 17:39 Stopped by to see patient who was finishing up dinner. He is willing to try off Eskalith for now, again doesn't feel convinced he even needs it. Still with tremor. Didn't have AM [place]. Will D/C lithium and monitor. Objective: Vital Signs Temp Pulse Resp BP Pulse Ox 36.4 C 65 18 147/87 H 92 09/19/16 08:00 09/19/16 08:00 09/19/16 08:00 09/19/16 08:21 09/19/16 08:00 Laboratory Results 09/16/16 05:20 09/16/16 05:20 09/18/16 09/19/16 09/20/16 05:59 05:59 05:59 Intake Total 7140 974 910 Output Total 4540 1230 350 Balance -1535 -176 560 Medications Generic Name Dose Route Start Last Admin Trade Name Freq PRN Reason Stop Dose Admin [place] Carbonate 450 mg 09/18/16 21:00 09/18/16 20:21 Eskalith Cr PO 03/17/17 20:59 450 mg HS SKYE Trazodone HCl 75 mg 09/16/16 15:21 09/18/16 20:25 Trazodone PO 03/14/17 20:59 75 mg HS SKYE Temazepam 15 mg 09/17/16 13:13 09/18/16 20:21 Restoril PO 03/16/17 13:12 15 mg HS PRN Sleep/Insomnia Senna 1 tab 09/17/16 21:00 09/19/16 08:22 Senokot PO 03/16/17 20:59 1 tab BID SKYE Fluticasone/Salmeterol 1 puffs 09/15/16 19:30 09/19/16 08:36 Advair IH 03/14/17 19:29 1 puffs BID@0900,1930 [facility] Levothyroxine Sodium 112 mcg 09/16/16 06:00 09/19/16 05:19 Synthroid PO 03/15/17 05:59 112 mcg DAILY06 SKYE Oxycodone HCl 2.5 - 5 mg 09/17/16 13:13 09/19/16 16:41 Oxycodone Ir PO 09/27/16 13:12 5 mg Q4HRS PRN Pain, Severe Able to Take PO [id number] Ethyl Esters 2 gm 09/15/16 19:30 09/19/16 07:51 Lovaza PO 03/14/17 19:29 2 gm BID@0730,1930 SKYE Magnesium Oxide 400 mg 09/16/16 09:00 09/19/16 08:22 Magnesium Oxide PO 03/15/17 08:59 400 mg DAILY SKYE Losartan Potassium 100 mg 09/16/16 09:00 09/19/16 08:21 Cozaar PO 03/15/17 08:59 100 mg DAILY SKYE Ibuprofen 600 mg 09/16/16 15:12 09/18/16 08:44 Motrin PO 03/14/17 18:29 600 mg Q6HRS PRN Pain, Inflammatory Guanfacine HCl 0.5 mg 09/17/16 13:01 09/18/16 20:22 Guanfacine Hcl PO 03/14/17 19:29 0.5 mg DAILY@1930 [facility] Gabapentin 300 mg 09/17/16 16:00 09/19/16 15:41 Neurontin PO 03/16/17 15:59 300 mg TID [facility] Fluoxetine HCl 20 mg 09/17/16 13:01 09/19/16 08:22 Prozac PO 03/15/17 08:59 20 mg DAILY [facility] Bisacodyl 10 mg 09/15/16 17:16 Dulcolax Rectal [place] 03/14/17 17:15 DAILY PRN Constipation Aspirin 81 mg 09/16/16 09:00 09/19/16 08:21 Aspirin PO 03/15/17 08:59 81 mg DAILY [facility] Amlodipine Besylate 10 mg 09/16/16 09:00 09/19/16 08:21 Norvasc PO 03/15/17 08:59 10 mg DAILY [facility] Acetaminophen 1,000 mg 09/15/16 22:00 09/19/16 15:41 Tylenol PO 03/14/17 21:59 1,000 mg TID [facility] Atorvastatin Calcium 20 mg 09/15/16 19:30 09/18/16 20:21 Lipitor PO 03/14/17 19:29 20 mg DAILY@1930 [facility] Discontinued Medications Generic Name Dose Route Start Last Admin Trade Name Katarina PRN Reason Stop Dose Admin [place] Carbonate 450 mg 09/15/16 21:00 09/18/16 08:37 Eskalith Cr PO 03/14/17 20:59 450 mg BID SKYE - Time Spent With Patient Time Spent With Patient: 90 min - Pending Discharge Pending Discharge Within 24 Hours: No Pending Discharge Within 48 Hours: No ICD10 Worksheet Patient Problems: Problems Problem Status Onset Anxiety Acute Coffee ground emesis Acute Confusion Acute Expressive aphasia Acute Fall Acute Generalized weakness Acute Head injury Acute Hypertension Acute Hypochloremia Acute Hyponatremia Acute OCD (obsessive compulsive disorder) Acute Scalp laceration Acute Spinal stenosis Acute Syncope Acute TIA (transient ischemic attack) Acute
[2016-09-19] MEDS: guanFACINE HCL 1 MG TAB PO SCH (20:22)
[2016-09-19] MEDS: traZODone 50 MG TAB PO SCH (20:24)
[2016-09-19] MEDS: TEMAZEPAM 15 MG CAP PO PRN (20:25)
[2016-09-19] MEDS: ATORVASTATIN CALCIUM 20 MG TAB PO SCH (21:46)
[2016-09-20] MEDS: LEVOTHYROXINE 112 MCG TAB PO SCH (05:06)
[2016-09-20] MEDS: MAGNESIUM HYDROXIDE 30 ML UDCUP PO PRN (05:53)
[2016-09-20] MEDS: OMEGA-3 ETHYL EST-LOVAZA 1 GM CAP PO SCH ×2 (07:33→19:44)
[2016-09-20] MEDS: PSYLLIUM METAMUCIL 1 PKT PO SCH ×3 (08:24→19:44)
[2016-09-20] MEDS: ACETAMINOPHEN 500 MG TAB PO SCH ×3 (08:28→22:02)
[2016-09-20] MEDS: ASPIRIN 81 MG CHEWABLE TAB PO SCH (08:29)
[2016-09-20] MEDS: GABAPENTIN 300 MG CAP PO SCH ×3 (08:29→22:03)
[2016-09-20] MEDS: FLUoxetine 20 MG CAP PO SCH (08:29)
[2016-09-20] MEDS: SENNOSIDES 1 TAB PO SCH ×2 (08:30→22:03)
[2016-09-20] MEDS: MAGNESIUM OXIDE 400 MG TAB PO SCH (08:30)
[2016-09-20] MEDS: LOSARTAN POTASSIUM 50 MG TAB PO SCH (08:30)
[2016-09-20] MEDS: FLUTICASONE/SALMETER 250/50MCG DISKUS IH SCH ×2 (08:32→19:45)
--- NOTE | 2016-09-20 12:46 | SOAPPROG ---
SOAP Progress Note Assessment/Plan: 75 yo M with gradual decline in function over 5 months, hospitalized after a fall on 09/12/16, with brain MRI c/w possible NPH: 09/30 doing a bit better off of lithium, appreciate help from psychiatry. Will check labs for other causes of cognitive dysfunction as well. Spoke at length with Dr. Child. 30 min was spent on the floor on the patient's care, the majority of which was spent in the counseling about management of psych symptoms, and the coordination of care with Dr. Child of psychiatry. Goal to decrease overall polypharmacy. * Impairments in mobility and self-care: Initial FIM 65. SBA and cues for safety with mobility and ADLs. Posterior LOB noted with LB dressing, and decreased safety awareness. Gait not characteristic of NPH. PT, OT optimize mobility, ADLs and cognition. * Cognitive impairment: word-retrieval and fluency deficits. Impaired divided/ alternating attention, reduced speed of processing. No apathy or psychomotor slowing that would be expected with NPH. Continue RISK TECH. Will check for other treatable causes of cognitive impairment. * Concern for normal-pressure hydrocephalus: Enlarged ventricles on the MRI, however gait and cognitive impairment do not appear to be characteristic. * Hypertension: Continue amlodipine, losartan; taper guanfacine towards d/c starting 09/17/16. Consider addition of B-lobito or diuretic. Continue to monitor. * Mental health/mental illness: Clarified that he does not have bipolar, but rather anxiety and depression, as well as obsessive-compulsive tendencies. Stopped lithium. unclear if guanfacine is more for mental health or hypertension. Reduced fluoxetine from 40 mg QD to 20 mg QD starting 09/18/16 due to increased tremor. Psychiatry consult to clarify diagnosis and optimal treatment: d/w Dr. Child, stopped lithium 09/19 * Urinary frequency/urgency: PVR not significant, though alpha-lobito was stopped in hospital. May be c/w with NPH, vs normal aging. * Constipation: senokot starting 09/17/16. * Tremor: May be exacerbated by fluoxetine and lithium. Interfering with ability to feed himself. Improved 09/20 off of lithium. * Prophylaxis: Appears to have adequate mobility. Will d/c heparin. Ambulate several times per day with nursing and therapies. * Pain control: Neck pain worsened X 1 - 2 day; h/o C-spine fusion C2 - T2. Continue acetaminophen to a maximum of 3 grams per day, 1000 mg t.i.d. Ibuprofen PRN. Asks for opiates, which he has not wanted in the past, so that he can get some sleep. Oxycodone 2.5 - 5 mg Q 4 hr PRN; offer at HS; starting . Will not initiate tramadol with fluoxetine SSRI effect and tremor. Trial of gabapentin 300 mg TID starting 09/17/16. * Insomnia: trial of temazepam starting 09/17/16 PRN if he does not attain sleep with better pain control. Increased trazodone and trial of melatonin was unsuccessful. * Hyperlipidemia: Continue home therapy. * History of hyponatremia: Resolved on labs 09/16/16. Plan to discharge to [facility] where he was living prior with therapies including PT, OT, and speech. Discharge planned for 09/27/16. 09/20/16 12:40 Subjective: CC: impaired cognition No acute events overnight. Pt has variable level of cognitive engagement, notes some overall symptoms are better off of lithium. DW Dr. Child Psychiatry. No new numbness, tingling, weakness or confusion. Objective: Vital Signs Temp Pulse Resp BP Pulse Ox 36.8 C 58 L 14 136/70 H 93 09/20/16 06:01 09/20/16 06:01 09/20/16 06:01 09/20/16 08:30 09/20/16 06:01 Laboratory Results 09/16/16 05:20 09/16/16 05:20 09/19/16 09/20/16 09/21/16 05:59 05:59 05:59 Intake Total 974 1150 Output Total 1150 900 200 Balance -176 250 -200 Physical Exam - Physical Exam General Appearance: alert, no apparent distress EENT: No scleral icterus (R), No scleral icterus (L) Respiratory: normal breath sounds, No respiratory distress Cardiac/Chest: normal peripheral pulses, regular rate, rhythm Abdomen: soft Skin: normal color, warm/dry Neuro/Psych: alert, other (poor eye contact), No normal mood/affect (Low mood. No SI) ICD10 Worksheet Patient Problems: Problems Problem Status Onset Anxiety Acute Coffee ground emesis Acute Confusion Acute Expressive aphasia Acute Fall Acute Generalized weakness Acute Head injury Acute Hypertension Acute Hypochloremia Acute Hyponatremia Acute OCD (obsessive compulsive disorder) Acute Scalp laceration Acute Spinal stenosis Acute Syncope Acute TIA (transient ischemic attack) Acute
[2016-09-20] MEDS ORDERED: SENNOSIDES 1 TAB PO ONE (13:52)
[2016-09-20] MEDS: guanFACINE HCL 1 MG TAB PO SCH (19:45)
[2016-09-20] MEDS: ATORVASTATIN CALCIUM 20 MG TAB PO SCH (20:58)
[2016-09-20] MEDS: TEMAZEPAM 15 MG CAP PO PRN (22:02)
[2016-09-20] MEDS: traZODone 50 MG TAB PO SCH (22:03)
[2016-09-21] MEDS: LEVOTHYROXINE 112 MCG TAB PO SCH (06:12)
[2016-09-21] MEDS: OMEGA-3 ETHYL EST-LOVAZA 1 GM CAP PO SCH ×2 (08:02→19:50)
[2016-09-21] MEDS: ACETAMINOPHEN 500 MG TAB PO SCH ×3 (08:34→21:49)
[2016-09-21] MEDS: ASPIRIN 81 MG CHEWABLE TAB PO SCH (08:36)
[2016-09-21] MEDS: FLUoxetine 20 MG CAP PO SCH (08:37)
[2016-09-21] MEDS: GABAPENTIN 300 MG CAP PO SCH ×3 (08:37→21:49)
[2016-09-21] MEDS: LOSARTAN POTASSIUM 50 MG TAB PO SCH (08:37)
[2016-09-21] MEDS: MAGNESIUM OXIDE 400 MG TAB PO SCH (08:38)
[2016-09-21] MEDS: SENNOSIDES 1 TAB PO SCH ×2 (08:39→21:49)
[2016-09-21] MEDS: PSYLLIUM METAMUCIL 1 PKT PO SCH ×4 (08:39→19:50)
[2016-09-21] MEDS: POLYETHYLENE GLYCOL 3350 17 GM PKT PO PRN (08:41)
[2016-09-21] MEDS: FLUTICASONE/SALMETER 250/50MCG DISKUS IH SCH ×2 (08:41→19:52)
[2016-09-21] MEDS: IBUPROFEN 200 MG TAB PO PRN (11:33)
--- NOTE | 2016-09-21 18:47 | SOAPPROG ---
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 SBA and cues for safety with mobility and ADLs. Posterior LOB noted with LB dressing, and decreased safety awareness. Gait not characteristic of NPH. PT, OT optimize mobility, ADLs and cognition. * Cognitive impairment: word-retrieval and fluency deficits. Impaired divided/ alternating attention, reduced speed of processing. No apathy or psychomotor slowing that would be expected with NPH. 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 * Concern for normal-pressure hydrocephalus: Enlarged ventricles on the MRI, however gait and cognitive impairment do not appear to be characteristic. * Hypertension: Continue amlodipine, losartan; D/C guanfacine 09/21/16. Consider addition of B-lobito or diuretic. Continue to monitor. * Mental health/mental illness: He does as noted above have a history of depression which is possibly bipolar II, with anxiety and depression, as well as obsessive-compulsive disorder. Continue lithium, trazodone; unclear if guanfacine is more for mental health or hypertension. [place] level is stable X 2 days as of 09/17/16; will d/c repeat blood draws. Appreciate assistance of Psychiatry. Bipolar disorder ruled out and lithium stopped; fluoxetine tapered from 40 mg to 20 mg QD. * Urinary frequency/urgency: PVR not significant, though alpha-lobito was stopped in hospital. May be c/w with NPH, vs normal aging. * Constipation: will add scheduled senokot starting 09/17/16. * Tremor: May be exacerbated by fluoxetine and lithium. Interfering with ability to feed himself. Improved with med changes. Continue to monitor. * Prophylaxis: Appears to have adequate mobility. Will d/c heparin. Ambulate several times per day with nursing and therapies. * Pain control: Neck pain worsened X 1 - 2 day; h/o C-spine fusion C2 - T2. Continue acetaminophen to a maximum of 3 grams per day, 1000 mg t.i.d. Ibuprofen PRN. Asks for opiates, which he has not wanted in the past, so that he can get some sleep. Ordered oxycodone 2.5 - 5 mg Q 4 hr PRN; offer at HS; starting 09/17/16; not used since 09/19/16. Will not initiate tramadol with fluoxetine SSRI effect and tremor. Trial of gabapentin 300 mg TID starting ; increase to 400 mg TID starting 09/21/16. * Insomnia: trial of temazepam starting 09/17/16 PRNand used QHS since initiated. Will d/w Psychiatry. Increased trazodone and trial of melatonin was unsuccessful. * Hyperlipidemia: Continue home therapy. * History of hyponatremia: Resolved on labs 09/16/16. Plan to discharge to [facility] living where he was living prior with therapies including PT, OT, and speech. Discharge planned for 09/27/16. 09/21/16 18:42 Subjective: Still with neck pain. O/W no complaints. No f/c, cough/dyspnea. Motivated with therapies. Denies urinary urgency. Objective: Vital Signs Temp Pulse Resp BP Pulse Ox 36.9 C 70 18 131/70 H 93 09/21/16 18:31 09/21/16 18:31 09/21/16 18:31 09/21/16 18:31 09/21/16 18:31 Laboratory Results 09/16/16 05:20 09/16/16 05:20 09/20/16 09/21/16 09/22/16 05:59 05:59 05:59 Intake Total 1150 940 680 Output Total 900 1300 625 Balance 250 -360 55 Physical Exam - Physical Exam General Appearance: WD/WN, alert, no apparent distress Respiratory: normal breath sounds, No crackles, No rhonchi, No wheezing Cardiac/Chest: regular rate, rhythm, No edema Skin: normal color, warm/dry Neuro/Psych: alert, normal mood/affect, oriented x 3, other (intermittent tremor moreso with action than with rest B UE) ICD10 Worksheet Patient Problems: Problems Problem Status Onset Anxiety Acute Coffee ground emesis Acute Confusion Acute Expressive aphasia Acute Fall Acute Generalized weakness Acute Head injury Acute Hypertension Acute Hypochloremia Acute Hyponatremia Acute OCD (obsessive compulsive disorder) Acute Scalp laceration Acute Spinal stenosis Acute Syncope Acute TIA (transient ischemic attack) Acute
[2016-09-21] MEDS: TEMAZEPAM 15 MG CAP PO PRN (21:47)
[2016-09-21] MEDS: ATORVASTATIN CALCIUM 20 MG TAB PO SCH (21:49)
[2016-09-21] MEDS: traZODone 50 MG TAB PO SCH (21:49)
[2016-09-22] MEDS: LEVOTHYROXINE 112 MCG TAB PO SCH (05:01)
[2016-09-22] MEDS: OMEGA-3 ETHYL EST-LOVAZA 1 GM CAP PO SCH ×2 (07:51→20:31)
[2016-09-22] MEDS: ACETAMINOPHEN 500 MG TAB PO SCH ×3 (07:51→20:38)
[2016-09-22] MEDS: FLUTICASONE/SALMETER 250/50MCG DISKUS IH SCH ×2 (07:52→20:44)
[2016-09-22] MEDS: GABAPENTIN 300 MG CAP PO SCH ×3 (07:52→20:38)
[2016-09-22] MEDS: ASPIRIN 81 MG CHEWABLE TAB PO SCH (07:52)
[2016-09-22] MEDS: FLUoxetine 20 MG CAP PO SCH (07:52)
[2016-09-22] MEDS: LOSARTAN POTASSIUM 50 MG TAB PO SCH (07:53)
[2016-09-22] MEDS: MAGNESIUM OXIDE 400 MG TAB PO SCH (07:53)
[2016-09-22] MEDS: SENNOSIDES 1 TAB PO SCH ×2 (07:53→20:32)
[2016-09-22] MEDS ORDERED: TEARS/DEXTRAN 70/HYPROMELLOSE 15 ML OPHT.BTL EACHEYE PRN (08:15)
--- NOTE | 2016-09-22 09:42 | SOAPPROG ---
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 SBA and cues for safety with mobility and ADLs. Posterior LOB noted with LB dressing, and decreased safety awareness. Gait not characteristic of NPH. PT, OT optimize mobility, ADLs and cognition. * Cognitive impairment: word-retrieval and fluency deficits. Impaired divided/ alternating attention, reduced speed of processing. No apathy or psychomotor slowing that would be expected with NPH. 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 * Hypertension: Continue amlodipine, losartan; D/C'd guanfacine 09/21/16. Consider addition of B-lobito or diuretic. Continue to monitor. * Mental health/mental illness: He does as noted above have a history of depression which is possibly bipolar II, with anxiety and depression, as well as obsessive-compulsive disorder. Continue lithium, trazodone; unclear if guanfacine is more for mental health or hypertension. [place] level is stable X 2 days as of 09/17/16; will d/c repeat blood draws. Appreciate assistance of Psychiatry. Bipolar disorder ruled out and lithium stopped; fluoxetine tapered from 40 mg to 20 mg QD.Pain control: Neck pain worsened X 1 - 2 day; h/o C- spine fusion C2 - T2. Continue acetaminophen to a maximum of 3 grams per day, 1000 mg t.i.d. Ibuprofen PRN. Asks for opiates, which he has not wanted in the past, so that he can get some sleep. Ordered oxycodone 2.5 - 5 mg Q 4 hr PRN; offer at HS; starting 09/17/16; not used since 09/19/16. Will not initiate tramadol with fluoxetine SSRI effect and tremor. Trial of gabapentin 300 mg TID starting 09/17/16; increased to 400 mg TID starting 09/21/16. * Insomnia: trial of temazepam starting 09/17/16 PRN and used QHS since initiated. Will d/w Psychiatry. Increased trazodone and trial of melatonin was unsuccessful. * Tremor: May be exacerbated by fluoxetine and lithium. Interfering with ability to feed himself. Improved with med changes. Continue to monitor. Chronic/stable conditions: * Doubt normal-pressure hydrocephalus: Enlarged ventricles on the MRI, however gait and cognitive impairment do not appear to be characteristic. Prophylaxis: Appears to have adequate mobility. Will d/c heparin. Ambulate several times per day with nursing and therapies. * Urinary frequency/urgency: PVR not significant, though alpha-lobito was stopped in hospital. May be c/w with NPH, vs normal aging. * Constipation: will add scheduled senokot starting 09/17/16. * Hyperlipidemia: Continue home therapy. * History of hyponatremia: Resolved on labs 09/16/16. Plan to discharge to [facility] living where he was living prior with therapies including PT, OT, and speech. Discharge planned for 09/27/16. 09/22/16 09:34 Subjective: Neck feels stiff this morning but not painful. Slept well. No f/c, cough, dyspnea. Objective: Vital Signs Temp Pulse Resp BP Pulse Ox 36.5 C 56 L 16 115/64 93 09/22/16 07:55 09/22/16 07:55 09/22/16 07:55 09/22/16 07:55 09/22/16 07:55 Laboratory Results 09/16/16 05:20 09/16/16 05:20 09/21/16 09/22/16 09/23/16 05:59 05:59 05:59 Intake Total 940 780 440 Output Total 1300 1275 Balance -360 -495 440 Physical Exam - Physical Exam General Appearance: WD/WN, alert, no apparent distress Neck: supple Respiratory: normal breath sounds, No crackles, No rhonchi, No wheezing Cardiac/Chest: regular rate, rhythm, No edema Skin: normal color, warm/dry Neuro/Psych: no motor/sensory deficits, alert, normal mood/affect, oriented x 3 , other (Mild tremor not interfering with eating) ICD10 Worksheet Patient Problems: Problems Problem Status Onset Anxiety Acute Coffee ground emesis Acute Confusion Acute Expressive aphasia Acute Fall Acute Generalized weakness Acute Head injury Acute Hypertension Acute Hypochloremia Acute Hyponatremia Acute OCD (obsessive compulsive disorder) Acute Scalp laceration Acute Spinal stenosis Acute Syncope Acute TIA (transient ischemic attack) Acute
[2016-09-22] MEDS: IBUPROFEN 200 MG TAB PO PRN ×2 (11:32→17:25)
[2016-09-22] MEDS: POLYETHYLENE GLYCOL 3350 17 GM PKT PO PRN (11:32)
[2016-09-22] MEDS: PSYLLIUM METAMUCIL 1 PKT PO SCH ×3 (11:34→20:32)
[2016-09-22] MEDS: MAGNESIUM HYDROXIDE 30 ML UDCUP PO PRN (17:26)
[2016-09-22] MEDS: ATORVASTATIN CALCIUM 20 MG TAB PO SCH (20:32)
[2016-09-22] MEDS: MIRTAZAPINE 15 MG TAB PO SCH (20:38)
[2016-09-23] MEDS: LEVOTHYROXINE 112 MCG TAB PO SCH (06:10)
[2016-09-23] MEDS: SENNOSIDES 1 TAB PO SCH ×2 (08:23→21:01)
[2016-09-23] MEDS: ASPIRIN 81 MG CHEWABLE TAB PO SCH (08:24)
[2016-09-23] MEDS: MAGNESIUM OXIDE 400 MG TAB PO SCH (08:24)
[2016-09-23] MEDS: GABAPENTIN 300 MG CAP PO SCH (08:24)
[2016-09-23] MEDS: FLUoxetine 20 MG CAP PO SCH (08:24)
[2016-09-23] MEDS: OMEGA-3 ETHYL EST-LOVAZA 1 GM CAP PO SCH ×2 (08:24→18:36)
[2016-09-23] MEDS: LOSARTAN POTASSIUM 50 MG TAB PO SCH (08:24)
[2016-09-23] MEDS: ACETAMINOPHEN 500 MG TAB PO SCH ×3 (08:24→21:01)
[2016-09-23] MEDS: PSYLLIUM METAMUCIL 1 PKT PO SCH ×3 (08:25→18:36)
[2016-09-23] MEDS: FLUTICASONE/SALMETER 250/50MCG DISKUS IH SCH ×2 (11:50→18:36)
--- NOTE | 2016-09-23 13:28 | SOAPPROG ---
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 SBA and cues for safety with mobility and ADLs. Posterior LOB noted with LB dressing, and decreased safety awareness. Gait not characteristic of NPH. PT, OT optimize mobility, ADLs and cognition. * Cognitive impairment: word-retrieval and fluency deficits. Impaired divided/ alternating attention, reduced speed of processing. No apathy or psychomotor slowing that would be expected with NPH. 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 * Hypertension: Continue amlodipine, losartan; D/C'd guanfacine 09/21/16. BP elevated 09/23/16; continue to monitor. Consider addition of B-lobito or diuretic. * Mental health/mental illness: History of depression, as well as obsessive- compulsive disorder. Appreciate assistance of Psychiatry. Bipolar disorder ruled out and lithium stopped; fluoxetine tapered from 40 mg to 20 mg QD. Guanfacine stopped. Trazodone and temazepam stopped. Slept well on low-dose mirtazapine without drowsiness during the day. * Pain control: Neck pain worsened X 1 - 2 day; h/o C-spine fusion C2 - T2. Continue acetaminophen to a maximum of 3 grams per day, 1000 mg t.i.d. Ibuprofen PRN. Asks for opiates, which he has not wanted in the past, so that he can get some sleep. Ordered oxycodone 2.5 - 5 mg Q 4 hr PRN; offer at HS; starting 09/17/16; not used since 09/19/16. Will not initiate tramadol with fluoxetine SSRI effect and tremor. Trial of gabapentin 300 mg TID starting ; increased to 400 mg TID starting 09/21/16. Neck pain inmproved. * Insomnia: resolved with mirtazapine starting 09/22/16. * Tremor: May be exacerbated by fluoxetine and lithium. Interfering with ability to feed himself. Improved with med changes. Continue to monitor. Chronic/stable conditions: * Doubt normal-pressure hydrocephalus: Enlarged ventricles on the MRI, however gait and cognitive impairment do not appear to be characteristic. Prophylaxis: Appears to have adequate mobility. Will d/c heparin. Ambulate several times per day with nursing and therapies. * Urinary frequency/urgency: PVR not significant, though alpha-lobito was stopped in hospital. May be c/w with NPH, vs normal aging. * Constipation: will add scheduled senokot starting 09/17/16. * Hyperlipidemia: Continue home therapy. * History of hyponatremia: Resolved on labs 09/16/16. Plan to discharge to [place] [facility] assisted living where he was living prior with therapies including PT, OT, and speech. Discharge planned for 09/27/16. 09/23/16 13:24 Subjective: Slept well. Neck feels better. Not drowsy. Objective: Vital Signs Temp Pulse Resp BP Pulse Ox 36.4 C 60 16 156/72 H 93 09/23/16 06:20 09/23/16 06:20 09/23/16 06:20 09/23/16 08:24 09/23/16 06:20 Laboratory Results 09/16/16 05:20 09/16/16 05:20 09/22/16 09/23/16 09/24/16 05:59 05:59 05:59 Intake Total 780 1152 420 Output Total 1275 1050 300 Balance -495 102 120 Physical Exam - Physical Exam General Appearance: WD/WN, alert, no apparent distress Respiratory: No respiratory distress, No accessory muscle use Cardiac/Chest: No edema Skin: normal color, warm/dry Neuro/Psych: no motor/sensory deficits, alert, normal mood/affect, other (Needs assisit to arise to seated from supine.) ICD10 Worksheet Patient Problems: Problems Problem Status Onset Anxiety Acute Coffee ground emesis Acute Confusion Acute Expressive aphasia Acute Fall Acute Generalized weakness Acute Head injury Acute Hypertension Acute Hypochloremia Acute Hyponatremia Acute OCD (obsessive compulsive disorder) Acute Scalp laceration Acute Spinal stenosis Acute Syncope Acute TIA (transient ischemic attack) Acute
[2016-09-23] MEDS: GABAPENTIN 400 MG CAP PO SCH ×2 (16:09→21:01)
[2016-09-23] MEDS: ATORVASTATIN CALCIUM 20 MG TAB PO SCH (18:36)
[2016-09-23] MEDS: MIRTAZAPINE 15 MG TAB PO SCH (21:01)
[2016-09-23] MEDS: IBUPROFEN 200 MG TAB PO PRN (22:19)
[2016-09-23] MEDS: oxyCODONE IR 5 MG TAB PO PRN (23:04)
[2016-09-24] MEDS: LEVOTHYROXINE 112 MCG TAB PO SCH (06:32)
[2016-09-24] MEDS: IBUPROFEN 200 MG TAB PO PRN (06:37)
[2016-09-24] MEDS: PSYLLIUM METAMUCIL 1 PKT PO SCH ×3 (08:28→20:20)
[2016-09-24] MEDS: OMEGA-3 ETHYL EST-LOVAZA 1 GM CAP PO SCH ×2 (08:29→20:20)
[2016-09-24] MEDS: ACETAMINOPHEN 500 MG TAB PO SCH ×3 (08:30→20:52)
[2016-09-24] MEDS: ASPIRIN 81 MG CHEWABLE TAB PO SCH (08:31)
[2016-09-24] MEDS: FLUoxetine 20 MG CAP PO SCH (08:31)
[2016-09-24] MEDS: GABAPENTIN 400 MG CAP PO SCH ×3 (08:32→20:52)
[2016-09-24] MEDS: MAGNESIUM OXIDE 400 MG TAB PO SCH (08:33)
[2016-09-24] MEDS: SENNOSIDES 1 TAB PO SCH ×2 (08:33→20:20)
[2016-09-24] MEDS: LOSARTAN POTASSIUM 50 MG TAB PO SCH (08:34)
[2016-09-24] MEDS: FLUTICASONE/SALMETER 250/50MCG DISKUS IH SCH ×2 (09:22→20:48)
--- NOTE | 2016-09-24 09:47 | SOAPPROG ---
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 SBA for mobility; supervision for ADLs except he need asistance for bathing and performs not as well when fatigued at the end of the day. Continue PT, OT optimize mobility and ADLs. Tiral of I in room during the day beginning 09/24/16. * Cognitive impairment: word-retrieval and fluency deficits. Impaired memory and new learning. Encouragedto use log book. No apathy or psychomotor slowing that would be expected with NPH. 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 * Hypertension: Continue amlodipine, losartan; D/C'd guanfacine 09/21/16. BP elevated 09/23/16 & 09/24/16. Discussed options: diuretic (1st line per guidelines) vs B-lobito (propranolol for tremor) vs alpha-lobito if there are urinary issues. He opts for diuretic. Will start HCTZ 12.5 mg today . Check BMP 09/27/16. Monitor BP. Monitor for urinary frequency. * Mental health/mental illness: History of depression, as well as obsessive- compulsive disorder. Appreciate assistance of Psychiatry. Bipolar disorder ruled out and lithium stopped; fluoxetine tapered from 40 mg to 20 mg QD. Guanfacine stopped. Trazodone and temazepam stopped. Slept well on low-dose mirtazapine without drowsiness during the day. Continue to monitor. * Pain control: Neck pain worsened X 1 - 2 day; h/o C-spine fusion C2 - T2. Continue acetaminophen to a maximum of 3 grams per day, 1000 mg t.i.d. Ibuprofen PRN. Asks for opiates, which he has not wanted in the past, so that he can get some sleep. Ordered oxycodone 2.5 - 5 mg Q 4 hr PRN; offer at HS starting 09/17/16 Will not initiate tramadol with fluoxetine SSRI effect and tremor. Trial of gabapentin 300 mg TID starting 09/17/16; increased to 400 mg TID starting 09/21/16. Neck pain improved. May benefit from manual therapy or acupuncture. * Insomnia: improved with mirtazapine starting 09/22/16. * Tremor: May be exacerbated by fluoxetine and lithium. Interfered with ability to feed himself. Improved with med changes. Continue to monitor. Chronic/stable conditions: * Doubt normal-pressure hydrocephalus: Enlarged ventricles on the MRI, however gait and cognitive impairment do not appear to be characteristic. * Prophylaxis: Appears to have adequate mobility. Will d/c heparin. Ambulate several times per day with nursing and therapies. * Urinary frequency/urgency: PVR not significant, though alpha-lobito was stopped in hospital. May be c/w with NPH, vs normal aging. * Constipation: will add scheduled senokot starting 09/17/16. * Hyperlipidemia: Continue home therapy. * History of hyponatremia: Resolved on labs 09/16/16. Attended staffing, 15 min. D/W case mgmt, nursing, P, OT, HOTBED TRANSFER OPERATOR, obstetrics and gynecology professor, pharmacy. Goal to achieve [facility] level of independence. Attended family meeting, 30 min. 2 friends were present, and sister by speaker phone. Psychologist Chelo Hanson participated in both meetings. Plan to discharge to [facility] on . 09/24/16 13:01 Subjective: C/O feeling depressed this morning. Also has neck stiffness. Slept OK though [facility] shift nurse reported he wanted a PRN sleeper, Has anxiety re moving to [facility]; thinks he'd like to stay here longer than 09/27/16. Objective: Vital Signs Temp Pulse Resp BP Pulse Ox 36.5 C 61 16 163/88 H 93 09/24/16 07:10 09/24/16 07:10 09/24/16 07:10 09/24/16 08:34 09/24/16 07:10 Laboratory Results 09/16/16 05:20 09/16/16 05:20 09/23/16 09/24/16 09/25/16 05:59 05:59 05:59 Intake Total 1152 1140 Output Total 1050 1125 Balance 102 15 - Time Spent With Patient Time Spent With Patient: Greater than 35 minutes floor time today, including more than 50% of time in coordination of care during staffing, and counseling patient during family meeting. Physical Exam - Physical Exam General Appearance: WD/WN, alert, no apparent distress, obese Respiratory: normal breath sounds, No crackles, No rhonchi, No wheezing Cardiac/Chest: regular rate, rhythm, No edema, No diastolic murmur, No systolic murmur Skin: normal color, warm/dry Neuro/Psych: alert, normal mood/affect, oriented x 3 ICD10 Worksheet Patient Problems: Problems Problem Status Onset Anxiety Acute Coffee ground emesis Acute Confusion Acute Expressive aphasia Acute Fall Acute Generalized weakness Acute Head injury Acute Hypertension Acute Hypochloremia Acute Hyponatremia Acute OCD (obsessive compulsive disorder) Acute Scalp laceration Acute Spinal stenosis Acute Syncope Acute TIA (transient ischemic attack) Acute
[2016-09-24] MEDS: HYDROCHLOROTHIAZIDE 12.5 MG CAP PO SCH (12:29)
[2016-09-24] MEDS: MIRTAZAPINE 15 MG TAB PO SCH (20:19)
[2016-09-24] MEDS: ATORVASTATIN CALCIUM 20 MG TAB PO SCH (20:20)
[2016-09-24] MEDS: oxyCODONE IR 5 MG TAB PO PRN (22:27)
[2016-09-25] MEDS: LEVOTHYROXINE 112 MCG TAB PO SCH (05:52)
[2016-09-25] MEDS: PSYLLIUM METAMUCIL 1 PKT PO SCH ×3 (08:29→20:09)
[2016-09-25] MEDS: ACETAMINOPHEN 500 MG TAB PO SCH ×3 (08:30→20:12)
[2016-09-25] MEDS: ASPIRIN 81 MG CHEWABLE TAB PO SCH (08:31)
[2016-09-25] MEDS: LOSARTAN POTASSIUM 50 MG TAB PO SCH (08:32)
[2016-09-25] MEDS: MAGNESIUM OXIDE 400 MG TAB PO SCH (08:33)
[2016-09-25] MEDS: OMEGA-3 ETHYL EST-LOVAZA 1 GM CAP PO SCH ×2 (08:33→20:09)
[2016-09-25] MEDS: GABAPENTIN 400 MG CAP PO SCH ×3 (08:34→20:10)
[2016-09-25] MEDS: FLUoxetine 20 MG CAP PO SCH (08:34)
[2016-09-25] MEDS: SENNOSIDES 1 TAB PO SCH ×2 (08:35→20:10)
[2016-09-25] MEDS: HYDROCHLOROTHIAZIDE 12.5 MG CAP PO SCH (08:35)
[2016-09-25] MEDS: FLUTICASONE/SALMETER 250/50MCG DISKUS IH SCH ×2 (10:18→20:14)
[2016-09-25] MEDS ORDERED: ALPRAZolam 0.25 MG TAB PO SCH (11:30)
--- NOTE | 2016-09-25 11:31 | SOAPPROG ---
SOAP Progress Note Assessment/Plan: Assessment: * Impairments in mobility and self-care: Initial FIM 65 on 09/17/16; gain to 74 as of 09/24/16. SBA for mobility; supervision for ADLs except he need asistance for bathing and performs not as well when fatigued at the end of the day. Continue PT, OT optimize mobility and ADLs. Tiral of I in room during the day beginning 09/24/16. * Cognitive impairment: word-retrieval and fluency deficits. Impaired memory and new learning. Encouragedto use log book. No apathy or psychomotor slowing that would be expected with NPH. 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 * Hypertension: Continue amlodipine, losartan; D/C'd guanfacine 09/21/16. BP elevated 09/23/16 & 09/24/16. Discussed options: diuretic (1st line per guidelines) vs B-lobito (propranolol for tremor) vs alpha-lobito if there are urinary issues. He opts for diuretic. Will start HCTZ 12.5 mg today . Check BMP 09/27/16. Monitor BP. BP 156/88 THIS AM. HCTZ 12.5 MG ADDED THIS AM AND MAY TAKE 5-7 DAYS TO SEE REDUCED BP. Monitor for urinary frequency. * Mental health/mental illness: History of depression, as well as obsessive- compulsive disorder. Appreciate assistance of Psychiatry. Bipolar disorder ruled out and lithium stopped; fluoxetine tapered from 40 mg to 20 mg QD. Guanfacine stopped. Trazodone and temazepam stopped. Slept well on low-dose mirtazapine without drowsiness during the day. Continue to monitor. * ANXIETY-BEGING XANAX 0.25MG BID TODAY. * Pain control: Neck pain worsened X 1 - 2 day; h/o C-spine fusion C2 - T2. Continue acetaminophen to a maximum of 3 grams per day, 1000 mg t.i.d. Ibuprofen PRN. Asks for opiates, which he has not wanted in the past, so that he can get some sleep. Ordered oxycodone 2.5 - 5 mg Q 4 hr PRN; offer at HS starting 09/17/16 Will not initiate tramadol with fluoxetine SSRI effect and tremor. Trial of gabapentin 300 mg TID starting 09/17/16; increased to 400 mg TID starting 09/21/16. Neck pain improved. May benefit from manual therapy or acupuncture. * Insomnia: improved with mirtazapine starting 09/22/16. * Tremor: May be exacerbated by fluoxetine and lithium. Interfered with ability to feed himself. Improved with med changes. Continue to monitor. Plan: 09/25/16 11:34 Subjective: He reports he is very anxious regarding upcoming transfer to [facility]. He feels somewhat depressed. He denies [place]. Objective: Vital Signs Temp Pulse Resp BP Pulse Ox 36.7 C 62 16 136/84 H 95 09/25/16 06:16 09/25/16 06:16 09/25/16 06:16 09/25/16 08:35 09/25/16 06:16 Laboratory Results 09/16/16 05:20 09/16/16 05:20 09/24/16 09/25/16 09/26/16 05:59 05:59 05:59 Intake Total 1140 910 236 Output Total 1125 2200 Balance 15 -1290 236 Physical Exam - Physical Exam General Appearance: WD/WN, alert, mild distress, anxiety EENT: PERRL/EOMI Respiratory: lungs clear, normal breath sounds Cardiac/Chest: No edema, No JVD Abdomen: non-tender, soft Skin: normal color, warm/dry Extremities: normal range of motion, normal inspection, No Cl's sign Neuro/Psych: alert, depressed affect (DECREASED LE MOTOR EXAM) ICD10 Worksheet Patient Problems: Problems Problem Status Onset Anxiety Acute Coffee ground emesis Acute Confusion Acute Expressive aphasia Acute Fall Acute Generalized weakness Acute Head injury Acute Hypertension Acute Hypochloremia Acute Hyponatremia Acute OCD (obsessive compulsive disorder) Acute Scalp laceration Acute Spinal stenosis Acute Syncope Acute TIA (transient ischemic attack) Acute
[2016-09-25] MEDS: ALPRAZolam 0.5 MG TAB PO SCH ×2 (12:19→20:10)
[2016-09-25] MEDS: ATORVASTATIN CALCIUM 20 MG TAB PO SCH (20:09)
[2016-09-25] MEDS: MIRTAZAPINE 15 MG TAB PO SCH (20:13)
[2016-09-26 05:40] VITALS: RESP 16
[2016-09-26] MEDS: LEVOTHYROXINE 112 MCG TAB PO SCH (06:08)
[2016-09-26] MEDS: PSYLLIUM METAMUCIL 1 PKT PO SCH ×3 (08:31→21:26)
[2016-09-26] MEDS: ACETAMINOPHEN 500 MG TAB PO SCH ×3 (08:32→21:22)
[2016-09-26] MEDS: OMEGA-3 ETHYL EST-LOVAZA 1 GM CAP PO SCH ×2 (08:32→21:26)
[2016-09-26] MEDS: FLUoxetine 20 MG CAP PO SCH (08:34)
[2016-09-26] MEDS: ASPIRIN 81 MG CHEWABLE TAB PO SCH (08:34)
[2016-09-26] MEDS: GABAPENTIN 400 MG CAP PO SCH ×3 (08:34→21:24)
[2016-09-26] MEDS: LOSARTAN POTASSIUM 50 MG TAB PO SCH (08:35)
[2016-09-26] MEDS: HYDROCHLOROTHIAZIDE 12.5 MG CAP PO SCH (08:35)
[2016-09-26] MEDS: SENNOSIDES 1 TAB PO SCH ×2 (08:36→21:24)
[2016-09-26] MEDS: MAGNESIUM OXIDE 400 MG TAB PO SCH (08:36)
--- NOTE | 2016-09-26 10:43 | SOAPPROG ---
SOAP Progress Note Assessment/Plan: Assessment: * Impairments in mobility and self-care: Initial FIM 65 on 09/17/16; gain to 74 as of 09/24/16. SBA for mobility; supervision for ADLs except he need asistance for bathing and performs not as well when fatigued at the end of the day. Continue PT, OT optimize mobility and ADLs. Tiral of I in room during the day beginning 09/24/16. * Cognitive impairment: word-retrieval and fluency deficits. Impaired memory and new learning. Encouragedto use log book. No apathy or psychomotor slowing that would be expected with NPH. 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 * Hypertension: Continue amlodipine, losartan; D/C'd guanfacine 09/21/16. BP elevated 09/23/16 & 09/24/16. Discussed options: diuretic (1st line per guidelines) vs B-lobito (propranolol for tremor) vs alpha-lobito if there are urinary issues. He opts for diuretic. Will start HCTZ 12.5 mg today . Check BMP 09/27/16. BP 132/90 THIS AM. HCTZ 12.5 MG ADDED THIS YESTERDAY AND MAY TAKE 5-7 DAYS TO SEE REDUCED BP. Monitor for urinary frequency. DISCUSSED WITH PATIENT THAT I DO NOT AGREE WITH D/CING HCTZ AND REVIEWED REASON WHY DR MAY STARTED THIS. D/W WITH NURSING TO COME UP WITH STRATEGY TO KEEP HIM DRY. * Mental health/mental illness: History of depression, as well as obsessive- compulsive disorder. Appreciate assistance of Psychiatry. Bipolar disorder ruled out and lithium stopped; fluoxetine tapered from 40 mg to 20 mg QD. Guanfacine stopped. Trazodone and temazepam stopped. Slept well on low-dose mirtazapine without drowsiness during the day. Continue to monitor. * ANXIETY-BEGING XANAX 0.25MG BID TODAY. * Pain control: Neck pain worsened X 1 - 2 day; h/o C-spine fusion C2 - T2. Continue acetaminophen to a maximum of 3 grams per day, 1000 mg t.i.d. Ibuprofen PRN. Asks for opiates, which he has not wanted in the past, so that he can get some sleep. Ordered oxycodone 2.5 - 5 mg Q 4 hr PRN; offer at HS starting 09/17/16 Will not initiate tramadol with fluoxetine SSRI effect and tremor. Trial of gabapentin 300 mg TID starting 09/17/16; increased to 400 mg TID starting 09/21/16. Neck pain improved. May benefit from manual therapy or acupuncture. * Insomnia: improved with mirtazapine starting 09/22/16. * Tremor: May be exacerbated by fluoxetine and lithium. Interfered with ability to feed himself. Improved with med changes. Continue to monitor. Plan: 09/25/16 11:34 09/26/16 10:40 Subjective: He wants to stop the HCTZ because it is making him urinate too much at night. He has no other c/o this am Objective: Vital Signs Temp Pulse Resp BP Pulse Ox 36.6 C 56 L 16 132/90 H 94 09/26/16 05:40 09/26/16 05:40 09/26/16 05:40 09/26/16 08:35 09/26/16 05:40 Laboratory Results 09/16/16 05:20 09/16/16 05:20 09/25/16 09/26/16 09/27/16 05:59 05:59 05:59 Intake Total 910 922 Output Total 2200 1400 400 Balance -1290 -478 -400 Physical Exam - Physical Exam General Appearance: WD/WN, alert, no apparent distress Respiratory: lungs clear, normal breath sounds Cardiac/Chest: No edema, No JVD Abdomen: normal bowel sounds, non-tender, soft Skin: normal color, warm/dry, No cyanosis Neuro/Psych: alert, normal mood/affect ICD10 Worksheet Patient Problems: Problems Problem Status Onset Anxiety Acute Coffee ground emesis Acute Confusion Acute Expressive aphasia Acute Fall Acute Generalized weakness Acute Head injury Acute Hypertension Acute Hypochloremia Acute Hyponatremia Acute OCD (obsessive compulsive disorder) Acute Scalp laceration Acute Spinal stenosis Acute Syncope Acute TIA (transient ischemic attack) Acute
[2016-09-26] MEDS: ALPRAZolam 0.5 MG TAB PO SCH ×2 (10:56→21:25)
[2016-09-26] MEDS: IBUPROFEN 200 MG TAB PO PRN (11:00)
[2016-09-26] MEDS: FLUTICASONE/SALMETER 250/50MCG DISKUS IH SCH ×2 (11:03→21:32)
[2016-09-26] MEDS: MIRTAZAPINE 15 MG TAB PO SCH (21:24)
[2016-09-26] MEDS: ATORVASTATIN CALCIUM 20 MG TAB PO SCH (21:24)
[2016-09-27] MEDS: LEVOTHYROXINE 112 MCG TAB PO SCH (05:58)
[2016-09-27] MEDS: ACETAMINOPHEN 500 MG TAB PO SCH ×3 (09:00→21:46)
[2016-09-27] MEDS: ASPIRIN 81 MG CHEWABLE TAB PO SCH (09:01)
[2016-09-27] MEDS: ALPRAZolam 0.5 MG TAB PO SCH ×3 (09:01→21:12)
[2016-09-27] MEDS: GABAPENTIN 400 MG CAP PO SCH ×3 (09:02→21:47)
[2016-09-27] MEDS: FLUoxetine 20 MG CAP PO SCH (09:02)
[2016-09-27] MEDS: LOSARTAN POTASSIUM 50 MG TAB PO SCH (09:03)
[2016-09-27] MEDS: HYDROCHLOROTHIAZIDE 12.5 MG CAP PO SCH (09:03)
[2016-09-27] MEDS: OMEGA-3 ETHYL EST-LOVAZA 1 GM CAP PO SCH ×2 (09:04→20:11)
[2016-09-27] MEDS: PSYLLIUM METAMUCIL 1 PKT PO SCH ×3 (09:04→20:12)
[2016-09-27] MEDS: MAGNESIUM OXIDE 400 MG TAB PO SCH (09:04)
[2016-09-27] MEDS: SENNOSIDES 1 TAB PO SCH ×2 (09:04→20:12)
[2016-09-27] MEDS: FLUTICASONE/SALMETER 250/50MCG DISKUS IH SCH ×2 (11:01→20:19)
[2016-09-27] MEDS: POLYETHYLENE GLYCOL 3350 17 GM PKT PO PRN (11:07)
[2016-09-27] MEDS ORDERED: traMADol 50 MG TAB PO PRN (14:26)
--- NOTE | 2016-09-27 14:26 | SOAPPROG ---
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 SBA for mobility; supervision for ADLs except he need assistance for bathing and performs not as well when fatigued at the end of the day. Continue PT, OT optimize mobility and ADLs. Trial of I in room during the day beginning 09/24/16. * Cognitive impairment: word-retrieval and fluency deficits. Impaired memory and new learning. Encouraged to use log book. No apathy or psychomotor slowing that would be expected with NPH. Continue BACK [employer]END[employer]LIND[employer]. * Hypertension: Continue amlodipine, losartan; D/C'd guanfacine 09/21/16. BP elevated 09/23/16 & 09/24/16. Discussed options: diuretic (1st line per guidelines) vs B-lobito (propranolol for tremor) vs alpha-lobito if there are urinary issues. He opts for diuretic. Started HCTZ 12.5 mg 09/24/16. BP improved, urinary issues initially have resolved. Check BMP 09/28/16. Monitor BP. * Mental health/mental illness: History of depression, as well as obsessive- compulsive disorder. Appreciate assistance of Psychiatry. Bipolar disorder ruled out and lithium stopped; fluoxetine tapered from 40 mg to 20 mg QD. Guanfacine stopped. Trazodone and temazepam stopped. Slept well on low-dose mirtazapine without drowsiness during the day. Alprazolam started by covering physician on the weekend. Encourage to reduce usage. Increase mirtazapine from 7.5 mg QHS to 15 mg QHS. Continue to monitor. * Pain control: Neck pain with h/o C-spine fusion C2 - T2. Continue acetaminophen to a maximum of 3 grams per day, 1000 mg t.i.d. Ibuprofen PRN. Does not want opiates. Trial of tramadol 50 mg QHS. Trial of gabapentin 300 mg TID starting 09/17/16; increased to 400 mg TID starting 09/21/16. Neck pain improved. May benefit from manual therapy or acupuncture. * Insomnia: improved with mirtazapine starting 09/22/16. * Tremor: Exacerbated by high-dose fluoxetine plus lithium. Interfered with ability to feed himself. Improved with med changes. Continue to monitor. Chronic/stable conditions: * Doubt normal-pressure hydrocephalus: Enlarged ventricles on the MRI, however gait and cognitive impairment do not appear to be characteristic. * Prophylaxis: Appears to have adequate mobility. Will d/c heparin. Ambulate several times per day with nursing and therapies. * Urinary frequency/urgency: PVR not significant, though alpha-lobito was stopped in hospital. May be c/w with NPH, vs normal aging. * Constipation: will add scheduled senokot starting 09/17/16. * Hyperlipidemia: Continue home therapy. * History of hyponatremia: Resolved on labs 09/16/16. Goal to achieve [facility] level of independence. Attended family meeting, 30 min. 2 friends were present, and sister by speaker phone. Psychologist Chelo Hanson participated in both meetings. Plan to discharge to [facility] on 09/29/16. 09/27/16 14:09 Subjective: C/O neck pain. Thinks it's worse in the morning. Gestures to proximal neck and back of head. Says he sleeps about 6 hours, awakens at about 4 and is unable to get back to sleep. Had urinary frequency and incontinence initially with HCTZ but that resolved. Gets discouraged re pain. Objective: Vital Signs Temp Pulse Resp BP Pulse Ox 36.6 C 63 16 148/84 H 93 09/27/16 08:00 09/27/16 08:00 09/27/16 08:00 09/27/16 09:03 09/27/16 08:00 Laboratory Results 09/16/16 05:20 09/16/16 05:20 09/26/16 09/27/16 09/28/16 05:59 05:59 05:59 Intake Total 922 750 480 Output Total 1400 1425 Balance -987 -277 186 Physical Exam - Physical Exam General Appearance: WD/WN, alert, no apparent distress, obese Respiratory: normal breath sounds, No crackles, No rhonchi, No wheezing Cardiac/Chest: regular rate, rhythm, No edema Skin: normal color, warm/dry Neuro/Psych: no motor/sensory deficits, alert, normal mood/affect, oriented x 3 , other (Ambulates with FWW, flexed posture) ICD10 Worksheet Patient Problems: Problems Problem Status Onset Anxiety Acute Coffee ground emesis Acute Confusion Acute Expressive aphasia Acute Fall Acute Generalized weakness Acute Head injury Acute Hypertension Acute Hypochloremia Acute Hyponatremia Acute OCD (obsessive compulsive disorder) Acute Scalp laceration Acute Spinal stenosis Acute Syncope Acute TIA (transient ischemic attack) Acute
[2016-09-27] MEDS: IBUPROFEN 200 MG TAB PO PRN (18:34)
[2016-09-27] MEDS: ATORVASTATIN CALCIUM 20 MG TAB PO SCH (20:11)
[2016-09-27] MEDS: MIRTAZAPINE 15 MG TAB PO SCH (20:12)
[2016-09-28] MEDS: LEVOTHYROXINE 112 MCG TAB PO SCH (06:26)
[2016-09-28 08:27] LABS: ANION GAP 14 mEq/L (8-16); CALCIUM 9.6 mg/dL (8.5-10.4); CARBON DIOXIDE 24 mEq/l (22-31); CHLORIDE 103 mEq/L (97-110); CREATININE 0.7 mg/dL (0.7-1.3); GLOMERULAR FILTRATION RATE > 60; GLUCOSE 123 mg/dL (70-100); POTASSIUM 3.8 mEq/L (3.5-5.2); SODIUM 141 mEq/L (134-144)
[2016-09-28] MEDS: PSYLLIUM METAMUCIL 1 PKT PO SCH ×3 (09:07→19:58)
[2016-09-28] MEDS: ACETAMINOPHEN 500 MG TAB PO SCH ×3 (09:08→21:58)
[2016-09-28] MEDS: ALPRAZolam 0.5 MG TAB PO SCH (09:08)
[2016-09-28] MEDS: HYDROCHLOROTHIAZIDE 12.5 MG CAP PO SCH (09:09)
[2016-09-28] MEDS: OMEGA-3 ETHYL EST-LOVAZA 1 GM CAP PO SCH ×2 (09:09→19:57)
[2016-09-28] MEDS: ASPIRIN 81 MG CHEWABLE TAB PO SCH (09:10)
[2016-09-28] MEDS: GABAPENTIN 400 MG CAP PO SCH ×3 (09:11→21:59)
[2016-09-28] MEDS: LOSARTAN POTASSIUM 50 MG TAB PO SCH (09:11)
[2016-09-28] MEDS: FLUoxetine 20 MG CAP PO SCH (09:11)
[2016-09-28] MEDS: SENNOSIDES 1 TAB PO SCH ×2 (09:12→21:59)
[2016-09-28] MEDS: MAGNESIUM OXIDE 400 MG TAB PO SCH (09:12)
[2016-09-28] MEDS: FLUTICASONE/SALMETER 250/50MCG DISKUS IH SCH ×2 (09:15→19:57)
--- NOTE | 2016-09-28 14:15 | SOAPPROG ---
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 SBA for mobility; supervision for ADLs except he needs assistance for bathing and performs not as well when fatigued at the end of the day. Continue PT, OT optimize mobility and ADLs. Trial of I in room during the day beginning 09/24/16. * Cognitive impairment: word-retrieval and fluency deficits. Impaired memory and new learning. Encouraged to use log book. No apathy or psychomotor slowing that would be expected with NPH. Continue MEDICAL [employer]IM[employer]RIST. * Hypertension: Continue amlodipine, losartan; D/C'd guanfacine 09/21/16. BP elevated 09/23/16 & 09/24/16. Discussed options: diuretic (1st line per guidelines) vs B-lobito (propranolol for tremor) vs alpha-lboito if there are urinary issues. He opts for diuretic. Started HCTZ 12.5 mg 09/24/16. BP improved, urinary issues initially have resolved. BMP 09/28/16 wnl. Monitor BP. * Mental health/mental illness: History of depression, as well as obsessive- compulsive disorder. Appreciate assistance of Psychiatry. Bipolar disorder ruled out and lithium stopped; fluoxetine tapered from 40 mg to 20 mg QD. Guanfacine stopped. Trazodone and temazepam stopped. Slept well on low-dose mirtazapine without drowsiness during the day. Alprazolam started by covering physician on the weekend; not used evening of 09/27/16 or morning of 09/28/16; will d/c. Increased mirtazapine from 7.5 mg QHS to 15 mg QHS starting 09/27/16. Continue to monitor. * Pain control: Neck pain with h/o C-spine fusion C2 - T2. Continue acetaminophen to a maximum of 3 grams per day, 1000 mg t.i.d. Ibuprofen PRN. Does not want opiates. Trial of tramadol 50 mg QHS; changed to 50 mg Q 4 hr PRN on 09/28/16. Trial of gabapentin 300 mg TID starting 09/17/16; increased to 400 mg TID starting 09/21/16. Neck pain improved. May benefit from manual therapy or acupuncture. * Insomnia: improved with mirtazapine starting 09/22/16. * Tremor: Exacerbated by high-dose fluoxetine plus lithium. Interfered with ability to feed himself. Improved with med changes. Continue to monitor. Chronic/stable conditions: * Doubt normal-pressure hydrocephalus: Enlarged ventricles on the MRI, however gait and cognitive impairment do not appear to be characteristic. * Prophylaxis: Appears to have adequate mobility. Will d/c heparin. Ambulate several times per day with nursing and therapies. * Urinary frequency/urgency: PVR not significant, though alpha-lobito was stopped in hospital. May be c/w with NPH, vs normal aging. * Constipation: will add scheduled senokot starting 09/17/16. * Hyperlipidemia: Continue home therapy. * History of hyponatremia: Resolved on labs 09/16/16. Goal to achieve [facility] level of independence. Attended family meeting, 30 min. 2 friends were present, and sister by speaker phone. Psychologist Chelo Hanson participated in both meetings. Plan to discharge to [facility] on 09/29/16. 09/28/16 14:12 Subjective: Continues to have neck pain. Tramadol last night helped him to attain sleep. Ice helps. Slept well but awoke at 0400 and did not get back to sleep. Objective: Vital Signs Temp Pulse Resp BP Pulse Ox 36.4 C 62 16 139/70 H 93 09/28/16 07:20 09/28/16 07:20 09/28/16 07:20 09/28/16 09:11 09/28/16 07:20 Laboratory Results 09/16/16 05:20 09/28/16 06:20 09/27/16 09/28/16 09/29/16 05:59 05:59 05:59 Intake Total 750 1180 900 Output Total 1425 500 500 Balance -675 680 400 Physical Exam - Physical Exam General Appearance: WD/WN, alert, no apparent distress Respiratory: normal breath sounds, No crackles, No rhonchi, No wheezing Cardiac/Chest: regular rate, rhythm, No edema Skin: normal color, warm/dry Neuro/Psych: no motor/sensory deficits, alert, normal mood/affect, oriented x 3 , abnormal gait (Flexed posture and walker out in front. Slightly wide-based, mild trendelenberg on R, step-through pattern) ICD10 Worksheet Patient Problems: Problems Problem Status Onset Anxiety Acute Coffee ground emesis Acute Confusion Acute Expressive aphasia Acute Fall Acute Generalized weakness Acute Head injury Acute Hypertension Acute Hypochloremia Acute Hyponatremia Acute OCD (obsessive compulsive disorder) Acute Scalp laceration Acute Spinal stenosis Acute Syncope Acute TIA (transient ischemic attack) Acute
[2016-09-28] MEDS: traMADol 50 MG TAB PO PRN ×2 (18:22→21:58)
[2016-09-28] MEDS: ATORVASTATIN CALCIUM 20 MG TAB PO SCH (19:57)
[2016-09-28] MEDS: IBUPROFEN 200 MG TAB PO PRN (20:15)
[2016-09-28] MEDS: MIRTAZAPINE 15 MG TAB PO SCH (21:59)
[2016-09-28 22:01] VITALS: O2SAT 92
[2016-09-29] MEDS: LEVOTHYROXINE 112 MCG TAB PO SCH (06:30)
[2016-09-29 06:41] VITALS: TEMP 97.8
[2016-09-29 08:23] VITALS: PULSE 138
[2016-09-29] MEDS: ACETAMINOPHEN 500 MG TAB PO SCH (08:23)
[2016-09-29] MEDS: FLUoxetine 20 MG CAP PO SCH (08:24)
[2016-09-29] MEDS: GABAPENTIN 400 MG CAP PO SCH (08:24)
[2016-09-29] MEDS: ASPIRIN 81 MG CHEWABLE TAB PO SCH (08:24)
[2016-09-29] MEDS: HYDROCHLOROTHIAZIDE 12.5 MG CAP PO SCH (08:25)
[2016-09-29] MEDS: MAGNESIUM OXIDE 400 MG TAB PO SCH (08:25)
[2016-09-29] MEDS: LOSARTAN POTASSIUM 50 MG TAB PO SCH (08:25)
[2016-09-29] MEDS: IBUPROFEN 200 MG TAB PO PRN (08:26)
[2016-09-29] MEDS: SENNOSIDES 1 TAB PO SCH (08:26)
[2016-09-29] MEDS: PSYLLIUM METAMUCIL 1 PKT PO SCH ×2 (08:26→12:33)
[2016-09-29] MEDS: OMEGA-3 ETHYL EST-LOVAZA 1 GM CAP PO SCH (08:26)
[2016-09-29 08:27] VITALS: BP 138/68
[2016-09-29] MEDS: traMADol 50 MG TAB PO PRN (08:34)
--- NOTE | 2016-09-29 09:02 | PDOREHIP ---
Admission [facility] - Admission - 3 Day Assessment Period Admission Date/Day 1: 09/15/16 Day 2: 09/16/16 Day 3: 09/17/16 Discharge [facility] - Discharge - 3 Day Assessment Period 2 Days Prior to Anticipated Discharge Date: 09/27/16 1 Day Prior to Anticipated Discharge Date: 09/28/16 Anticipated Discharge Date: 09/29/16 - Discharge Skin Conditions Unhealed Pressure Ulcer (1 or more/Stage 1 or >)-Discharge: 0. No
[2016-09-29] MEDS: FLUTICASONE/SALMETER 250/50MCG DISKUS IH SCH ×3 (09:57→12:43)
--- NOTE | 2016-09-29 14:06 | SOAPPROG ---
SOAP Progress Note Assessment/Plan: Psychiatry Consult Brief Note: 09/18/16 17:05 Psychiatry consultation for review of meds/med recommendations and dx clarification requested by primary team Dr. Dong. Patient records reviewed, seen and evaluated, and conveyed initial recommendations to Dr. Dong and covering Dr. Patient most distressed by his BUE tremor affecting ability to feed himself. 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 Admits to mild depression but no SI. No psychosis. No hiral/hypomania. Some anxiety about his limitations. Will follow up with patient tomorrow or Tuesday. Dictation to follow. -Agree with decr Prozac to 20mg. -Recommend decr Eskalith from 450mg bid to once daily and monitor tremor. May even consider holding dose entirely and monitor for any mood change and tremor improvement. Ferron is primary suspect in patient's tremor, despite therapeutic level, also likely exacerbated in combination with Prozac. Tremor presently causing patient the most distress and limiting functioning. Also note NSAIDS can incr Ferron concentration. Not entirely clear that patient has BMD dx. States ex- has diagnosed him and tells everyone this, but he has never received such a diagnosis officially, rather just depression/anxiety and OCD-tendencies. Seems he had been on Paxil in past, and Prozac more recently. Will cont to obtain collateral and further interview. 09/19/16 17:39 Stopped by to see patient who was finishing up dinner. He is willing to try off Eskalith for now, again doesn't feel convinced he even needs it. Still with tremor. Didn't have AM Ferron. Will D/C lithium and monitor. 09/20/16 17:00 pt seen and interviewed. endorsed still feeling depressed, in fact "weary and sad" for last couple of days more in AM, b/c was "waiting for some type of positive change" and now has "lost optimism for any positive change" due to still having BUE tremor as well as chronic pain. Educated pt that it takes time for Li to clear from system once discontinued. Pt did report sleeping well, especially with recent dose of HS Temazepam. 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 MSE: good eye contact, slowed/stuttery speech at times and with some word- finding difficulty, mood "depressed" affect dysphoric but seemed improved with engagement in conversation, no psychosis, denied SI. REC- d/c Temazepam - consider Remeron HS 7.5mg for sleep/mood -cont off Ferron -ensure TSH and B12 are WNL for cognition PHONE CALL with outpatient therapist Chelo Hanson [phone] Provides hx that she has been working with pt since 03/2015 and has been concerned about gradual cognitive decline. Also had spoken with his longtime outpt psychiatrist Dr. Javier Cox (who has over past year), and although he has not been working with him over the last several years, he stated that Mr. Rubalcava has a long-standing well established dx of major depressive d/o, also anxiety and OCD with good response to meds in the past. Has become suicidal in past, no attempts however, and no drug/etoh issues. ( which was consistent with history patient provided on initial interview). Objective: Vital Signs Temp Pulse Resp BP Pulse Ox 36.6 C 138 H 16 138/68 H 92 09/29/16 06:41 09/29/16 08:21 09/29/16 06:41 09/29/16 08:25 09/29/16 06:41 Laboratory Results 09/16/16 05:20 09/28/16 06:20 09/28/16 09/29/16 09/30/16 05:59 05:59 05:59 Intake Total 1180 1440 780 Output Total 500 1225 300 Balance 680 215 480 - Pending Discharge Pending Discharge Within 24 Hours: No Pending Discharge Within 48 Hours: No ICD10 Worksheet Patient Problems: Problems Problem Status Onset Anxiety Acute Coffee ground emesis Acute Confusion Acute Expressive aphasia Acute Fall Acute Generalized weakness Acute Head injury Acute Hypertension Acute Hypochloremia Acute Hyponatremia Acute OCD (obsessive compulsive disorder) Acute Scalp laceration Acute Spinal stenosis Acute Syncope Acute TIA (transient ischemic attack) Acute
--- NOTE | 2016-09-29 14:25 | SOAPPROG ---
SOAP Progress Note Assessment/Plan: Psychiatry Consult Brief Note: 09/18/16 17:05 90min Psychiatry consultation for review of meds/med recommendations and dx clarification requested by primary team Dr. Dong. Patient records reviewed, seen and evaluated, and conveyed initial recommendations to Dr. Dong and covering Dr. Patient most distressed by his BUE tremor affecting ability to feed himself. 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 Admits to mild depression but no SI. No psychosis. No hiral/hypomania. Some anxiety about his limitations. Will follow up with patient tomorrow or Tuesday. Dictation to follow. -Agree with decr Prozac to 20mg. -Recommend decr Eskalith from 450mg bid to once daily and monitor tremor. May even consider holding dose entirely and monitor for any mood change and tremor improvement. Castella is primary suspect in patient's tremor, despite therapeutic level, also likely exacerbated in combination with Prozac. Tremor presently causing patient the most distress and limiting functioning. Also note NSAIDS can incr Castella concentration. Not entirely clear that patient has BMD dx. States ex- has diagnosed him and tells everyone this, but he has never received such a diagnosis officially, rather just depression/anxiety and OCD-tendencies. Seems he had been on Paxil in past, and Prozac more recently. Will cont to obtain collateral and further interview. 09/19/16 17:39 5 min Stopped by to see patient who was finishing up dinner. He is willing to try off Eskalith for now, again doesn't feel convinced he even needs it. Still with tremor. Didn't have AM Castella. Will D/C lithium and monitor. 09/20/16 17:00 35min pt seen and interviewed. endorsed still feeling depressed, in fact "weary and sad" for last couple of days more in AM, b/c was "waiting for some type of positive change" and now has "lost optimism for any positive change" due to still having BUE tremor as well as chronic pain. Educated pt that it takes time for Li to clear from system once discontinued. Pt did report sleeping well, especially with recent dose of HS Temazepam. Explained that this med would not be beneficial correction due to habituation and adverse cognitive effects of BZD. MSE: good eye contact, slowed/stuttery speech at times and with some word- finding difficulty, mood "depressed" affect dysphoric but seemed improved with engagement in conversation, no psychosis, denied SI. REC- d/c Temazepam - consider Remeron HS 7.5mg for sleep/mood -cont off Castella -ensure TSH and B12 are WNL for cognition PHONE CALL on 09/20/16 with outpatient therapist Chelo Hanson [phone] x 25min Provides hx that she has been working with pt since 03/2015 and has been concerned about gradual cognitive decline. Also had spoken with his longtime outpt psychiatrist Dr. Javier Cox (who has over past year), and although he has not been working with him over the last several years, he stated that Mr. Rubalcava has a long-standing well established dx of major depressive d/o, also anxiety and OCD with good response to meds in the past. Has become suicidal in past, no attempts however, and no drug/etoh issues. ( which was consistent with history patient provided on initial interview). 09/29/16 14:07 40min Pt seen this AM, and discussed case with Dr. Dong. Notably improved, with resolution of BUE tremor, and normal speech fluency. Admits feeling "apprehensive, anxious, depressed, and sad" . States this is b/c he "moved a lot over the past year", having to give up his home and now at [place] assisted living, "in a small room" Also counts his hospitalizations in his "frequent" moves. Hopes for more stability and a feeling of belonging. "I want to belong someplace". Discussed getting involved in community activities at [place]. States his sister and brother are coming to town this weekend to help him move belongings into his room at [place]. States "maybe this is as much as I can expect of my life moving forward, I've had 75 good years..." " Part of me wants to lay down and cry (not ), but that will do no good". Does feel continuing to work with therapist as outpatient will be helpful, also is open to talking with a slasher sawyer or other spiritual support. [place], but happy to have their support. Admits resolution of tremor was very beneficial in helping him return to new baseline. Still with some back and neck pain but with new prn rx for Tramadol which he will try. Consistently denies any SI, active or passive. States ending his life is "never " an option for him. Denied any psychotic sxs. No manic/hypomanic sxs. MSE: casually dressed, sitting at dining table, engaged, pleasant, good eye contact, nml psychomotor activity, no tremor BUE, nml rate/vol speech, awaiting someone to come give him a haircut as scheduled for this AM, mood "apprehensive, anxious, depressed and sad", affect dysthymic and mildly anxious but appropriate to content of conversation and future-oriented. denied any SI as noted, no psychotic sxs, linear thoughts and reality-based, conversationally cognitively intact. Rec- Continue off Castella. No mood stabilizers indicated as patient without hx of BMD. Avoid Bzd, narcotics, anticholinergics as these would adversely affect cognition which is already overall decreased from baseline. Cont Prozac 20mg. This may have room for adjustment at a later date, but would monitor for hyponatremia/SIADH, also increased SSRI dose can cause apathy which would adversely affect his engaging in own self-care and with the surrounding community/activities and therefore worsen his depression. Anxiety seems to lessen with supportive therapy. Patient repeatedly expressed desire to "belong" somewhere, in a community and to have a stable living situation. Anticipate anxiety will remain heightened as he continues with upcoming transitions of returning to [place], and siblings coming to help him move belongings, but patient remains committed to work with outpatient therapist on anxiety/depression and continue with current meds, and to explore engaging in activities available at his residential community setting. Continue with Remeron at 15mg. Recently increased to this dose, so no further changes needed for now. Also lower dose is more effective for sleep (loses sedative s/e at higher dosing). Recommend resume outpatient therapy, weekly at minimum for now. Also will need to establish with an outpatient psychiatrist for ongoing followup of medications as adjustments. [place] to be stable from psychiatric perspective for discharge. If depression worsens and any safety issues (suicidality) arise, would need evaluation for inpatient geriopsychiatry unit or consider consultation for ECT. Phone call to therapist Chelo Hanson to update, and she will meet with patient tomorrow. Left msg for PCP. Objective: Vital Signs Temp Pulse Resp BP Pulse Ox 36.6 C 138 H 16 138/68 H 92 09/29/16 06:41 09/29/16 08:21 09/29/16 06:41 09/29/16 08:25 09/29/16 06:41 Laboratory Results 09/16/16 05:20 09/28/16 06:20 09/28/16 09/29/16 09/30/16 05:59 05:59 05:59 Intake Total 1180 1440 780 Output Total 500 1225 300 Balance 680 215 480 - Time Spent With Patient Time Spent With Patient: 45min - Pending Discharge Pending Discharge Within 24 Hours: Yes Pending Discharge Date: 09/29/16 Pending Discharge Time: 15:00 ICD10 Worksheet Patient Problems: Problems Problem Status Onset Anxiety Acute Coffee ground emesis Acute Confusion Acute Expressive aphasia Acute Fall Acute Generalized weakness Acute Head injury Acute Hypertension Acute Hypochloremia Acute Hyponatremia Acute OCD (obsessive compulsive disorder) Acute Scalp laceration Acute Spinal stenosis Acute Syncope Acute TIA (transient ischemic attack) Acute
--- NOTE | 2016-09-29 18:54 | BCON ---
[f rep st] BEHAVIORAL HEALTH CONSULTATION PSYCHIATRIC CONSULTATION NOTE REFERRING PHYSICIAN: Mikey Dong MD DATES OF SERVICE: The initial date of service 09/18/2016. This dictation incorporates follow-up visits on 09/20/2016 and 09/29/2016. REASON FOR CONSULTATION: Question to clarify psychiatric diagnosis and make medication recommendations to optimize treatment. 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 He was initially admitted to [facility] ( [facility]) [facility] for acute stabilization, then transferred to inpatient acute rehabilitation on 09/15/2016 for further evaluation and stabilization. While at [facility], his lithium was increased and also his Prozac. Tegretol and gabapentin were discontinued. The patient did not recall the fall on 09/12/2016 , but was quite distressed about his decline in functioning, notably his increased limitation for independent feeding due to worsening bilateral upper extremity tremor. On evaluation, he states his understanding for psychiatric consultation request to be that his rehabilitation physician "wants you to see if a number of things that happened recently are connected to the medications I' ve been on for the last few years or weeks." He does note Matthews was a relatively newer medication. His primary complaint from all other chronic and acute issues to Psychiatry was tremors and inability to feed himself due to his tremors. He reports depression has been longstanding and chronic, as well as anxiety and OCD. An additional problem is worsening neck pain over the past 1-2 years, which he felt related to decreased sleep and increased anxiety. He listed compensatory feeding strategies he attempted to engage in due to his tremor. His own perception of worsening tremor was feeling somehow his medication changes over the last 1-2 months were related. He was unable to state what medications were changed, although did report lithium was relatively newer. He felt that since he had so many different medications, he was leaving it up to his providers to make adjustments, knowing that sometimes it takes some time to find the right combination of medications. PSYCHIATRIC HISTORY: The patient reports no prior history of bipolar mood disorder, stating, "This diagnosis somehow recently showed up in my history, I think it was because my ex- told my doctors I have bipolar," and that "she insists this is what I have because she has a masters in counseling". 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 Sometimes he would buy needed office supplies in bulk, which his thought was excessive, but he states this was not unreasonable, rather he would buy in bulk so he wouldn't run out for a long time. Admits to a long history of being diagnosed with depression, generalized anxiety disorder and obsessive-compulsive disorder, and having been treated for many years for these symptoms. He has seen counselors, psychologists and therapists on and off throughout the years primarily for depression, generalized anxiety and OCD, as well as marital discord. Previous psychiatric treatment had been with Dr. Cox, whom he had seen for several years, but not for several years. Since March 2015 he has been seeing a therapist, Chelo Hanson , quite regularly. The patient reports a long history of being on different antidepressant medications, with short courses of benzodiazepines, including Ativan and Valium. He recalls primarily being on Paxil, Prozac and Trazodone over the years. He has never been psychiatrically hospitalized. He has never made any suicide attempts and denies ever having any "serious suicidal ideation, " but has had passive suicidal ideation at times when feeling very depressed. MEDICATIONS: Currently include amlodipine, aspirin, Lipitor, Prozac 20 mg daily (recently decreased from 40 mg daily due to tremor), gabapentin, guaifenesin, Synthroid, Eskalith 450 mg twice daily, Cozaar, magnesium oxide, omega-3, oxycodone p.r.n., temazepam 15 mg at bedtime p.r.n., trazodone 75 mg p.o. at bedtime p.r.n. Prior home psychiatric medications included trazodone 50 mg p.o. at bedtime, Lithobid 450 mg twice daily, Prozac 40 mg daily, olanzapine 2.5 mg daily, bupropion SR 150 mg daily, carbamazepine ER 400 mg p.o. twice daily. There were several medication changes during his acute care admission prior to admission to acute rehab. PAST MEDICAL HISTORY: Please refer to electronic medical records for further details. In brief, current concerns were for rule out normal pressure hydrocephalus, as patient had recent decline in functioning and symptoms that could be consistent with NPH, as well as enlarged ventricles noted on brain MRI. Hypertension, urinary incontinence and tremor. Chronic pain, hyperlipidemia and history of hyponatremia possibly related to SSRI. Head CT from 09/12/2016 showed severe cerebral atrophy. No acute changes. Large ventricles, stable since January 2016. Matthews level was 0.6 on 09/14/2016. SOCIAL HISTORY: The patient reports being twice and twice to the same person. He states they have been together since their late teens " never able to get along, but never able to do without each other." He states she has been a consistent support for him. He notes he has been supportive of her as well, and discussed her history of previous psychiatric issues and hospitalizations over the years. 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 Notes difficulty with word-finding and stuttering also being very troubling to him since "I'm not an articulate person" at baseline. He has recently been living in independent living at [facility] and it has been quite a transition for him to leave his home due to his declining ability to fully take care of himself. MENTAL STATUS EXAM: The patient was a pleasant 75-year-old male, balding, with a full white ferrell, in wheelchair, with good eye contact, engaging and smiling appropriately. Speech notable for some word-finding difficulties at times, and occasional stuttering, almost a mild tremulous voice. Normal psychomotor activity, although with notable bilateral upper extremity hand tremors. Speech was articulate. Patient occasionally made jokes. He denied any delusions. No auditory or visual hallucinations. Not responding to internal stimuli. The patient denied any history of psychosis as well. Mood was depressed and anxious. Affect was appropriate range, although appearing dysphoric as he discussed his physical limitations of tremor and chronic pain. Thought process also notable for frequent digressing into long stories from the past, over inclusive with detail, including past stories about his , and and legal service. He was redirectable, however. He denied any suicidal ideation. He denied any thoughts of harming others. He endorsed occasional passive suicidal ideation when focusing on a progressive loss of independence and again related to tremor and difficulty feeding himself. Insight was good. Cognition was conversationally intact. However, the patient did have some memory deficits notable regarding details of his more recent. REVIEW OF SYSTEMS: Psychiatrically, the patient admits feeling depressed and struggling with anxiety. Also, insomnia has been problematic, although he denies any sleep apnea symptoms and thinks he does occasionally snore. He denies feeling hopeless or worthless, but occasionally feels helpless. He denied anhedonia, he is "glad to wake up every morning," but does feel depressed more days than not overall. Sleep is not good without medications. He describes himself generally as optimistic, but admits, "It's harder to be so" as before. He denied nightmares or flashbacks, although does report having been involved in a lot of violent situations and exposure to traumatic situations both in his line of work as well as having been involved for years in the just prior to the [place] War. As noted, sleep has been problematic. Even with medications, he reports getting up to 3 times a night to urinate, which has worsened over the years after surgery. He does try to limit fluids. Appetite has been decreased, but he states this is in a conscious attempt to not eat or drink too much so he does not urinate at night and also wants to not gain weight. He denied any notable weight loss. Energy is "okay." Motivation has been low. He typically enjoys reading, but has not been doing so because of limitations related to tremor and inability to hold a book or magazine. Also, cataracts interfere with reading. He reports generally passing the time by "I lie down, think and don't do much." Also adds "I quit following politics after Trump got elected." Also, back and neck pain overall increased when he is sitting or looking down to try to read. Lying down helps his pain. He reports chronic anxiety, having been diagnosed with generalized anxiety disorder and also obsessive compulsive disorder tendencies. He generally reports drinking 3 or 4 coffees per day, with the last intake around 10:00 p.m., but has not been drinking caffeine since in the hospital (the patient was educated on caffeine effects on sleep, nocturia, and anxiety). The patient denied any manic or hypomanic symptoms. He denied any psychotic symptoms. He denied any suicidal ideations or thoughts to harm others. He "would never" attempt to harm himself because the consequences he has experienced throughout his line of work and seeing people who have done so and working with families who have experienced such tragedy. At most, when very depressed, he has passive suicidal ideation, but again, never any thoughts to harm himself. ASSESSMENT: A 75-year-old male with multiple medical problems, on inpatient rehab, with history of traumatic brain injury, also global atrophy and enlarged ventricles on brain MRI, chronic back pain in a wheelchair, with a long history of depression and anxiety, as well as obsessive compulsive disorder, and fairly recently started on medications for possible bipolar mood disorder, notably lithium. The patient reports chronic depression and anxiety, but more acutely worsened related to increasing physical debility with bilateral upper extremity tremor affecting ability to feed himself and therefore further threatening further loss of independence. Tremor also seems to be affecting his communication, with difficulty in speech and feeling his thinking has slowed/ worsened over the recent past. He acknowledges multiple medication changes, but is unaware exactly of which medicines could be affecting him. He does feel like things have worsened since on lithium. Given no clear history of bipolar mood disorder, this being a relatively newer diagnosis and given the patient's clinical symptoms, suspect lithium as primary culprit in causing tremor, even at therapeutic level. Also, lithium and Prozac interactions can contribute to worsening extrapyramidal symptoms. Matthews level may be affected by ibuprofen and medications for blood pressure, as well as any dehydration especially if the patient is having difficulty drinking and eating due to his tremor. RECOMMENDATIONS: 1. Discontinue lithium and monitor. May take several days to fully clear due to lithium's half life. I would hope for improvement over the next week regarding tremor. Agree with decreasing Prozac from 40 to 20 mg. 2. It seems the patient has had hyponatremia issues recently and in the past, which can be caused by SSRIs, as SSRIs can cause SIADH. Of note, high doses of SSRIs can contribute to apathy, which can affect patient motivation for self- care and participation in necessary therapies for his improvement in rehab. Currently on trazodone. Okay to continue this for now, but would look at simplifying medication regimen, using something such as melatonin for sleep or maybe even mirtazapine to help with depression and insomnia at very low dose. Would only make 1 or 2 medication changes at a time, however, in order to separate effects. 3. Would avoid any benzodiazepines or necessary narcotic medications, as these can have adverse cognitive effects. Phone call from Chelo Hanson, outpatient psychologist, who has been working with this patient since March 2015. Chelo reports seeing the patient as frequently as weekly. States his prior psychiatrist was Dr. Simon Cox who suddenly a few months ago, but she did have an opportunity to speak with him before his untimely passing. Apparently Dr. Cox has been seeing the patient for many years, although had not seen him in about 10 years. Outpatient psychiatrist told therapist Chelo that the patient has a "well-established diagnosis of major depressive disorder," occasionally becoming serious to the point of having suicidal ideation, but no prior suicide attempts, and he has had good response to medication. Diagnoses also include anxiety disorder and OCD. He has a good history of being medication compliant and no drugs or alcohol in his history. States that the psychiatrist told Chelo that the patient did not have bipolar disorder diagnosis. Per the therapist, she has had concerns about progressive organic decline, which seemed previously more subtle but more obvious recently. He has refused formal cognitive testing. He started having falls less than a year ago and has been living in assisted living. She recalls that he had difficulty with motivation and initiative to actually implement things they discussed and coping strategies they discussed in therapy. He has been struggling with depression, isolation, a narrow focus on his life, chronic pain and loss of purpose since retiring which he previously found in his career. He does have dedicated friends, and sees her regularly for therapy, which he has found helpful. Follow-up visit 09/20/2016. The patient was seen for 45min. He reported feeling "weary and sad" over the last couple days, notably in the morning, hoping for some type of positive change which had not occurred yet. He still had slowed halting speech somewhat steadily with word finding difficulties and a depressed mood, but was engaged with good eye contact and appropriate affect to content conversation, no psychosis and denied any suicidal ideation. He was hopeful stopping lithium 2 days ago wound have a marked improvement by this time, but since this had not happened "I lost optimism for any positive change." Explained to the patient that medication changes take time to cause effect, especially a gradual decreasing lithium level due to its half life. He did report sleeping well "for the first time in a long while," with recent use of temazepam. Discussed with the patient this is not recommended for long-term use due to its addictive tendencies and negative impact on cognitive function. Preferentially, a medication such as mirtazapine would be beneficial for both mood and sleep. The patient again mentioned feeling his pain was "not in great control," but recognizes his inpatient team is working on this. Regarding anxiety, he does admit ruminating and worrying a lot, feeling his physical situation is the primary culprit for worsening anxiety and his inability to fix things, which he normally has been able to do in the past. He denied any psychotic symptoms. He again denied any hiral or hypomania symptoms. He reports occasional passive suicidal ideation, but not presently, not recently, and "would never" do anything to harm himself. Follow-up visit September 29, 2016 for 40 minutes. The patient admitted having anxiety about discharge back to [facility], but also acknowledged that his tremor has resolved and speech was notably back to normal, with no halting speech or tremulousness noted in his voice. He reported sleeping well. Has had recent increase of Mirtazapine from 7.5 to 15 mg. He has not had any adverse effects from this medication. The patient reports mood still depressed, anxious, focusing mainly on "I need a home." He does describe mood as "apprehensive, anxious, depressed and sad," focusing on having moved a lot over the past year and now he will be living at [facility] in a "small room." He does acknowledge looking forward to his sister and brother coming into town this weekend to help him with moving. He states he is "tired of moving," including from different residents from his home to rehab, to inpatient hospital, several hospitalizations, as well as to independent living, hoping that he does not have to continue doing so and can actually "belong someplace." Neck and lower back still cause problems with pain. These have been being managed by inpatient rehab with some medicine changes. He does want to continue working with his outpatient therapist, Jesus Hanson. He feels she has been helpful for his anxiety and very supportive as well as realistic. He denied having suicidal ideation. No psychosis. No hiral or hypomania symptoms. Speech was normal rate and volume, articulate. Good eye contact. Full range affect. Denied any auditory or visual hallucinations. Cognition was conversationally intact, although with impairment in prior history of formal testing. The patient is looking forward to getting a haircut prior to discharge. RECOMMENDATIONS: -It was discussed that no further psychiatric medication changes are recommended at this time. Suspect there are some underlying chronic personality issues, as well as his generalized anxiety and chronic depression. -Again, recommend continuing to avoid any medications which could worsen the patient's cognition, including benzodiazepines or unnecessary narcotics or anticholinergics. -Would continue with Prozac at 20 mg and mirtazapine at 15 mg. No indication for any medications for bipolar mood disorder, as this is not his diagnosis and would cause more problems than benefit. -Recommend follow up with outpatient therapist, Dr. Chelo Hanson, , at least weekly. Possibly would consider twice weekly for the first couple weeks if this is possible. -Formal neuropsychological testing could be helpful as outpatient to establish a cognitive baseline -Continue to follow up with outpatient primary care provider, Dr. Arnel Spann , . -The patient will need an outpatient psychiatrist who takes Medicare and can continue to work with patient's psychiatric medications. -Recommend getting engaged in independent living activities if available, also spiritual support as patient expressed interest in this. -If depression worsens and becomes severe to the point of impairing functioning and safety, could consider consultation for ECT with Dr. Vanegas or Dr. Early at [facility]. Also, would consider inpatient geriatric psychiatric hospitalization at that point, if indicated. Thank you for allowing me to consult on this patient. /[id number]
--- NOTE | 2016-09-30 15:01 | GDS ---
[f rep st] DISCHARGE SUMMARY ADMITTING DIAGNOSIS: Debility. DISCHARGE DIAGNOSES: 1. Debility. 2. Cognitive impairment. 3. Hypertension. 4. Depression. 5. Neck pain. CONSULTATIONS: There was consultation with Psychiatry. PROCEDURES: There were none. COMPLICATIONS: There were none. HISTORY AND HOSPITAL COURSE: Mr. Rubalcava was admitted from [facility], where he had been admitted 3 days prior with weakness , frequent falls, and confusion. In the hospital, no clear etiology for his decompensation was found. He was seen by his primary care doctor while he was inpatient, and lithium and fluoxetine were both increased. He had been recently discontinued from carbamazepine and gabapentin. He had steady progress in therapies. His initial functional independence measure, on 09/17/2016, was 65, which is consistent with needing assistance in all aspects of mobility and activities of daily living at the senior care level. It increased to 74 by 09/24/2016, which is still consistent with senior care level. However, he subsequently was allowed to be independent in his room. He required only standby assist for mobility and supervision for activities of daily living other than bathing, and he was noted to have fatigue by the end of the day. By the day before discharge, September 28, he was walking 150 feet or greater using a front-wheeled walker with modified independence. His Stephens Balance Test was 29/56, which indicated a high fall risk. However, the front- wheeled walker made him considerably safer. He was able to accomplish upper body dressing, grooming, and toileting with modified independence. He needed some assistance occasionally for donning footwear but, otherwise, was independent with lower body dressing. He continued to require supervision for shower and bathing tasks. He initially had a prominent tremor and had considerable word-finding difficulties. He had medication changes with discontinuation of lithium, tapering of fluoxetine from 40 to 20 mg q. day, and discontinuation of guanfacine. He was seen in consultation by Psychiatry, who determined that he does not have bipolar disorder but suffers from depression. He had insomnia at night, which was refractory to trazodone, as well as melatonin. It responded to benzodiazepines, but it was in his best interest not to continue, given their effects on balance and memory loss. He was begun on mirtazapine and slept better. However, he would awaken with neck pain. Ultimately, tramadol was added, and he had better control of his neck pain. Regarding cognition and communication, he had considerable improvement in his ability to speak with much less word-finding difficulty. He was trained on the use of a log book to improve functional memory. He continued to have moderate deficits in basic memory for everyday tasks, and this was complicated by anxiety. He had increased anxiety as his discharge day approached. Mirtazapine was increased from 7.5 to 15 mg q. day. After discontinuation of guanfacine, his blood pressure increased. He was started on hydrochlorothiazide 12.5 mg daily. Amlodipine and losartan were continued. They were both at maximum dose. He had improvement in his blood pressure control and a followup basic metabolic profile showed no abnormalities on the low dose of hydrochlorothiazide. LABORATORY STUDIES: During his stay, CBC was obtained on 09/16/2016, and it was overall within normal limits but for a minor elevation of absolute monocytes. Serum chemistry revealed an elevated fasting glucose on 2 occasions, 109 on 09/16 and 123 at 09/28. Otherwise, renal function, electrolytes, and liver functions were within normal limits. Wallace level was checked and was 0.8, but lithium was subsequently discontinued. CONDITION UPON DISCHARGE: Good. ACTIVITY: Ad mona, but he needs to use a walker for safety with ambulation, and he requires supervision with bathing. DIET: Regular. DATE OF NEXT APPOINTMENT: He is to follow up with his primary care provider, Dr. Velasquez, in approximately 10 days. MEDICATIONS AT DISCHARGE: 1. Aspirin 81 mg p.o. q. day. 2. Metamucil q. day. 3. Polyethylene glycol 17 g p.o. q. day p.r.n. 4. Tramadol 50 mg p.o. q.4 hours p.r.n. 5. Amlodipine 10 mg p.o. q. day. 6. Artificial Tears q.2 hours p.r.n. 7. Senna 1 tab p.o. twice q. day. 8. Lovaza 2 g p.o. b.i.d. 9. Losartan 100 mg p.o. q. day. 10. Levothyroxine 112 mcg p.o. q. day. 11. Ibuprofen 600 mg p.o. q.6 hours p.r.n. 12. Hydrochlorothiazide 12.5 mg p.o. q. day. 13. Gabapentin 400 mg p.o. twice t.i.d. 14. Fluticasone/salmeterol 1 puff b.i.d. 15. Fluoxetine 20 mg p.o. q. day. 16. Atorvastatin 20 mg p.o. q. day. 17. Acetaminophen 1000 mg p.o. t.i.d. 18. Mirtazapine 15 mg at bedtime. ISSUES TO BE ADDRESSED AT FOLLOWUP: 1. Functional status. He will continue to have physical, occupational, and speech therapy at the assisted-living facility, and he can follow up with his primary care provider regarding these issues, as well. 2. Hypertension. His blood pressure should be monitored. It was much improved on the regimen on which he was discharged. 3. Depression with bipolar disorder ruled out. Continue fluoxetine and mirtazapine. He will continue to have counseling with his psychologist, Dr. Chelo Hanson, and he needs to establish with a new psychiatrist. 4. Neck pain. Ultimately settled on tramadol. He has had an extensive surgical history, and there is probably no procedural option. He may have an improvement in neck pain with improved posture, and he worked on this with Physical [facility] Occupational Therapies and [facility]. /[id number]/MODL MTDD
== END 2016-09-29 13:50 | DRG 945 ==
LOC: BREH 16:16
PROVIDERS: ADMIT Physical Medicine & Rehabilitation; ATTEND Internal Medicine
DX: R53.81 Other malaise (principal); R53.1 Weakness; R26.9 Unspecified abnormalities of gait and mobility; F33.9 Major depressive disorder, recurrent, unspecified; F42.9 Obsessive-compulsive disorder, unspecified; F41.8 Other specified anxiety disorders; R25.1 Tremor, unspecified; T43.595A Adverse effect of other antipsychotics and neuroleptics, initial encounter; R41.89 Other symptoms and signs involving cognitive functions and awareness; M54.2 Cervicalgia; E03.9 Hypothyroidism, unspecified; I10 Essential (primary) hypertension; R32 Unspecified urinary incontinence; Z85.46 Personal history of malignant neoplasm of prostate
CPT/HCPCS: 92507-GN; 92522-GN; 97110-GO; 97110-GP; 97112-GP; 97116-GP; 97140-GO; 97162-GP; 97166-GO; 97530-GO; 97530-GP; 97535-GO; 99366-GO

== ENCOUNTER 2016-10-06 05:47 | Emergency (ER) | payer OTHER ==
[2016-10-06] MEDS ORDERED: LORazepam 0.5 MG TAB PO ONE (06:03)
--- NOTE | 2016-10-06 06:07 | EDPHY ---
H & P Stated Complaint: anxiety and SOB that woke him from sleep Time Seen by Provider: 10/06/16 05:57 HPI/ROS: Chief Complaint: Shortness of breath anxiety HPI: 75-year-old male with a history of depression and anxiety with her recent admission for functional declining cognitive impairment woke this morning several hours ago feeling anxious with increasing shortness of breath. Patient states that he has a history of anxiety is particularly anxious today because his family who has been visiting him are leaving today. He states when he thinks about this he started breathing fast and begins feeling increasingly short of breath. Denies any chest pain. No cough. On EMS arrival patient was satting 95% on room air is, was tachypneic, they were able to calm him down with reassurance was and the patient is now feeling better. No fevers or chills. No nausea or vomiting. ROS: 10 point Review of Systems is negative except as noted in the HPI. PMH: Depression, neck pain, cognitive impairment, hypertension, hypothyroidism , hyperlipidemia, prostate cancer, hyponatremia, OCD, ADD Social History: No smoking, no alcohol, no recreational drug use Family History: non-contributory Physical Exam: Gen: Awake, Alert, anxious appearing but calm when conversant, speaking in full sentences in no distress HEENT: Nose: no rhinorrhea Eyes: PERRLA, EOMI Mouth: Moist mucosa Neck: Supple, no JVD Chest: nontender, lungs clear to auscultation Heart: S1, S2 normal, no murmur Abd: Soft, non-tender, no guarding Back: no CVA tenderness, no midline tenderness Ext: no edema, non-tender Skin: no rash Neuro: CN II-XII intact, Sensation grossly intact, Strength 5/5 in bilateral upper and lower extremities - Personal History Current Tetanus/Diphtheria Vaccine: Unsure Current Tetanus Diphtheria and Acellular Pertussis (TDAP): Unsure Tetanus Vaccine Date: 2003 - Medical/Surgical History Hx Asthma: No Hx Chronic Respiratory Disease: Yes Hx Diabetes: No Hx Cardiac Disease: No Hx Renal Disease: No Hx Cirrhosis: No Hx Alcoholism: No Hx HIV/AIDS: No Hx Splenectomy or Spleen Trauma: No Other PMH: 12 neck fusions, HTN, Cataracts, bipolar, anxiety, OCD, dementia, hyperlipidemia, mood disorder, insomnia, convulsions, BPH, hypothyroidism, obstructive reflux uropathy, polyneuropathy, spinal stenosis, weakness, other symbolic dysfunctions - Social History Smoking Status: Never smoked Constitutional: Initial Vital Signs Temperature (C) 36.8 C 10/06/16 05:59 Heart Rate 62 10/06/16 05:59 Respiratory Rate 20 10/06/16 05:59 Blood Pressure 138/86 H 10/06/16 05:59 O2 Sat (%) 95 10/06/16 05:59 O2 Delivery Mode Room Air Allergies/Adverse Reactions: No Known Allergies Allergy (Verified 09/12/16 14:54) Home Medications: Medication Instructions Recorded Polyethylene Glycol 3350 [Miralax 17 gm PO DAILY PRN #0 pkt 09/15/16 17 gm (*)] Acetaminophen [Tylenol ES 500 mg 1,000 mg PO TID #0 tab 09/28/16 (*)] Fluticasone/Salmeter 250/50Mcg 1 puffs IH BID@0900,1930 #1 disk 09/28/16 [Advair 250/50 (*)] Ibuprofen [Motrin (*)] 600 mg PO Q6HRS PRN #0 tab 09/28/16 [place]-3 Ethyl Est-Lovaza [Lovaza 1 2 gm PO BID@0730,1930 #120 cap 09/28/16 gm (*)] Tears/Dextran 70/Hypromellose 1 drop EACHEYE Q2HRS PRN #0 09/28/16 [Natural Balance Tears (*)] opht.btl Tramadol HCl 50 mg PO Q4HRS PRN #90 tablet 09/28/16 traMADol [Ultram 50 mg (*)] 50 mg PO Q4 PRN #0 tab 09/28/16 Lovaza 1 gm (*) 10/06/16 Melatonin 3 MG (*) 10/06/16 Tegretol 10/06/16 Medical Decision Making - Diagnostics EKG Interpretation: ECG time 6:10 a.m. sinus rhythm with a rate of 59, normal axis with a left anterior fascicular block. No acute ST or T-wave changes. ED Course/Re-evaluation: 75-year-old male presenting with shortness of breath and anxiety. He has a history of insomnia and depression. He is increasingly anxious because he is leaving today. His vital signs are normal. His lungs are clear. He is able to calm down a feels much better. Will give him 0.5 mg of Ativan to assist with his anxiety. Will check an ECG. I do not believe there is any other acute medical process going on at this time otherwise. Will discuss with his primary care physician Dr. Velasquez. Case discussed with , on-call for Dr. Velasquez. She knows the patient very well. This is a common presentation for him. She is in agreement with the plan to discharge to home with follow-up in the office. She will arrange to have contact him later today. Patient is now resting comfortably and sleeping after the small dose of Ativan. Oxygen saturations remain normal. ECG is unremarkable. Will discharge with follow-up as stated. - Data Points Medications Given: Discontinued Medications Lorazepam (Ativan) 0.5 mg PO EDNOW ONE Stop: 10/06/16 06:04 Last Admin: 10/06/16 06:10 Dose: 0.5 mg Departure - Departure Disposition: Home, Routine, Self-Care Clinical Impression: Anxiety, Dyspnea Condition: Good Instructions: Anxiety (ED), Dyspnea (ED) Additional Instructions: Follow up with Dr. Velasquez in 2-3 days for re-evaluation. Return to the emergency department for increasing pain, fevers, chills, cough, shortness of breath, or any other concerns. Referrals: Patient,NotPresent [Primary Care Provider] - As per Instructions Vahe Velasquez MD [Medical Doctor] - As per Instructions
--- NOTE | 2016-10-06 06:12 | CPEKG ---
Heart Rate: 59 RR Interval: 1017 P-R Interval: 204 QRSD Interval: 98 QT Interval: 448 QTC Interval: 444 P [place]: 35 QRS [place]: -47 T Wave [place]: 22 EKG Severity - ABNORMAL ECG - EKG Impression: SINUS RHYTHM EKG Impression: LEFT ANTERIOR FASCICULAR BLOCK Electronically Signed By: Jeff Parker 06-Oct-2016 06:29:44
[2016-10-06 07:31] VITALS: BP 128/79; PULSE 80; RESP 14; TEMP 98.4; O2SAT 94
== END 2016-10-06 07:25 | disposition home or self-care (01) ==
LOC: EDUNIT#
DX: F41.9 Anxiety disorder, unspecified (principal); I10 Essential (primary) hypertension; Z85.46 Personal history of malignant neoplasm of prostate

== ENCOUNTER → 2016-11-01 | Outpatient (CLI) | payer OTHER | LOC: FIMAGING 11:01 | PROVIDERS: ATTEND Neurological Surgery | DX: M54.2 Cervicalgia (principal); Z98.1 Arthrodesis status ==

== ENCOUNTER → 2017-05-09 | Outpatient (CLI) | payer OTHER | LOC: FIMAGING 09:05 | PROVIDERS: ATTEND Physician Assistant | DX: Z47.89 Encounter for other orthopedic aftercare (principal); Z98.1 Arthrodesis status ==

== ENCOUNTER 2017-06-30 04:33 | Inpatient (IN) | payer OTHER ==
[2017-06-30] MEDS ORDERED: NS 1,000 ML IV ONE ×2 (04:39→05:08)
[2017-06-30] MEDS ORDERED: EPINEPHrine 1 MG/10 ML SYR IVP ONE ×3 (04:40→06:00)
[2017-06-30] MEDS ORDERED: IOPAMIDOL (ISOVUE 370) 100 ML BTL IV ONE (04:44)
[2017-06-30 04:52] LABS: PLATELET COUNT 244 10^3/uL (150-400)
--- NOTE | 2017-06-30 04:52 | EDPHY ---
H & P HPI/ROS: HPI CHIEF COMPLAINT: Witnessed cardiopulmonary arrest, with By-stander CPR, ROSC HISTORY OF PRESENT ILLNESS: This patient is 76-year-old male, presents to the emergency room by EMS after he had a witnessed cardiopulmonary arrest at his [facility] facility. Patient according to EMS was sick earlier today with respiratory symptoms and declined EMS transport to the hospital. According to staff they contacted EMS tonight as he had became short of breath he had a witnessed cardiopulmonary arrest. Bystanders perform CPR. When EMS arrived they found him to be initial PEA rhythm. They administered CPR, and 3 rounds of epinephrine, and he had return of spontaneous circulation. He was intubated in the field with a 7.5 endotracheal tube. He presents emergency room with a blood pressure 134/115 heart rate in the 80s pulse ox 97% intubated. He had an IO placed in the left tib-fib in the field. Upon Arrival, EMS reports that the patient is a FULL CODE. The patient's paperwork that was provided with him from the Trooper states in CAPITAL letters very large letters, on a piece of paper, FULL CODE, however review of other paper work in his packet under advance directives line: states DNR. THE MOST FORM was not available upon ER arrival or handed to EMS. However due to the confusion of the patient being a full code versus DNR we did confirm and was able to get the MOST form from [facility] Faxed over, that infact states he is a DNR/DNI no CPR. PCP: Dr. Arnel Velasquez. Upon arrival and IV was established. EKG was obtained. Past Medical History: Hypertension, hyperlipidemia, debility, bipolar disorder , OCD, atherosclerosis, depression Past Surgical History: Groin surgery of some kind. Social History: Resides at [facility]. Family History: Noncontributory ROS REVIEW OF SYSTEMS: A comprehensive 10 point review of systems is otherwise negative aside from elements mentioned in the history of present illness. Exam Constitutional unresponsive intubated vital signs noted upon arrival 134/115 blood pressure heart rate 80s, pulse ox 97% intubated Eyes 3 mm equal HENT endotracheal tube from a oral pharynx, good position. Respiratory good breath sounds bilaterally with bagging Cardiovascular tachycardic Gastrointestinal distended abdomen Genitourinary no CVA tenderness. Musculoskeletal unremarkable Skin cool Skin. Neurologic unresponsive Differential Diagnosis: Includes but is not limited to in a particular order cardiopulmonary arrest, hypoxic respiratory failure leading to cardiopulmonary arrest, acute NV, aortic dissection is cranial bleed, sepsis Medical Decision Making: Plan for this patient he is a full code from [facility]. Will obtain an x-ray to confirm endotracheal tube placement, EKG, blood work including ABG, lactic acid, electrolytes, CT scan of the head and neck because he fell after cardiopulmonary arrest, additionally CT angiogram chest. Patient most likely need hypothermic protocol status post cardiopulmonary arrest. Re-evaluation: 0449: Shortly after arriving the patient had a regular pulse. However he did Ricardo down into the 40s and went into PEA. Another round of CPR was performed. Another 1mg of epinephrine was given, additionally amp bicarbonate and amp calcium. He now has return of spontaneous circulation once again current heart rate 123, blood pressure 171/131 pulse ox 90% ventilated. EKG interpretation by me on record in [employer] system. Impression time of EKG 4:36 a.m. this is the initial EKG shortly after arrival, atrial fibrillation rate of [address] elevation. There is some ST depression inferior leads. QRS is narrow. This may be a post cardiac arrest EKG. EKG interpretation by me on record in [employer] system. Impression time of EKG 452: Sinus tachycardia rate of 118 post cardiac arrest EKG. I do not appreciate ST elevation. QRS is slightly wide. ED x-ray chest one view: Endotracheal tube is in correct position. Cervical spine hardware seen. Bilateral lungs are inflated. No pneumonia. Cardiomegaly present. OG tube in correct position. Critical Care: Total Critical Care Time Spent Managing this Patient: 85 Minutes. This time was spent Exclusively with this patient. This Care was exclusive of procedures. The Organ System/life at risk was cardiopulmonary arrest This Patient was in Critical Condition because cardiopulmonary arrest 0523: Per EMS the patient was deemed a full code. However his most form has not arrived from [facility]. kettle cleaner, Anthony, did speak with the patient's his sister. His sister (RYLEE BIRMINGHAM ) reports this the the patient he does not want advanced life-saving procedures. However the form that she has does not have stated that he is a DNR. We are trying to clarify about his advance directives at this time will contact his primary care doctor. 0524: At this time this patient is back from CT scan. He remains hemodynamically stable and intubated. I will proceed with central line as well as thermal card if the patient is deemed wanting aggressive measures. 0527: Upon further review of the patient's medical paperwork from. 0531: Spoke with Velia Fonseca MD, scallop cutter machine for Dr. Spann. We are confirming CODE status/advance directives. Confirmed that this patient has a MOST Form Dated at 11/17/16 that States NO CPR, NO INTUBATION. Spoke at length with Dr. Fonseca. Additionally [facility] fax the MOST form which does in fact show no CPR, limited additional interventions okay with antibiotics and no long-term artificial nutrition this was dated 11/17/2016. Additionally there is a dated at the bottom the page dated 10/07/2016 I will honor this patient's wishes and not do any further aggressive treatment. Specifically I will not place a central line or ThermaGuard (HACA) Additionally will need to make decisions about possible extubation. Will have this discussion with his primary care doctor as well sister on the phone about what we should do next given that the patient receive CPR and intubation in the field by EMS and at his [facility]. 0600AM: Spoke with Sister over Rylee Birmingham, discussed the case in detail with her. Discussed that we just got the MOST FORM. That is DNR/no prolonged Life support, no CPR. I explained since this happen in the field and now the patient is hemodynamically stable normal vital signs and intubated the patient will go to the ICU. And then a discussion will be had between the sister Rylee Birmingham, and Dr. Spann about further what to do. Possible extubation. The patient will be admitted to Dr. Velia Fonseca. She accepts the admission to ICU. She understands the situation. It is unclear to the ER staff as well as myself how the patient receive CPR and advanced life support in the field. It sounds like the MOST form was not available and the staff at [facility] stated he was a Full CODE. Given that this patient is not a full code I will not perform any further aggressive measures as this is not what he would want and is against his wishes. Patient proceed to the ICU. 0612: Spoke with Dr. Arnel Velasquez, spoke at length about the case. He would like the patient go to the ICU. And they will further sort out details of further care with his sister. 0632AM: Patient starting to move. Blinking eyes. Started Propofol to keep him comfortable, until further decisions can be make by his Primary and Family. Source: EMS - Personal History Tetanus Vaccine Date: 2003 - Medical/Surgical History Hx Asthma: No Hx Chronic Respiratory Disease: Yes Hx Diabetes: No Hx Cardiac Disease: No Hx Renal Disease: No Hx Cirrhosis: No Hx Alcoholism: No Hx HIV/AIDS: No Hx Splenectomy or Spleen Trauma: No Other PMH: 12 neck fusions, HTN, Cataracts, bipolar, anxiety, OCD, dementia, hyperlipidemia, mood disorder, insomnia, convulsions, BPH, hypothyroidism, obstructive reflux uropathy, polyneuropathy, spinal stenosis, weakness, other symbolic dysfunctions - Social History Smoking Status: Never smoked Constitutional: Initial Vital Signs Heart Rate 73 06/30/17 04:30 Respiratory Rate 16 06/30/17 04:30 Blood Pressure 112/77 06/30/17 04:30 O2 Sat (%) 93 06/30/17 04:30 O2 Delivery Mode Ventilator Allergies/Adverse Reactions: No Known Allergies Allergy (Verified 09/12/16 14:54) Home Medications: Medication Instructions Recorded Acetaminophen [Tylenol ES 500 mg 1,000 mg PO TID 06/30/17 (*)] Aspirin [Aspirin 81mg (*)] 81 mg PO DAILY 06/30/17 Atorvastatin Calcium [Lipitor 20 20 mg PO DAILY 06/30/17 mg (*)] Azithromycin [Zithromax] 250 mg PO DAILY 06/30/17 Cholecalciferol Vit D3 [Vitamin D3 4,000 units PO DAILY 06/30/17 2000 units tab (OTC)] FLUoxetine [Prozac 20 MG (*)] 20 mg PO DAILY 06/30/17 Fluticasone/Salmeter 250/50Mcg 1 puffs IH BID 06/30/17 [Advair 250/50 (*)] Gabapentin [Neurontin 400 MG (*)] 400 mg PO TID 06/30/17 Hydrochlorothiazide [HCTZ (*)] 12.5 mg PO DAILY 06/30/17 Ibuprofen [Motrin (*)] 200 mg PO Q6HRS PRN 06/30/17 LORazepam [Ativan (*)] 0.5 mg PO DAILY 06/30/17 Levothyroxine [Synthroid 112 mcg 112 mcg PO DAILY06 06/30/17 (*)] Losartan Potassium [Cozaar 50 mg 100 mg PO DAILY 06/30/17 (*)] Magnesium Oxide [Magnesium Oxide 400 mg PO DAILY 06/30/17 400 mg (*)] Melatonin [Melatonin 5 mg] 10 mg PO HS 06/30/17 OLANZapine [ZyPREXA 2.5 mg (*)] 5 mg PO BID 06/30/17 Oseltamivir Phosphate [Tamiflu 75 75 mg PO DAILY 06/30/17 mg (*)] Polyethylene Glycol 3350 [Miralax 17 gm PO DAILY PRN 06/30/17 17 gm (*)] Psyllium Husk (with Sugar) 1 each PO TID 06/30/17 [Metamucil Packet] Sennosides/Docusate Sodium 1 each PO BID 06/30/17 [Senna-S Tablet] Tears/Dextran 70/Hypromellose 1 drop EACHEYE Q2 PRN 06/30/17 [Natural Balance Tears (*)] amLODIPine BESYLATE [Norvasc 5 mg 5 mg PO DAILY 06/30/17 (*)] traMADol [Ultram 50 mg (*)] 50 mg PO Q4HRS PRN 06/30/17 Medical Decision Making - Data Points Laboratory Results: Laboratory Results 06/30/17 04:40 06/30/17 04:40 Medications Given: Discontinued Medications Acetaminophen (Tylenol) 650 mg PO Q4HRS PRN PRN Reason: Pain, Mild/Fever, Can Take PO Stop: 12/27/17 07:38 Last Admin: 06/30/17 14:49 Dose: 650 mg Calcium Chloride (Calcium Chloride) 1 gm IV EDNOW ONE Stop: 06/30/17 05:10 Last Admin: 06/30/17 04:45 Dose: 1 gm Epinephrine HCl (Epinephrine) 1 mg IVP EDNOW ONE Stop: 06/30/17 05:10 Last Admin: 06/30/17 04:45 Dose: 1 mg Epinephrine HCl (Epinephrine) 1 mg IVP EDNOW ONE Stop: 06/30/17 04:41 Last Admin: 06/30/17 04:45 Dose: 1 mg Fentanyl (Sublimaze) 50 mcg IVP ONCE ONE Stop: 06/30/17 07:31 Last Admin: 06/30/17 07:00 Dose: 50 mcg Sodium Chloride (Ns) 1,000 mls @ 0 mls/hr IV EDNOW ONE; Wide Open PRN Reason: Protocol Stop: 06/30/17 04:40 Last Admin: 06/30/17 04:40 Dose: 1,000 mls Sodium Chloride (Ns) 1,000 mls @ 0 mls/hr IV ONCE ONE PRN Reason: Wide Open Stop: 06/30/17 05:09 Last Admin: 06/30/17 04:55 Dose: 1,000 mls Propofol (Diprivan 10 Mg/Ml (Premix)) 50 mls @ 0 mls/hr IV EDNOW ONE; As Directed PRN Reason: Protocol Stop: 06/30/17 05:11 Last Admin: 06/30/17 07:58 Dose: Not Given Clindamycin Phosphate/Dextrose (Cleocin 600 Mg (Premix)) 50 mls @ 100 mls/hr IV Q8HRS SKYE PRN Reason: Protocol Stop: 07/30/17 08:59 Last Admin: 07/01/17 05:44 Dose: 50 mls Propofol (Diprivan 10 Mg/Ml (Premix)) 50 mls @ 0 mls/hr IV CONT SKYE; Per Protocol PRN Reason: Protocol Stop: 12/28/17 04:53 Last Admin: 07/01/17 05:12 Dose: 50 mls Lorazepam (Ativan Injection) 2 mg IVP Q2HRS PRN PRN Reason: Anxiety, Unable to Take PO Stop: 12/28/17 14:34 Last Admin: 07/01/17 14:52 Dose: 2 mg Morphine Sulfate (Morphine) 4 mg IVP Q1HR SKYE Stop: 07/11/17 14:59 Last Admin: 07/01/17 14:52 Dose: 4 mg Propofol (Diprivan) 50 mg IVP EDNOW ONE Stop: 06/30/17 05:11 Last Admin: 06/30/17 06:00 Dose: 50 mg Propofol (Diprivan) 50 mg IVP EDNOW ONE Stop: 06/30/17 06:11 Last Admin: 06/30/17 06:15 Dose: 50 mg Scopolamine HBr (Scopolamine Patch) 1 patch TD Q72H PRN PRN Reason: Upper Airway Secretions Stop: 12/28/17 14:34 Last Admin: 07/01/17 14:52 Dose: 1 patch Sodium Bicarbonate (Sodium Bicarbonate) 50 meq IVP EDNOW ONE Stop: 06/30/17 05:10 Last Admin: 06/30/17 05:00 Dose: 50 meq Sodium Bicarbonate (Sodium Bicarbonate) 50 meq IVP ONCE ONE Stop: 06/30/17 05:10 Last Admin: 06/30/17 05:00 Dose: 50 meq Sodium Bicarbonate (Sodium Bicarbonate) 50 meq IVP EDNOW ONE Stop: 06/30/17 05:11 Last Admin: 06/30/17 04:45 Dose: 50 meq Vecuronium [place] (Vecuronium [place]) 10 mg IV EDNOW ONE Stop: 06/30/17 05:12 Last Admin: 06/30/17 07:58 Dose: Not Given Departure - Departure Disposition: [facility] Inpatient Acute Clinical Impression: Cardiopulmonary arrest Condition: Critical
[2017-06-30] MEDS ORDERED: NA BICARBONATE 50 MEQ/50 ML VIAL ONE (04:59)
[2017-06-30 05:00] LABS: INR 1.11 (0.83-1.16); PROTIME(PATIENT) 14.5 SEC (12.0-15.0)
[2017-06-30] MEDS ORDERED: SODIUM BICARBONATE 50 MEQ/50 ML SYR ONE (05:02)
[2017-06-30 05:03] LABS: CREATINE KINASE 332 IU/L (0-224)
[2017-06-30] MEDS ORDERED: SODIUM BICARBONATE 50 MEQ/50 ML SYR IVP ONE ×3 (05:09→05:10)
[2017-06-30] MEDS ORDERED: CALCIUM CHLORIDE 1 GM/10 ML INJ IV ONE (05:09)
[2017-06-30] MEDS ORDERED: PROPOFOL/EMULSION 50 ML IV ONE (05:10)
[2017-06-30] MEDS ORDERED: PROPOFOL 200 MG/20 ML VIAL IVP ONE ×2 (05:10→06:10)
[2017-06-30] MEDS ORDERED: VECURONIUM BROMIDE 10 MG VIAL IV ONE (05:11)
--- NOTE | 2017-06-30 05:30 | CPEKG ---
Heart Rate: 118 RR Interval: 508 P-R Interval: 172 QRSD Interval: 108 QT Interval: 324 QTC Interval: 455 P Kemp: 59 QRS Kemp: -56 T Wave Kemp: 97 EKG Severity - ABNORMAL ECG - EKG Impression: SINUS TACHYCARDIA EKG Impression: LEFT ANTERIOR FASCICULAR BLOCK EKG Impression: LVH WITH SECONDARY REPOLARIZATION ABNORMALITY EKG Impression: POSSIBLE LATERAL INFARCT, AGE INDETERMINATE Electronically Signed By: Rod Almanza 03-Jul-2017 10:24:25
[2017-06-30] MEDS ORDERED: PROPOFOL/EMULSION 1,000 MG/100 ML BOTTLE IV ONE (05:47)
[2017-06-30] MEDS ORDERED: CALCIUM CHLORIDE 1 GM/10 ML INJ ONE (06:00)
[2017-06-30] MEDS ORDERED: fentaNYL 100 MCG/2 ML INJ ONE (06:52)
[2017-06-30] MEDS ORDERED: fentaNYL 100 MCG/2 ML INJ IVP ONE (07:30)
[2017-06-30] MEDS ORDERED: ACETAMINOPHEN 325 MG TAB PO PRN (07:39)
[2017-06-30] MEDS ORDERED: ONDANSETRON DISINTEGRATING 4 MG TAB PO PRN (07:39)
[2017-06-30] MEDS ORDERED: ONDANSETRON 4 MG/2 ML VIAL IVP PRN (07:39)
--- NOTE | 2017-06-30 08:17 | SOAPPROG ---
SOAP Progress Note Assessment/Plan: Assessment: Plan: 06/30/17 08:20 Cardiopulmonary arrest: currently in ICU, intubated, with stable vital signs. Have spoken with both Dr. Velasquez and pt's sister, Rylee [place], who is POA, regarding situation. Rylee's phone number is [phone], and she is in [place]. For now, sister would like to observe pt over the next several hours prior to making a decision regarding withdrawal of care. Have spoken with Dr. Cason, and they will manage his ventilator, but we will hold any further invasive activity for now. Central line placement and hypothermia protocol deferred due to pt's advance directive. Dr. Cason also offered to perform bronchoscopy, but will not do this due to advance directive. I think the likelihood of meaningful recovery is low. Pulmonary infiltrates: likely due to aspiration. Will place on clindamycin for now, as his MOST document does allow for this. Hypothyroid: meds held for now, until status becomes clearer Bipolar: as above Hypertension: BP stable. Meds held currently. LLE edema: related to infiltration of epinephrine into subcutaneous tissue. Will monitor for necrosis. DVT prophylaxis: will use SCDs. Dispo: if there is some spontaneous recovery, then I would anticipate 2 MN, but if not, he may be extubated later today, and then we will see how he responds. 06/30/17 08:49 06/30/17 08:56 06/30/17 09:00 06/30/17 09:01 06/30/17 09:04 06/30/17 09:07 Subjective: 76 yo male with multiple medical problems was not feeling well due to respiratory symptoms yesterday, but refused hospital transport. Later last night , felt SOB and had a witnessed cardiopulmonary arrest. CPR initiated and EMS called. On arrival of EMS, pt noted to be in PEA. Additional CPR administered, 3 doses epinephrine given via L leg OI, though appears site was infiltrated. Spontaneous circulation returned, pt intubated and brought to ED with understanding that he was full code. It is unclear why his MOST directive, which indicates no CPR and no intubation was not available at the time of his arrest. He underwent further rescusitation efforts in the ER when he became bradycardic, and spontaneous circulation again returned. EKG doesn't show any ischemic change. CT head, CTA of head and chest, and CT spine all normal per ED report. However, in reviewing CT chest with Dr. Velasquez, pt does have bilateral infiltrate. Per nursing, they have also suctioned a significant amount from his NG tube. Pt was noted to have some spontaneous movement in ED, and to be biting down on his ET tube, so propofol started, and he was admitted to ICU. Placement of ET tube adjusted and propofol discontinued. He has remained unresponsive, with frequent myoclonic jerking. Objective: Vital Signs Temp Pulse Resp BP Pulse Ox 34.8 C L 68 15 130/70 H 98 06/30/17 06:54 06/30/17 06:54 06/30/17 06:54 06/30/17 06:54 06/30/17 06:54 06/29/17 06/30/17 07/01/17 05:59 05:59 05:59 Intake Total 3000 Output Total 600 Balance 2400 PT 14.5 SEC (12.0-15.0) 06/30/17 04:40 INR 1.11 (0.83-1.16) 06/30/17 04:40 General: intubated, unresponsive HEENT: pupils pinpoint, gaze is upward Lungs: clear Cardiovascular: RRR without murmur Abdomen: no bowel sounds, distended, soft Skin: multiple ecchymoses Extremities: LLL edematous, though much improved per from ED per RN. Neurologic: unresponsive, frequent myoclonic jerking, no withdrawal to pain stimulus ICD10 Worksheet Patient Problems: Problems Problem Status Onset Cardiopulmonary arrest Acute Anxiety Acute Coffee ground emesis Acute Confusion Acute Expressive aphasia Acute Fall Acute Generalized weakness Acute Head injury Acute Hypertension Acute Hypochloremia Acute Hyponatremia Acute OCD (obsessive compulsive disorder) Acute Scalp laceration Acute Spinal stenosis Acute Syncope Acute TIA (transient ischemic attack) Acute
--- NOTE | 2017-06-30 10:35 | GCON ---
[f rep st] CONSULTATION [employer] CONSULTATION REASON FOR ADMISSION: Witnessed cardiopulmonary arrest. Acute respiratory failure. HISTORY OF PRESENT ILLNESS: The patient is an unfortunate 76-year-old white male with a past medical history of syncope, obsessive compulsive disorder, hyponatremia, history of closed head injury, and anxiety. He had a witnessed cardiopulmonary arrest at [facility] and he was intubated i n the field by EMS. He was brought to the emergency room at [facility]. He apparently underwent CPR in the field as well. His initial rhythm was PEA. He underwent cardiopulmonary resus citation with epinephrine and subsequent return of spontaneous circulation. An IO was placed in the left tib-fib as well. He was subsequently found to be a do not resuscitate. It was decided in the e mergency room not to go ahead with HACA protocol given that he is a do not resuscitate. He was subse quently admitted to the intensive care unit. Currently, he is in coma and having seizures. No other information is available with the exception of what is on the chart. A 10-point review of system wa s attempted; however, patient is in coma and unable to provide any history. PAST MEDICAL HISTORY: Significant for hypertension, hyperlipidemia, bipolar disorder, obsessive comp ulsive disorder, and depression. PAST SURGICAL HISTORY: Some sort of groin surgery. ALLERGIES: No allergies to medications. SOCIAL HISTORY: Unknown. FAMILY HISTORY: Noncontributory. PHYSICAL EXAM: VITAL SIGNS: Blood pressure is 130/70, pulse 68, respirations 15, temperature 34.8, oxygen saturation 98% on 100% mechanical ventilation. GENERAL: He is a well-developed, elderly whit e male who is in coma and having seizures, but on mechanical ventilation. HEENT: Pupils are smallis h but unreactive. Throat: Endotracheal tube is in good position. NECK: Supple. There is no cervi theresa adenopathy. HEART: Regular rate and rhythm with a 2/6 systolic murmur at left sternal border wi thout radiation. LUNGS: Diminished breath sounds but no wheeze. ABDOMEN: Soft, nontender. Bowel sounds are present in all 4 quadrants. EXTREMITIES: No clubbing, cyanosis, or edema. LABORATORIES: White count 11.8, hemoglobin 13, hematocrit 40, platelet count 244. INR is 1.11. Sod ium 137, potassium 4.3, chloride 96. CO2 is 18. BUN 16, creatinine 1, glucose is 309. AST is eleva macie at 94. ALT is elevated at 110. BNP is 507. Urinalysis: PH 7, specific gravity 1.010, 25-50 WB Cs, 3+ glucose. Urine tox screen is negative for benzodiazepines. Arterial blood gas: PH 7.32, pCO 2 of 35, pO2 of 293. Bicarb is 19. Oxygen saturation is 99%. This is on an IMV of 15, tidal volume 600, +7 of pressure support, +5 of PEEP. Chest x-ray: Endotracheal tube is in good position. There was some evidence of pulmonary edema. IMPRESSION: 1. Status post cardiopulmonary arrest. 2. Acute respiratory failure secondary to above. 3. The patient is a do not resuscitate. 4. History of hypertension. 5. History of bipolar disease. 6. Probable aspiration pneumonia. RECOMMENDATIONS: 1. I have discussed with the primary care physician. We will continue mechanical ventilation for no w. I also agree with starting antibiotics at this time. Apparently, if he has not improved within t he next 6 hours, there is a possibility of withdrawal of support. 2. Agree with not starting HACA. Please note, 45 minutes of critical care time spent with the patient. Case was discussed with Renato higgins, Respiratory Therapy, and Primary Care. /[id number]/MODL
[2017-06-30] MEDS: CLINDAMYCIN 600 MG/DEXTROSE 50 ML IV SCH ×3 (10:59→21:26)
--- NOTE | 2017-06-30 13:56 | GHP ---
[f rep st] HISTORY AND PHYSICAL DATE OF ADMISSION: 06/30/2017 HISTORY OF PRESENT ILLNESS: The patient is a 76-year-old male with multiple medical problems, who resides at [facility], who was not feeling well due to respiratory symptoms yesterday, but refused hospital transport at the time. Later last night, he began to feel short of breath and had a witnessed cardiopulmonary arrest. CPR was initiated, and EMS was called. On arrival, EMS noted the patient to be in PEA. Additional CPR was administered along with 3 doses of epinephrine via left leg IO, though it appears that that site was infiltrated. Spontaneous circulation was returned. The patient was intubated and brought to the emergency department with the understanding that he was full code. It is unclear why his MOST directive, which indicates no CPR and no intubation, was not available at the time of his arrest. He underwent further resuscitation efforts in the emergency department after becoming bradycardic, and spontaneous circulation was again returned. EKG does not show any ischemic change. CT of the head was negative. CT angiogram of the head and chest, as well as a CT of the spine were normal per ED report. However, in reviewing the CT of his chest with Dr. Velasquez, he does have bilateral infiltrates. Per Nursing, they have also suctioned a significant amount of fluid from his NG tube. In the emergency department, the patient was noted to have some spontaneous movement and was biting down on his ET tube, so propofol was started, and he was transferred to the ICU. In the ICU, the placement of his ET tube was adjusted, and the propofol was discontinued. He has remained unresponsive with frequent myoclonic jerking. PAST MEDICAL HISTORY: Mild coronary artery atherosclerosis, depression, hypertension, prostate cancer, chronic pain, hyperlipidemia, osteoporosis, OCD, ADD, anxiety, cough-variant asthma. MEDICATIONS: Vitamin D 4000 international units daily, azithromycin 250 mg daily, aspirin 81 mg daily, amlodipine 5 mg daily, Tylenol 1000 mg t.i.d., atorvastatin 20 mg daily, lorazepam 0.5 mg 1 in the morning, 2 at night, olanzapine 5 mg b.i.d., Advair Diskus 250/50 one puff b.i.d., gabapentin 400 mg t.i.d., levothyroxine 112 mcg daily, losartan 100 mg daily, fluoxetine 20 mg daily, hydrochlorothiazide 12.5 mg daily, tramadol 50 mg q.4 hours p.r.n., albuterol inhaler 2 puffs as needed every 4 hours. ALLERGIES: Lisinopril which causes a cough. SURGICAL HISTORY: C-spine surgeries x2 in 2010, tonsillectomy, prostatectomy in 1991, herniorrhaphy twice. FAMILY HISTORY: Noncontributory. SOCIAL HISTORY: The patient is and lives in assisted living. He is a nonsmoker. REVIEW OF SYSTEMS: Other than what is stated in HPI, was not obtainable. LABORATORY DATA: White blood cell count 11.82, hemoglobin 13, hematocrit 40.8, platelet count 244. PT 14.5, INR 1.11, PTT 30.7, D-dimer 10.62. Blood gas initially with a pO2 of 203, CO2 13, pH 7.13, bicarb 12. Repeat ABG with a pO2 of 293, CO2 19, pH 7.32, bicarb 18. Lactic acid 10.5. Chemistry: Sodium 137, potassium 4.3, chloride 96, bicarb 18, BUN 16, creatinine 1, glucose 309, AST 94 , ALT 110. CK 332, CK-MB 3.41, CK-MB percentage 1%, BNP 507. Urine: 3+ protein, 1+ blood, 5-25 RBCs, 25-50 WBCs, positive for glucose. Toxicology screen was positive for benzodiazepine. VITAL SIGNS: Blood pressure 130/70, heart rate 68, respiratory rate 15, O2 saturation 98%. Patient on ventilator with FiO2 of 100%, temperature 34.8. Cardiac rhythm shows a normal sinus rhythm. PHYSICAL EXAM: GENERAL: The patient is intubated and unresponsive. HEENT: Pupils are pin point. Gaze is upward. LUNGS: Clear bilaterally. CARDIOVASCULAR: Regular rate and rhythm without murmur. ABDOMEN: No bowel sounds noted. Distended and soft. SKIN: Multiple ecchymoses. EXTREMITIES: Left lower extremity edematous, though much improved from ED per RN. NEUROLOGIC : Unresponsive with frequent myoclonic jerking and no withdrawal to pain stimulus. ASSESSMENT AND PLAN: 1. Cardiopulmonary arrest, currently in ICU, intubated with stable vital signs. Have spoken with both Dr. Velasquez and the patient's sister, who is MAXINE , regarding the situation. Her phone number is [phone], and she is in [place]. For now, she would like the patient to be observed over the next several hours prior to making a decision regarding withdrawal of care. I have spoken with Dr. Cason, and they will manage his ventilator, but we will hold off any further invasive activity for now. Central line placement and hypothermia protocol deferred due to patient's advance directive. Dr. Cason also offered to perform bronchoscopy due to likely aspiration, but we will not do this due to his advance directive. I think the likelihood of meaningful recovery is low. 2. Pulmonary infiltrates, likely due to aspiration. We will place him on clindamycin for now as his MOST document does allow for this. 3. Hypothyroid. Medications held for now until status becomes clearer. 4. Bipolar. As above. 5. Hypertension. Blood pressure stable. Medications held currently. 6. Left lower extremity edema related to infiltration of epinephrine into subcutaneous tissue. We will monitor for necrosis. 7. Deep venous thrombosis prophylaxis. We will use SCDs. 8. Disposition. If there is some spontaneous recovery, then I would anticipate 2 midnights, but if not, he may be extubated later today, and then we will see how he responds. /[id number]/MODL MTDD
[2017-06-30] MEDS ORDERED: CLINDAMYCIN 600 MG/DEXTROSE 50 ML IV SCH (14:00)
[2017-06-30 18:46] VITALS: RESP 15
[2017-07-01] MEDS ORDERED: PROPOFOL/EMULSION 50 ML IV SCH (04:54)
[2017-07-01] MEDS: CLINDAMYCIN 600 MG/DEXTROSE 50 ML IV SCH (05:44)
--- NOTE | 2017-07-01 08:45 | PDINTPN ---
[employer] Progress Note Assessment/Plan: Assessment/Plan: * Status post cardiac arrest-no hypoxia was performed * Influenza * Acute respiratory failure secondary to above-stable on mechanical ventilation -not able to extubate this time * Coma/encephalopathy-no improvement from a neurologic standpoint. Negative gag * Do not resuscitate * Hypertension-blood pressure stable * Bipolar disorder * Obsessive-compulsive disorder * Depression * Disposition-Dr. Velasquez will discuss with family. Anticipate withdrawal of support later on today Subjective: Coma. Unresponsive. Objective: Vital Signs Temp Pulse Resp BP Pulse Ox 35.6 C L 69 15 135/75 H 93 07/01/17 07:52 07/01/17 08:02 07/01/17 08:02 07/01/17 07:52 07/01/17 08:02 06/30/17 07/01/17 07/02/17 05:59 05:59 05:59 Intake Total 3711.2 Output Total 3735 Balance -23.8 PT 14.5 SEC (12.0-15.0) 06/30/17 04:40 INR 1.11 (0.83-1.16) 06/30/17 04:40 - Time Spent With Patient Time Spent With Patient: 35 min of critical care time spent with patient. Case discussed with primary care physician, Nursing and Respiratory therapy Physical Exam - Physical Exam General Appearance: other (Coma), No alert EENT: ET tube, No PERRL/EOMI Neck: non-tender Respiratory: crackles (Few), No respiratory distress Cardiac/Chest: normal peripheral pulses, regular rate, rhythm Abdomen: normal bowel sounds, non-tender, soft Male Genitalia: deferred Rectal: deferred Skin: normal color, warm/dry Extremities: non-tender Neuro/Psych: other (Negative gag) ICD10 Worksheet Patient Problems: Problems Problem Status Onset Cardiopulmonary arrest Acute Anxiety Acute Coffee ground emesis Acute Confusion Acute Expressive aphasia Acute Fall Acute Generalized weakness Acute Head injury Acute Hypertension Acute Hypochloremia Acute Hyponatremia Acute OCD (obsessive compulsive disorder) Acute Scalp laceration Acute Spinal stenosis Acute Syncope Acute TIA (transient ischemic attack) Acute
[2017-07-01 13:04] VITALS: BP 114/74; TEMP 95.7; O2SAT 96
[2017-07-01] MEDS ORDERED: LORazepam 2 MG/ML INJ IVP PRN (14:35)
[2017-07-01] MEDS ORDERED: SCOPOLAMINE HYDROBROMIDE 1 MG/3 DAYS PATCH TD PRN (14:35)
[2017-07-01 14:51] VITALS: PULSE 66
--- NOTE | 2017-07-01 18:34 | SOAPPROG ---
SOAP Progress Note Assessment/Plan: Assessment: Deep coma anoxic brain injury, poor likelyhood of recovery. Advanced directives that indicate a desire fro no CPR or ventilation. Plan: I spoke with his sister. We decided to remove him from the respirator. Pt . 07/01/17 18:33 Subjective: No response to stimuli. Pupils not reactive. Objective: Vital Signs Temp Pulse Resp BP Pulse Ox 95.7 F L 66 15 114/74 96 07/01/17 12:00 07/01/17 14:00 07/01/17 14:00 07/01/17 12:00 07/01/17 12:00 06/30/17 07/01/17 07/02/17 05:59 05:59 05:59 Intake Total 3711.2 Output Total 3735 Balance -23.8 PT 14.5 SEC (12.0-15.0) 06/30/17 04:40 INR 1.11 (0.83-1.16) 06/30/17 04:40 ICD10 Worksheet Patient Problems: Problems Problem Status Onset Cardiopulmonary arrest Acute Anxiety Acute Coffee ground emesis Acute Confusion Acute Expressive aphasia Acute Fall Acute Generalized weakness Acute Head injury Acute Hypertension Acute Hypochloremia Acute Hyponatremia Acute OCD (obsessive compulsive disorder) Acute Scalp laceration Acute Spinal stenosis Acute Syncope Acute TIA (transient ischemic attack) Acute
== END 2017-07-01 15:19 | disposition expired | DRG 208 ==
LOC: EDUNIT# → F2N 06:50
PROVIDERS: ADMIT Internal Medicine; ATTEND Internal Medicine
PROC: 5A1945Z Respiratory Ventilation, 24-96 Consecutive Hours (ICD-10-PCS; principal; 2017-06-30)
PROC: 0D9670Z Drainage of Stomach with Drainage Device, Via Natural or Artificial Opening (ICD-10-PCS; 2017-06-30)
DX: J96.00 Acute respiratory failure, unspecified whether with hypoxia or hypercapnia (principal); J10.1 Influenza due to other identified influenza virus with other respiratory manifestations; I46.9 Cardiac arrest, cause unspecified; G93.1 Anoxic brain damage, not elsewhere classified; I25.10 Atherosclerotic heart disease of native coronary artery without angina pectoris; I10 Essential (primary) hypertension; E75.6 Lipid storage disorder, unspecified; M81.0 Age-related osteoporosis without current pathological fracture; F41.9 Anxiety disorder, unspecified; J45.991 Cough variant asthma; F42.9 Obsessive-compulsive disorder, unspecified; F98.8 Other specified behavioral and emotional disorders with onset usually occurring in childhood and adolescence; E03.9 Hypothyroidism, unspecified; F31.9 Bipolar disorder, unspecified; Z66 Do not resuscitate; Z85.46 Personal history of malignant neoplasm of prostate; Z90.79 Acquired absence of other genital organ(s)
CPT/HCPCS: 80305; 96374; J2060; J2704; J3010; Q9967